=== PATIENT | female | born 1965 | race Caucasian/White ===

== ENCOUNTER 2023-08-13 09:26 | Outpatient (OUT) | payer MEDICARE, SELFPAY ==
--- NOTE | 2023-08-13 10:30 | MM_ITS ---
Patient Name: BRIE ELDRIDGE MR#: [id number] : 1965 Exam Date: 08/13/2023 Ordering Doctor: DR Jack Robles . RADIOLOGY REPORT PROCEDURE: MM SCREENING MAMMO BI COMPARISON: MG MAMM SCREEN VERONICA W CAD, 07/04/2021. MG MAMM SCREEN VERONICA W CAD, 12/22/2017. MG MAMM SCREEN VERONICA W CAD, 08/12/2022. INDICATIONS: Screening Calculator Name NCI Breast Cancer Risk Assessment Tool 5 Year Breast Cancer Risk 1.40% Lifetime Breast Cancer Risk 8.70% Personal Breast Cancer No Personal Ovarian Cancer No Treatments None Family Cancers None LOCATION: [facility] BREAST COMPOSITION: Scattered areas fibroglandular density. FINDINGS: DIAGNOSTIC CATEGORY 1--NEGATIVE. RIGHT BREAST: No significant suspicious finding. No significant change has occurred. LEFT BREAST: No significant suspicious finding. No significant change has occurred. RECOMMENDATIONS: ROUTINE MAMMOGRAM AND CLINICAL EVALUATION IN 12 MONTHS. PLEASE NOTE: A NORMAL MAMMOGRAM DOES NOT EXCLUDE THE POSSIBILITY OF BREAST CANCER. A CLINICALLY SUSPICIOUS PALPABLE LUMP SHOULD BE BIOPSIED. Dictated by: Alejandro Sanz M.D. on 08/13/2023 at 14:26 Approved by: Alejandro Sanz M.D. on 08/13/2023 at 14:28
== END 2023-08-13 09:27 | disposition home or self-care (01) ==
LOC: MAMMO 09:26
PROVIDERS: PCP Family Medicine; Visit Provider Family Medicine
DX: Z12.31 Encounter for screening mammogram for malignant neoplasm of breast (principal)
CPT/HCPCS: 77067

== ENCOUNTER 2023-10-11 11:38 | Outpatient (OUT) | payer MEDICARE, SELFPAY ==
--- NOTE | 2023-10-11 11:54 | XR_ITS ---
The [address] [address] Patient Name: BRIE ELDRIDGE MRN: [id number] date: 1965 Sex: F Assigned Patient Location: [facility] Current Patient Location: Accession/Order Number: [id number] Exam Date: 10/11/2023 12:15 Report Date: 10/12/2023 07:42 At the request of: NANCY PLATA Procedure: XR shoulder RT min 2V PROCEDURE: XR shoulder RT min 2V COMPARISON: None. HISTORY: pain in right shoulder M25.511 FINDINGS: BONES:No acute fracture or dislocation. Contour deformity of the distal clavicle likely representing resection with cranial displacement in relation to the acromion process. Contour deformity of the humeral head likely remote healed fracture. High riding humeral head suggests chronic rotator cuff tear SOFT TISSUES:Negative. No visible soft tissue swelling. EFFUSION:None visible. OTHER: Negative. XR/XR shoulder RT min 2V IMPRESSION: Posttraumatic changes Likely chronic rotator cuff injury Electronically authenticated by: RON ORTEGA Date: 10/12/2023 07:42
--- OUTSIDE RECORDS SUMMARY | 2023-10-11 11:57 | XMS_ITS | CCD ---
Author Name Unknown Address [address] [facility] [address] [place] [address] Organization [facility] Care Team Providers Care Bath Mix Operator Name Role Phone BONI ., DR CRUZ Primary Care Unavailable FANTA, DR DEZ Lujan Consulting Unavailable HIGHLANDER, NASIR Donis Attending Unavailable HIGHLANDER, NASIR Donis Admitting Unavailable HIGHLANDER, NASIR Donis Consulting Unavailable HOY ., DR CRUZ Consulting Unavailable HOY ., DR CRUZ Primary Care Unavailable HOY ., DR CRUZ Admitting Unavailable HOY ., DR CRUZ Attending Unavailable WEST, DR MINA De La [place]ega Consulting Unavailable HOY ., DR CRUZ Consulting Unavailable HOY ., DR CRUZ Primary Care Unavailable HOY ., DR CRUZ Admitting Unavailable HOY ., DR CRUZ Attending Unavailable HOY ., DR CRUZ Primary Care Unavailable HOY ., DR CRUZ Admitting Unavailable HOY ., DR CRUZ Attending Unavailable HOY ., DR CRUZ Consulting Unavailable WEST, DR MINA De La Vega Consulting Unavailable HOY ., DR CRUZ Primary Care Unavailable RICCO COLE Attending Unavailable KELSEY, RICCO Admitting Unavailable WEST, DR MINA De La [place]ega Consulting Unavailable RICCO COLE Consulting Unavailable Problems Active Problems Problem Classification Problem Date Documented Da te Episodic/Chronic Congestive heart failure; nonhypertensive (1 source) Unspecified diastolic (congestive) heart failure; Translations: [UNSPECIFIED DIASTOLIC HEART FAILURE] Onset: 12-23-2022 Chronic Deficiency and other anemia (1 source) Anemia, unspecified; Translations: [ANEMIA UNSPECIFIED] Onset: 12-23-2022 Episodic Diabetes mellitus without complication (1 source) Other abnormal glucose; Translations: [OTHER ABNORMAL GLUCOSE] Onset: 12-23-2022 Episodic Hypertension with complications and secondary hypertension (1 source) Hypertensive heart disease with heart failure; Translations: [HTN HEART DISEASE W/HEART FAIL] Onset: 12-23-2022 Chronic Nutritional deficiencies (1 source) Vitamin D deficiency, unspecified; Translations: [VITAMIN D DEFICIENCY UNSPECIFIED] Onset: 12-23-2022 Chronic Other connective tissue disease (4 sources) Olecranon bursitis, left elbow; Translations: [OLECRANON BURSITIS LEFT ELBOW] Onset: 12-17-2022 Episodic Unclassified (2 sources) CONTACT W/AND (SUSP) EXPOS COVID-19; Translations: [CONTACT W/AND (SUSP) EXPOS COVID-19] Onset: 08-21-2022 Unclassified (1 source) COUGH, UNSPECIFIED; Translations: [COUGH, UNSPECIFIED] Onset: 08-21-2022 Viral infection (1 source) COVID-19; Translations: [COVID-19] Onset: 08-21-2022 Past or Other Problems Problem Classification Problem Date Documented Da te Episodic/Chronic Fracture of lower limb (4 sources) Displaced fracture of first metatarsal bone, right foot, subsequent encounter for fracture with routine healing; Translations: [DSPL FX 1ST MT BN RT FT SUB FX RTN] Onset: 02-24-2022 Episodic Other screening for suspected conditions (not mental disorders or infectious disease) (4 sources) Encounter for screening mammogram for malignant neoplasm of breast; Translations: [ENC SCR MAMMO MALIG NEOPLASM BREAST] Onset: 08-12-2022 Episodic Other upper respiratory disease (1 source) Nasal congestion; Translations: [NASAL CONGESTION] Onset: 08-21-2022 Episodic Unclassified (1 source) CONTACT W/AND (SUSP) EXPOS COVID-19; Translations: [CONTACT W/AND (SUSP) EXPOS COVID-19] Onset: 08-18-2022 Results Test Name Value Interpretation Reference Range Facility BNPon 12-17-2022 Natriuretic peptide B (Bld) [Mass/Vol] 87.0 pg/mL Normal <=900.0 [facility] Comment on above: Performed By: #### T SH, BNP, T7, CRP, CMP #### [facility] [address] [place] [address] Dr. Nette Rios CBC AUTO DIFFon 12-17-2022 BASO # 0.1 103/ul Normal 0.0-0.1 [facility] Comment on above: Performed By: #### C BC #### [facility] [address] [place] [address] Dr. Nette Rios Basophils/100 WBC (Bld) 1.2 % Normal 0.2-2.0 [facility] Comment on above: Performed By: #### C BC #### [facility] [address] [place] [address] Dr. Nette Rios EO # 0.3 103/ul Normal 0.0-0.7 [facility] Comment on above: Performed By: #### C BC #### [facility] [address] [place] [address] Dr. Nette Rios Eosinophils/100 WBC (Bld) 5.8 % Normal 0.9-7.0 [facility] Comment on above: Performed By: #### C BC #### [facility] [address] [place] [address] Dr. Nette Rios Erythrocyte distribution width (RBC) [Ratio] 12.6 % Normal 11.0-15.0 [facility] Comment on above: Performed By: #### C BC #### [facility] [address] [place] [address] Dr. Nette Rios Hematocrit (Bld) [Volume fraction] 42.6 % Normal 36.0-48.0 [facility] Comment on above: Performed By: #### C BC #### [facility] [address] [place] [address] Dr. Nette Rios Hemoglobin (Bld) [Mass/Vol] 14.0 g/dL Normal 12.0-16.0 [facility] Comment on above: Performed By: #### C BC #### [facility] [address] [place] [address] Dr. Nette Rios IG # 0.01 10e3/ul Normal 0.00-0.03 [facility] Comment on above: Performed By: #### C BC #### [facility] [address] [place] [address] Dr. Nette Rios IG % 0.2 % Normal 0.0-0.5 [facility] Comment on above: Performed By: #### C BC #### [facility] [address] [place] [address] Dr. Nette Rios LYMPH # 2.7 103/ul Normal 1.2-3.8 [facility] Comment on above: Performed By: #### C BC #### [facility] [address] [place] [address] Dr. Nette Rios Lymphocytes/100 WBC (Bld) 48.0 % Normal 20.5-60.0 [facility] Comment on above: Performed By: #### C BC #### [facility] [address] [place] [address] Dr. Nette Rios MANUAL DIFF REQ NO Normal [facility] Comment on above: Performed By: #### C BC #### [facility] [address] [place] [address] Dr. Nette Rios MCH (RBC) [Entitic mass] 30.6 pg Normal 26.7-34.0 [facility] Comment on above: Performed By: #### C BC #### [facility] [address] [place] [address] Dr. Nette Rios MCHC (RBC) [Mass/Vol] 32.9 g/dL Normal 29.9-35.2 [facility] Comment on above: Performed By: #### C BC #### [facility] [address] [place] [address] Dr. Nette Rios MCV (RBC) [Entitic vol] 93.2 fL Normal 81.0-99.0 [facility] Comment on above: Performed By: #### C BC #### [facility] [address] [place] [address] Dr. Nette Rios MONO # 0.4 103/ul Normal 0.3-0.8 [facility] Comment on above: Performed By: #### C BC #### [facility] [address] [place] [address] Dr. Nette Rios Monocytes/100 WBC (Bld) 7.4 % Normal 1.7-12.0 [facility] Comment on above: Performed By: #### C BC #### [facility] [address] [place] [address] Dr. Nette Rios NEUT # 2.1 103/ul Normal 1.4-6.5 [facility] Comment on above: Performed By: #### C BC #### [facility] [address] [address] [address] Nette Rios Neutrophils/100 WBC (Bld) 37.4 % Critically low 43.0-75.0 [facility] Comment on above: Performed By: #### C BC #### [facility] [address] [address] [address] Nette Rios Platelet mean volume (Bld) [Entitic vol] 10.7 fL Normal 9.5-13.5 [facility] Comment on above: Performed By: #### C BC #### [facility] [address] [address] [address] Nette Rios PLT 279 103/ul Normal 150-450 [facility] Comment on above: Performed By: #### C BC #### [facility] [address] [address] [address] Nette Rios RBC 4.57 106/ul Normal 4.20-5.40 [facility] Comment on above: Performed By: #### C BC #### [facility] [address] [address] [address] Nette Rios WBC 5.7 103/ul Normal 4.0-11.0 [facility] Comment on above: Performed By: #### C BC #### [facility] [address] [address] [address] Nette Rios CRPon 12-17-2022 CRP [Mass/Vol] mg/L Normal <=1.0 [facility] Comment on above: Performed By: #### T SH, BNP, T7, CRP, CMP ####[facility] [address] [address]Dr. Nette Rios FREE THYROXINE INDEX T7on FTI 2.85 Normal 1.30-4.50 [facility] Comment on above: Performed By: #### T SH, BNP, T7, CRP, CMP ####[facility] [address] [address]Dr. Nette Rios T3U 31.0 % Normal 30.0-39.0 [facility] Comment on above: Performed By: #### T SH, BNP, T7, CRP, CMP ####[facility] [address] [address]DrNica Rios T4 [Mass/Vol] 9.20 ug/dL Normal 4.80-13.90 [facility] Comment on above: Performed By: #### T SH, BNP, T7, CRP, CMP ####[facility] [address] [address]DrNica Rios GLYCOHEMOGLOBIN A1Con 2022 ADA RECOMMENDATION SEE BELOW Normal [facility] Comment on above: Result Comment: ADA RECOMMENDED LIMIT 4.0 - 6.0 ADA THERAPEUTIC TARGET < 7.0 ACTION SUGGESTED > 7.0 Performed By: #### A 1C ####[facility] [address] [address]Dr. Nette Rios Glucose [Mass/Vol] 97 mg/dL Normal [facility] Comment on above: Performed By: #### A 1C ####[facility] [address] [address]DrNica Rios HbA1c (Bld) [Mass fraction] 5.0 % Normal 4.5-6.2 [facility] Comment on above: Performed By: #### A 1C ####[facility] [address] [address]Dr. Nette Rios IRONon 12-17-2022 Iron [Mass/Vol] 97.0 ug/dL Normal 50.0-170.0 [facility] Comment on above: Performed By: #### V ITAD, IRON #### [facility] [address] [address] [address] Nette Rios PROF 14(COMP METB)on 023 Albumin [Mass/Vol] 4.0 g/dL Normal 3.4-5.0 [facility] Comment on above: Performed By: #### T SH, BNP, T7, CRP, CMP ####[facility] [address] [address]Dr. Nette Rios Albumin/Globulin [Mass ratio] 1.1 {ratio} Normal [facility] Comment on above: Performed By: #### T SH, BNP, T7, CRP, CMP ####[facility] [address] [address]Dr. Nette Rios ALP [Catalytic activity/Vol] 74 U/L Normal 46-116 [facility] Comment on above: Performed By: #### T SH, BNP, T7, CRP, CMP ####[facility] [address] [address]Dr. Nette Rios ALT [Catalytic activity/Vol] 21 U/L Normal 14-59 [facility] Comment on above: Performed By: #### T SH, BNP, T7, CRP, CMP ####[facility] [address] [place], [place] [address]Dr. Nette Rios Anion gap [Moles/Vol] 9.9 mmol/L Normal [facility] Comment on above: Performed By: #### T SH, BNP, T7, CRP, CMP ####[facility] [address] [place], [place] [address]Dr. Nette Rios AST [Catalytic activity/Vol] 16 U/L Normal 15-37 [facility] Comment on above: Performed By: #### T SH, BNP, T7, CRP, CMP ####[facility] [address] [address]Dr. Nette Rios Bilirubin [Mass/Vol] 0.6 mg/dL Normal 0.2-1.0 [facility] Comment on above: Performed By: #### T SH, BNP, T7, CRP, CMP ####[facility] [address] [address]Dr. Mattiewallace Rios Calcium [Mass/Vol] 9.3 mg/dL Normal 8.5-10.1 [facility] Comment on above: Performed By: #### T SH, BNP, T7, CRP, CMP ####[facility] [address] [address]Dr. Nette Rios Chloride [Moles/Vol] 104 mmol/L Normal 98-107 [facility] Comment on above: Performed By: #### T SH, BNP, T7, CRP, CMP ####[facility] [address] [address]Dr. Nette Rios CO2 [Moles/Vol] 28.1 mmol/L Normal 21.0-32.0 [facility] Comment on above: Performed By: #### T SH, BNP, T7, CRP, CMP ####[facility] [address] [place], [place] [address]Dr. Nette Rios Creatinine [Mass/Vol] 0.69 mg/dL Normal 0.55-1.02 [facility] Comment on above: Performed By: #### T SH, BNP, T7, CRP, CMP ####[facility] [address] [place], [place] [address]Dr. Nette Rios EGFR-AF PUERTO RICAN >60 Normal >=60 [facility] Comment on above: Performed By: #### T SH, BNP, T7, CRP, CMP ####[facility] [address] [place], [place] [address]Dr. Nette Rios EGFR-NON AF PUERTO RICAN >60 Normal >=60 [facility] Comment on above: Performed By: #### T SH, BNP, T7, CRP, CMP ####[facility] [address] [place], [place] [address]Dr. Nette Rios Globulin (S) [Mass/Vol] 3.6 g/dL Normal [facility] Comment on above: Performed By: #### T SH, BNP, T7, CRP, CMP ####[facility] [address] [place], [place] [address]Dr. Nette Rios Glucose [Mass/Vol] 100 mg/dL Normal 74-106 [facility] Comment on above: Performed By: #### T SH, BNP, T7, CRP, CMP ####[facility] [address] [place], [place] [address]Dr. Nette Rios Potassium [Moles/Vol] 4.0 mmol/L Normal 3.5-5.1 [facility] Comment on above: Performed By: #### T SH, BNP, T7, CRP, CMP ####[facility] [address] [id number]. Nette Rios Protein [Mass/Vol] 7.6 g/dL Normal 6.4-8.2 [facility] Comment on above: Performed By: #### T SH, BNP, T7, CRP, CMP ####[facility] [address] [id number]. Nette Rios Sodium [Moles/Vol] 138 mmol/L Normal 136-145 [facility] Comment on above: Performed By: #### T SH, BNP, T7, CRP, CMP ####[facility] [address] [address]Dr. Nette Rios Urea nitrogen [Mass/Vol] 11.0 mg/dL Normal 7.0-18.0 [facility] Comment on above: Performed By: #### T SH, BNP, T7, CRP, CMP ####[facility] [address] [address]Dr. Nette Rios Urea nitrogen/Creatinine [Mass ratio] 15.9 mg/mg Normal [facility] Comment on above: Performed By: #### T SH, BNP, T7, CRP, CMP ####[facility] [address] [address]Dr. Nette Rios TSHon 12-17-2022 TSH 2.485 uIU/mL Normal 0.358-3.740 [facility] Comment on above: Performed By: #### T SH, BNP, T7, CRP, CMP ####[facility] [address] [id number]. Nette Rios VITAMIN D 25 OHon 12-17-2022 VIT D 25-OH 53.4 ng/mL Normal [facility] Comment on above: Performed By: #### V ITAD, IRON #### [facility] [address] [address] [address] Nette Rios VIT D RANGES SEE BELOW Normal [facility] Comment on above: Result Comment: <20 ng/mL Vit D deficient 20 - <30 ng/mL Vit D insufficient 30 - 100 ng/mL Vit D sufficient >100 ng/mL Potential Toxicity Performed By: #### V ITAD, IRON #### [facility] [address] [address] [address] Nette Rios Covid-19 PCR ([facility])on SARS-CoV-2 (COVID-19) RNA NERY+probe Ql (Unsp spec) Detected Critically abnormal NOT DETECTED [facility] Comment on above: Result Comment: This test is not yet approved or cleared by the [place] FDA. When there are no FDA-approved or cleared tests available, and other criteria are met, FDA can make tests available under an emergency access mechanism called an Emergency Use Authorization (EUA). The EUA for this test is supported by the [place] of Health and Human Service's (HHS's) declaration that circumstances exist to justify the emergency use of in vitro diagnostics for the detection and/or diagnosis of the virus that causes COVID-19. This EUA will remain in effect (meaning this test can be used) for the duration of the COVID-19 declaration justifying emergency of IVDs, unless it is terminated or revoked by FDA (after which the test may no longer be used). Performed By: #### C VDTBH #### [facility] [address] [place] [address] Dr. Nette Rios INFLUENZA A AND B AGon 08-[facility] SEE BELOW Normal [facility] Comment on above: Result Comment: Nega tive for Flu A protein angiten. Infection due to Flu A cannot be ruled out. Flu A angiten in the sample may be below the detection limit of the test. Performed By: #### I NFLUAB #### [facility] [address] [place] [address] Dr. Nette Rios INFLUBNEG SEE BELOW Normal [facility] Comment on above: Result Comment: Nega tive for Flu B protein antigen. Infection due to Flu B cannot be ruled out. Flu B antigen in the sample may be below the detection limit of the test. Performed By: #### I NFLUAB #### [facility] [address] [place] [address] Dr. Nette Rios INFLUENZA A AG Negative Normal NEGATIVE SEE COMMENT [facility] Comment on above: Performed By: #### I NFLUAB #### [facility] [address] [address] [address] Nette Rios INFLUENZA B AG Negative Normal NEGATIVE SEE COMMENT [facility] Comment on above: Performed By: #### I NFLUAB #### [facility] [address] [address] [address] Nette Rios MG MAMM SCREEN VERONICA W CADon 1 10-13-2021 MG MAMM SCREEN VERONICA W CAD Patient: BRIE ELDRIDGE Exam Date: 08/12/2022 : 1965 Gender:F Ordering : DR NANCY PLATA . Admission #: [id number] Family : Order #: [id number] CLICK HERE TO VIEW EXAM RADIOLOGY REPORT PROCEDURE: MAMMOGRAM BILATERAL SCREENING DIGITAL WITH COMPUTER AIDED DETECTION COMPARISON: MG MAMM SCREEN VERONICA W CAD, 07/04/2021. INDICATIONS: Screening mammography Calculator Name NCI Breast Cancer Risk Assessment Tool 5 Year Breast Cancer Risk 1.40% Lifetime Breast Cancer Risk 8.90% Personal Breast Cancer No Personal Ovarian Cancer No Treatments None Family Cancers None LOCATION: [facility] BREAST COMPOSITION: Scattered areas fibroglandular density. FINDINGS: DIAGNOSTIC CATEGORY 1--NEGATIVE. NO CHANGE FROM COMPARISON ASSESSMENT. Scattered benign-appearing calcifications are present. RIGHT BREAST: No significant suspicious finding. LEFT BREAST: No significant suspicious finding. RECOMMENDATIONS: ROUTINE MAMMOGRAM AND CLINICAL EVALUATION IN 12 MONTHS. PLEASE NOTE: A NORMAL MAMMOGRAM DOES NOT EXCLUDE THE POSSIBILITY OF BREAST CANCER. A CLINICALLY SUSPICIOUS PALPABLE LUMP SHOULD BE BIOPSIED. Dictated by: Mina Ortega MD on 08/13/2022 at 11:35 Approved by: Mina Ortega MD on 08/13/2022 at 11:36 Normal [facility] Encounters Encounter Date Encounter Type Care Provider Facility Start: 12-17-2022 End: 12-18-[address] NANCY PLATA . Facility:[facility] Start: 08-18-2022 End: 08-18-[address] NANCY PLATA . Facility:[facility] Start: 08-12-2022 End: 08-13-[address] NANCY PLATA . Facility:[facility] Start: 02-24-2022 End: 02-25-[address] NANCY PLATA . Facility:[facility] Start: 01-07-2022 End: 01-08-[address] NANCY PLATA . Facility: Payers Date Payer Category Payer Unknown [id number] 2.16.84 [id number] 1965 Unknown [id number] 2.16.84 [id number] 1965 Unknown [id number] 2.16.84 [id number] 1965 Unknown [id number] 2.16.84 [id number] 1965 Unknown [id number] 2.16.84 [id number] 1958 Medicare [id number] Clinical Note 12-17-2022 Note Date & Type Note Facility 12-17-2022 Note PROCEDURE: XR HIP RT 2 3V W PELVIS COMPARISON: None. HISTORY: Bursitis of olecranon of left elbow FINDINGS: BONES:Moderate degenerative changes of the spine. Mild bilateral hip osteoarthropathy. SOFT TISSUES: Well-circumscribed calcification lateral to the greater trochanter. No visible soft tissue swelling. EFFUSION:None visible. OTHER: Negative. IMPRESSION: No acute abnormality Electronically authenticated by: MINA ORTEGA Date: 2022-12-17 09:58 [facility] Clinical Note 02-24-2022 Note Date & Type Note Facility 02-24-2022 Note PROCEDURE: XR FOOT R T MIN 3 VIEWS COMPARISON: 01/07/2022 HISTORY: Pain in right foot FINDINGS: BONES:Stable angulation of a dorsal fixation plate across the first metatarsal-phalangeal joint. Widening/incomplete bony bridging along the plantar diffuse joint. No additional fracture or dislocation. Subchondral cystic change lateral cuneiform. Persistent flexion of the toes limits their evaluation. SOFT TISSUES:Negative. No visible soft tissue swelling. EFFUSION:None visible. OTHER: Negative. IMPRESSION: Stable exam Electronically authenticated by: MINA ORTEGA Date: 2022-02-24 16:38 [facility] Clinical Note 05-25-2022 Note Date & Type Note Facility 01-07-2022 Note PROCEDURE: XR FOOT R T MIN 3 VIEWS HISTORY: Pain in right foot COMPARISON: XR foot right 12/16/2021 FINDINGS: BONES:Mechanical fusion of the first tarsal-metatarsal joints with increasing sclerosis of the bone ends and intervening space. Osseous fusion of the first toe interphalangeal joint. Generalized osteopenia of the first toe and degenerative/posttraumatic changes. SOFT TISSUES:No visible soft tissue swelling. EFFUSION:None visible. OTHER: Negative. IMPRESSION: 1. First metatarsophalangeal joint fusion without evidence of hardware failure or change in alignment. Increasing ossification of intervening bone space consistent with ongoing bone healing/fusion. Electronically authenticated by: DEZ JEWELL Date: 2022-01-07 11:16 [facility] Summary Purpose Family History No Family History Records Found Advance Directives No Advanced Directives Records Found Additional Source Comments INFORMATION SOURCE (unrecogn ized section and content) DATE CREATED AUTHOR 12/24/2022 [facility] FOR RECORDS PERTAINING TO PATIENTS WHO ARE OR HAVE BEEN ENROLLED IN A CHEMICAL DEPENDENCY/SUBSTANCEABUSE PROGRAM, SOME INFORMATION MAY BE OMITTED. This clinical summary was aggregated from multiple sources. Caution should be exercised in using it in the provision of clinical care. This summary normalizes information from multiple sources, and as a consequence, information in this document may materially change the coding, format and clinical context of patient data. In addition, data may be omitted in some cases. CLINICAL DECISIONS SHOULD BE BASED ON THE PRIMARY CLINICAL RECORDS. [facility] [employer] [facility] provides no warranty or guarantee of the accuracy or completeness of information in this document.
== END 2023-10-11 11:39 | disposition home or self-care (01) ==
LOC: RAD 11:42
PROVIDERS: PCP Family Medicine; Visit Provider Family Medicine
DX: M25.511 Pain in right shoulder (principal)
CPT/HCPCS: 73030

== ENCOUNTER 2023-10-25 10:14 | Day surgery (SDC) | payer MEDICARE, SELFPAY ==
--- NOTE | 2023-10-25 10:18 | FL_ITS ---
[address] [address] Patient Name: BRIE ELDRIDGE MRN: [id number] date: 1965 Sex: F [place]igned Patient Location: [place] Current Patient Location: [place] Accession/Order Number: [id number] Exam Date: 10/25/2023 10:55 Report Date: 10/25/2023 12:12 At the request of: NANCY PLATA Procedure: FL shoulder inj RT EXAMINATION: FL shoulder inj RT, FL guided needle placement HISTORY: Right Shoulder Pain COMPARISON: No relevant comparison available. TECHNIQUE: An arthrogram was performed under fluoroscopic guidance using non-ionic contrast material in the usual sterile manner after obtaining informed consent. Standard level fluoroscopic mode of operation utilized. FINDINGS: JOINT: Right shoulder NEEDLE: 25 gauge, 5.5 spinal needle. MEDICATION: 2cc buffered 1% lidocaine for subcutaneous anesthesia 2cc Omnipaque-240 iodinated contrast to visualize the joint space 40 mg Depo-Medrol and one mL, 3 mL's of 0.5% bupivacaine, 3 cc of sterile saline injected into the joint space. TECHNIQUE: Anterior approach. A single stick was successful in gaining access to the joint space. COMPLICATIONS: None. BONES: Severe glenohumeral joint osteoarthritis with likely mnfp-fd-dyll articulation. Contour deformity of the distal clavicle likely representing prior resection. The clavicle is caudally displaced in relation to the acromion process. High riding humeral head suggests rotator cuff injury OTHER: Extensors of contrast into the subacromial subdeltoid bursa FL/FL shoulder inj RT IMPRESSION: Technically successful right shoulder arthrogram Severe glenohumeral osteoarthritis Rotator cuff tear/injury with high riding humeral head and opacification of the subacromial subdeltoid bursa Electronically authenticated by: RON ORTEGA Date: 10/25/2023 12:12
--- NOTE | 2023-10-25 10:18 | FL_ITS ---
[address] [address] Patient Name: BRIE ELDRIDGE MRN: [id number] date: 1965 Sex: F Assigned Patient Location: [place] Current Patient Location: [place] Accession/Order Number: [id number] Exam Date: 10/25/2023 10:55 Report Date: 10/25/2023 12:12 At the request of: NANCY PLATA Procedure: FL guided needle placement EXAMINATION: FL shoulder inj RT, FL guided needle placement HISTORY: Right Shoulder Pain COMPARISON: No relevant comparison available. TECHNIQUE: An arthrogram was performed under fluoroscopic guidance using non-ionic contrast material in the usual sterile manner after obtaining informed consent. Standard level fluoroscopic mode of operation utilized. FINDINGS: JOINT: Right shoulder NEEDLE: 25 gauge, 5.5 spinal needle. MEDICATION: 2cc buffered 1% lidocaine for subcutaneous anesthesia 2cc Omnipaque-240 iodinated contrast to visualize the joint space 40 mg Depo-Medrol and one mL, 3 mL's of 0.5% bupivacaine, 3 cc of sterile saline injected into the joint space. TECHNIQUE: Anterior approach. A single stick was successful in gaining access to the joint space. COMPLICATIONS: None. BONES: Severe glenohumeral joint osteoarthritis with likely ceih-ko-cpic articulation. Contour deformity of the distal clavicle likely representing prior resection. The clavicle is caudally displaced in relation to the acromion process. High riding humeral head suggests rotator cuff injury OTHER: Extensors of contrast into the subacromial subdeltoid bursa FL/FL guided needle placement IMPRESSION: Technically successful right shoulder arthrogram Severe glenohumeral osteoarthritis Rotator cuff tear/injury with high riding humeral head and opacification of the subacromial subdeltoid bursa Electronically authenticated by: RON ORTEGA Date: 10/25/2023 12:12
--- OUTSIDE RECORDS SUMMARY | 2023-10-25 10:18 | XMS_ITS | CCD ---
Author Name Unknown Address [address] [place] [address] Organization [facility] Care Team Providers Care Retail Area Manager Name Role Phone BONI ., DR CRUZ [...] B (Bld) [Mass/Vol] 87.0 pg/mL Normal <=900.0 [facility] Comment on above: Performed By: #### T SH, BNP, T7, CRP, CMP #### [facility] [address] [place] [address] Dr. Nette Rios CBC AUTO DIFFon 12-17-2022 BASO # 0.1 103/ul Normal 0.0-0.1 [facility] Comment on above: Performed By: #### C BC #### [facility] [address] [place] [address] Dr. Nette Rios Basophils/100 WBC (Bld) 1.2 % Normal 0.2-2.0 [facility] Comment on above: Performed By: #### C BC #### [facility] [address] [place] [address] Dr. Nette Rios EO # 0.3 103/ul Normal 0.0-0.7 [facility] Comment on above: Performed By: #### C BC #### [facility] [address] [place] [address] Dr. Nette Rios Eosinophils/100 WBC (Bld) 5.8 % Normal 0.9-7.0 [facility] Comment on above: Performed By: #### C BC #### [facility] [address] [place] [address] Dr. Nette Rios Erythrocyte distribution width (RBC) [Ratio] 12.6 % Normal 11.0-15.0 [facility] Comment on above: Performed By: #### C BC #### [facility] [address] [place] [address] Dr. Nette Rios Hematocrit (Bld) [Volume fraction] 42.6 % Normal 36.0-48.0 [facility] Comment on above: Performed By: #### C BC #### [facility] [address] [place] [address] Dr. Nette Rios Hemoglobin (Bld) [Mass/Vol] 14.0 g/dL Normal 12.0-16.0 [facility] Comment on above: Performed By: #### C BC #### [facility] [address] [place] [address] Dr. Nette Rios IG # 0.01 10e3/ul Normal 0.00-0.03 [facility] Comment on above: Performed By: #### C BC #### [facility] [address] [place] [address] Dr. Nette Rios IG % 0.2 % Normal 0.0-0.5 [facility] Comment on above: Performed By: #### C BC #### [facility] [address] [place] [address] Dr. Nette Rios LYMPH # 2.7 103/ul Normal 1.2-3.8 [facility] Comment on above: Performed By: #### C BC #### [facility] [address] [place] [address] Dr. Nette Rios Lymphocytes/100 WBC (Bld) 48.0 % Normal 20.5-60.0 [facility] Comment on above: Performed By: #### C BC #### [facility] [address] [place] [address] Dr. Nette Rios MANUAL DIFF REQ NO Normal [facility] Comment on above: Performed By: #### C BC #### [facility] [address] [place] [address] Dr. Nette Rios MCH (RBC) [Entitic mass] 30.6 pg Normal 26.7-34.0 [facility] Comment on above: Performed By: #### C BC #### [facility] [address] [place] [address] Dr. Nette Rios MCHC (RBC) [Mass/Vol] 32.9 g/dL Normal 29.9-35.2 [facility] Comment on above: Performed By: #### C BC #### [facility] [address] [place] [address] Dr. Nette Rios MCV (RBC) [Entitic vol] 93.2 fL Normal 81.0-99.0 [facility] Comment on above: Performed By: #### C BC #### [facility] [address] [place] [address] Dr. Nette Rios MONO # 0.4 103/ul Normal 0.3-0.8 [facility] Comment on above: Performed By: #### C BC #### [facility] [address] [place] [address] Dr. Nette Rios Monocytes/100 WBC (Bld) 7.4 % Normal 1.7-12.0 [facility] Comment on above: Performed By: #### C BC #### [facility] [address] [place] [address] Dr. Nette Rios NEUT # 2.1 103/ul Normal 1.4-6.5 [facility] Comment on above: Performed By: #### C BC #### [facility] [address] [address] [address] Nette Rios Neutrophils/100 WBC (Bld) 37.4 % Critically low 43.0-75.0 [facility] Comment on above: Performed By: #### C BC #### [facility] [address] [address] [address] Nette Rios Platelet mean volume (Bld) [Entitic vol] 10.7 fL Normal 9.5-13.5 [facility] Comment on above: Performed By: #### C BC #### [facility] [address] [address] [address] Nette Rios PLT 279 103/ul Normal 150-450 [facility] Comment on above: Performed By: #### C BC #### [facility] [address] [address] [address] Nette Rios RBC 4.57 106/ul Normal 4.20-5.40 [facility] Comment on above: Performed By: #### C BC #### [facility] [address] [address] [address] Nette Rios WBC 5.7 103/ul Normal 4.0-11.0 [facility] Comment on above: Performed By: #### C BC #### [facility] [address] [address] [address] Nette Rios CRPon 12-17-2022 CRP [Mass/Vol] mg/L Normal <=1.0 [facility] Comment on above: Performed By: #### T SH, BNP, T7, CRP, CMP ####[facility] [address] [address]Dr. Nette Rios FREE THYROXINE INDEX T7on FTI 2.85 Normal 1.30-4.50 [facility] Comment on above: Performed By: #### T SH, BNP, T7, CRP, CMP ####[facility] [address] [address]Dr. Nette Rios T3U 31.0 % Normal 30.0-39.0 [facility] Comment on above: Performed By: #### T SH, BNP, T7, CRP, CMP ####[facility] [address] [address]DrNica Rios T4 [Mass/Vol] 9.20 ug/dL Normal 4.80-13.90 [facility] Comment on above: Performed By: #### T SH, BNP, T7, CRP, CMP ####[facility] [address] [address]DrNica Rios GLYCOHEMOGLOBIN A1Con 2022 ADA RECOMMENDATION SEE BELOW Normal [facility] Comment on above: Result Comment: ADA RECOMMENDED LIMIT 4.0 - 6.0 ADA THERAPEUTIC TARGET < 7.0 ACTION SUGGESTED > 7.0 Performed By: #### A 1C ####[facility] [address] [address]Dr. Nette Rios Glucose [Mass/Vol] 97 mg/dL Normal [facility] Comment on above: Performed By: #### A 1C ####[facility] [address] [address]DrNica Rios HbA1c (Bld) [Mass fraction] 5.0 % Normal 4.5-6.2 [facility] Comment on above: Performed By: #### A 1C ####[facility] [address] [address]Dr. Nette Rios IRONon 12-17-2022 Iron [Mass/Vol] 97.0 ug/dL Normal 50.0-170.0 [facility] Comment on above: Performed By: #### V ITAD, IRON #### [facility] [address] [address] [address] Nette Rios PROF 14(COMP METB)on 023 Albumin [Mass/Vol] 4.0 g/dL Normal 3.4-5.0 [facility] Comment on above: Performed By: #### T SH, BNP, T7, CRP, CMP ####[facility] [address] [address]Dr. Nette Rios Albumin/Globulin [Mass ratio] 1.1 {ratio} Normal [facility] Comment on above: Performed By: #### T SH, BNP, T7, CRP, CMP ####[facility] [address] [address]Dr. Nette Rios ALP [Catalytic activity/Vol] 74 U/L Normal 46-116 [facility] Comment on above: Performed By: #### T SH, BNP, T7, CRP, CMP ####[facility] [address] [address]Dr. Nette Rios ALT [Catalytic activity/Vol] 21 U/L Normal 14-59 [facility] Comment on above: Performed By: #### T SH, BNP, T7, CRP, CMP ####[facility] [address] [place], [place] [address]Dr. Nette Rios Anion gap [Moles/Vol] 9.9 mmol/L Normal [facility] Comment on above: Performed By: #### T SH, BNP, T7, CRP, CMP ####[facility] [address] [place], [place] [address]Dr. Nette Rios AST [Catalytic activity/Vol] 16 U/L Normal 15-37 [facility] Comment on above: Performed By: #### T SH, BNP, T7, CRP, CMP ####[facility] [address] [address]Dr. Nette Rios Bilirubin [Mass/Vol] 0.6 mg/dL Normal 0.2-1.0 [facility] Comment on above: Performed By: #### T SH, BNP, T7, CRP, CMP ####[facility] [address] [address]Dr. Mattiewallace Rios Calcium [Mass/Vol] 9.3 mg/dL Normal 8.5-10.1 [facility] Comment on above: Performed By: #### T SH, BNP, T7, CRP, CMP ####[facility] [address] [address]Dr. Nette Rios Chloride [Moles/Vol] 104 mmol/L Normal 98-107 [facility] Comment on above: Performed By: #### T SH, BNP, T7, CRP, CMP ####[facility] [address] [address]Dr. Nette Rios CO2 [Moles/Vol] 28.1 mmol/L Normal 21.0-32.0 [facility] Comment on above: Performed By: #### T SH, BNP, T7, CRP, CMP ####[facility] [address] [place], [place] [address]Dr. Nette Rios Creatinine [Mass/Vol] 0.69 mg/dL Normal 0.55-1.02 [facility] Comment on above: Performed By: #### T SH, BNP, T7, CRP, CMP ####[facility] [address] [place], [place] [address]Dr. Nette Rios EGFR-AF PUERTO RICAN >60 Normal >=60 [facility] Comment on above: Performed By: #### T SH, BNP, T7, CRP, CMP ####[facility] [address] [place], [place] [address]Dr. Nette Rios EGFR-NON AF PUERTO RICAN >60 Normal >=60 [facility] Comment on above: Performed By: #### T SH, BNP, T7, CRP, CMP ####[facility] [address] [place], [place] [address]Dr. Nette Rios Globulin (S) [Mass/Vol] 3.6 g/dL Normal [facility] Comment on above: Performed By: #### T SH, BNP, T7, CRP, CMP ####[facility] [address] [place], [place] [address]Dr. Nette Rios Glucose [Mass/Vol] 100 mg/dL Normal 74-106 [facility] Comment on above: Performed By: #### T SH, BNP, T7, CRP, CMP ####[facility] [address] [place], [place] [address]Dr. Nette Rios Potassium [Moles/Vol] 4.0 mmol/L Normal 3.5-5.1 [facility] Comment on above: Performed By: #### T SH, BNP, T7, CRP, CMP ####[facility] [address] [id number]. Nette Rios Protein [Mass/Vol] 7.6 g/dL Normal 6.4-8.2 [facility] Comment on above: Performed By: #### T SH, BNP, T7, CRP, CMP ####[facility] [address] [id number]. Nette Rios Sodium [Moles/Vol] 138 mmol/L Normal 136-145 [facility] Comment on above: Performed By: #### T SH, BNP, T7, CRP, CMP ####[facility] [address] [address]Dr. Nette Rios Urea nitrogen [Mass/Vol] 11.0 mg/dL Normal 7.0-18.0 [facility] Comment on above: Performed By: #### T SH, BNP, T7, CRP, CMP ####[facility] [address] [address]Dr. Nette Rios Urea nitrogen/Creatinine [Mass ratio] 15.9 mg/mg Normal [facility] Comment on above: Performed By: #### T SH, BNP, T7, CRP, CMP ####[facility] [address] [address]Dr. Nette Rios TSHon 12-17-2022 TSH 2.485 uIU/mL Normal 0.358-3.740 [facility] Comment on above: Performed By: #### T SH, BNP, T7, CRP, CMP ####[facility] [address] [id number]. Nette Rios VITAMIN D 25 OHon 12-17-2022 VIT D 25-OH 53.4 ng/mL Normal [facility] Comment on above: Performed By: #### V ITAD, IRON #### [facility] [address] [address] [address] Nette Rios VIT D RANGES SEE BELOW Normal [facility] Comment on above: Result Comment: <20 ng/mL Vit D deficient 20 - <30 ng/mL Vit D insufficient 30 - 100 ng/mL Vit D sufficient >100 ng/mL Potential Toxicity Performed By: #### V ITAD, IRON #### [facility] [address] [address] [address] Nette Rios Covid-19 PCR ([facility])on SARS-CoV-2 (COVID-19) RNA NERY+probe Ql (Unsp spec) Detected Critically abnormal NOT DETECTED [facility] Comment on above: Result Comment: This test is not yet approved or cleared by the [place] FDA. When there are no FDA-approved or cleared tests available, and other criteria are met, FDA can make tests available under an emergency access mechanism called an Emergency Use Authorization (EUA). The EUA for this test is supported by the Manufacturing Team Member of Health and Human Service's (HHS's) declaration [...] used). Performed By: #### C VDTBH #### [facility] [address] [place] [address] Dr. Nette Rios INFLUENZA A AND B AGon 08-[address] [facility] SEE BELOW Normal [facility] Comment on above: Result Comment: Nega tive for Flu A protein angiten. Infection due to Flu A cannot be ruled out. Flu A angiten in the sample may be below the detection limit of the test. Performed By: #### I NFLUAB #### [facility] [address] [place] [address] Dr. Nette Rios INFLUBNEG SEE BELOW Normal [facility] Comment on above: Result Comment: Nega tive for Flu B protein antigen. Infection due to Flu B cannot be ruled out. Flu B antigen in the sample may be below the detection limit of the test. Performed By: #### I NFLUAB #### [facility] [address] [place] [address] Dr. Nette Rios INFLUENZA A AG Negative Normal NEGATIVE SEE COMMENT [facility] Comment on above: Performed By: #### I NFLUAB #### [facility] [address] [address] [address] Nette Rios INFLUENZA B AG Negative Normal NEGATIVE SEE COMMENT [facility] Comment on above: Performed By: #### I NFLUAB #### [facility] [address] [address] [address] Nette Rios MG MAMM SCREEN VERONICA W CADon 1 10-13-2021 MG MAMM SCREEN VERONICA W CAD Patient: BRIE ELDRIDGE Exam Date: 08/12/2022 : 1965 Gender:F Ordering : DR NANCY PLATA . Admission #: [id number] Family : Order #: [id number] CLICK HERE TO VIEW EXAM RADIOLOGY REPORT PROCEDURE: MAMMOGRAM BILATERAL SCREENING DIGITAL WITH COMPUTER AIDED DETECTION COMPARISON: MG MAMM SCREEN VERONICA W CAD, 07/04/2021. INDICATIONS: Screening mammography Calculator Name NCI Breast Cancer Risk Assessment Tool 5 Year Breast Cancer Risk 1.40% Lifetime Breast Cancer Risk 8.90% Personal Breast Cancer No Personal Ovarian Cancer No Treatments None Family Cancers None LOCATION: [facility] BREAST COMPOSITION: Scattered areas fibroglandular density. [...] Ortega MD on 08/13/2022 at 11:36 Normal [facility] Encounters Encounter Date Encounter Type Care Provider [...] Facility: Payers Date Payer Category Payer Unknown [id number] 2.16.84 [id number] 1965 Unknown [id number] 2.16.84 [id number] 1965 Unknown [id number] 2.16.84 [id number] 1965 Unknown [id number] 2.16.84 [id number] 1965 Unknown [id number] 2.16.84 [id number] 1958 Medicare [id number] Clinical Note 12-17-2022 Note Date & Type [...] by: MINA ORTEGA Date: 2022-12-17 09:58 [facility] Clinical Note 02-24-2022 Note Date & [...] by: MINA ORTEGA Date: 2022-02-24 16:38 [facility] Clinical Note 05-25-2022 Note Date & [...] authenticated by: DEZ JEWELL Date: 2022-01-07 11:16 [facility] Summary Purpose Family History No Family History Records Found Advance Directives No Advanced Directives Records Found Additional Source Comments INFORMATION SOURCE (unrecogn ized section and content) DATE CREATED AUTHOR 12/24/2022 [facility] FOR RECORDS PERTAINING TO PATIENTS WHO [...] BE BASED ON THE PRIMARY CLINICAL RECORDS. [facility]. provides no warranty or guarantee of the accuracy or completeness of information in this document.
[2023-10-25] MEDS: LIDOCAINE HCL 10 ML, SODIUM BICARBONATE 1 MEQ INJ (11:20)
[2023-10-25] MEDS: TRIAMCINOLONE ACETONIDE 40 MG/ML VIAL INJ (11:20)
[2023-10-25] MEDS: BUPIVACAINE HCL 0.5% PF 50 MG/10 ML VIAL 2 ML INJ (11:20)
--- NOTE | 2023-10-25 13:02 | SUR.PREOP ---
10/21/23 Pt mom Leticia instructed on date, time, prep, and procedure.
== END 2023-10-25 11:45 | disposition home or self-care (01) ==
LOC: FL 10:14
PROVIDERS: Radiology Diagnostic Radiology; PCP Family Medicine; Visit Provider Family Medicine
DX: M25.511 Pain in right shoulder (principal); M19.011 Primary osteoarthritis, right shoulder
CPT/HCPCS: 20610; 77002; Q9967

== ENCOUNTER 2023-12-23 08:24 | Outpatient (OUT) | payer MEDICARE, SELFPAY ==
--- OUTSIDE RECORDS SUMMARY | 2023-12-23 08:46 | XMS_ITS | CCD ---
Author Organization [facility] Care Team Providers Care Armored Service Technician Name Role Phone BONI ., DR CRUZ Primary Care Unavailable FANTA, DR DEZ Lujan Consulting Unavailable HIGHLANDERNASIR Attending Unavailable SOFYANDER, NASIR Donis Admitting Unavailable BRENDON, NASIR Donis Consulting Unavailable HOY ., DR [...] Primary Care Unavailable RICCO COLE Attending Unavailable RICCO COLE Admitting Unavailable WEST, DR MINA De La [...] B (Bld) [Mass/Vol] 87.0 pg/mL Normal <=900.0 [facility] Comment on above: Performed By: #### T SH, BNP, T7, CRP, CMP #### [facility] [address] [address] [address] Nette Rios CBC AUTO DIFFon 12-17-2022 BASO # 0.1 103/ul Normal 0.0-0.1 [facility] Comment on above: Performed By: #### C BC #### [facility] [address] [address] [address] Nette Rios Basophils/100 WBC (Bld) 1.2 % Normal 0.2-2.0 [facility] Comment on above: Performed By: #### C BC #### [facility] [address] [place] [address] Dr. Nette Rios EO # 0.3 103/ul Normal 0.0-0.7 [facility] Comment on above: Performed By: #### C BC #### [facility] [address] [place] [address] Dr. Nette Rios Eosinophils/100 WBC (Bld) 5.8 % Normal 0.9-7.0 [facility] Comment on above: Performed By: #### C BC #### [facility] [address] [place] [address] Dr. Nette Rios Erythrocyte distribution width (RBC) [Ratio] 12.6 % Normal 11.0-15.0 [facility] Comment on above: Performed By: #### C BC #### [facility] [address] [place] [address] Dr. Nette Rios Hematocrit (Bld) [Volume fraction] 42.6 % Normal 36.0-48.0 [facility] Comment on above: Performed By: #### C BC #### [facility] [address] [place] [address] Dr. Nette Rios Hemoglobin (Bld) [Mass/Vol] 14.0 g/dL Normal 12.0-16.0 [facility] Comment on above: Performed By: #### C BC #### [facility] [address] [place] [address] Dr. Nette Rios IG # 0.01 10e3/ul Normal 0.00-0.03 [facility] Comment on above: Performed By: #### C BC #### [facility] [address] [place] [address] Dr. Nette Rios IG % 0.2 % Normal 0.0-0.5 [facility] Comment on above: Performed By: #### C BC #### [facility] [address] [place] [address] Dr. Nette Rios LYMPH # 2.7 103/ul Normal 1.2-3.8 [facility] Comment on above: Performed By: #### C BC #### [facility] [address] [place] [address] Dr. Nette Rios Lymphocytes/100 WBC (Bld) 48.0 % Normal 20.5-60.0 [facility] Comment on above: Performed By: #### C BC #### [facility] [address] [place] [address] Dr. Nette Rios MANUAL DIFF REQ NO Normal [facility] Comment on above: Performed By: #### C BC #### [facility] [address] [place] [address] Dr. Nette Rios MCH (RBC) [Entitic mass] 30.6 pg Normal 26.7-34.0 [facility] Comment on above: Performed By: #### C BC #### [facility] [address] [place] [address] Dr. Nette Rios MCHC (RBC) [Mass/Vol] 32.9 g/dL Normal 29.9-35.2 [facility] Comment on above: Performed By: #### C BC #### [facility] [address] [place] [address] Dr. Nette Rios MCV (RBC) [Entitic vol] 93.2 fL Normal 81.0-99.0 [facility] Comment on above: Performed By: #### C BC #### [facility] [address] [place] [address] Dr. Nette Rios MONO # 0.4 103/ul Normal 0.3-0.8 [facility] Comment on above: Performed By: #### C BC #### [facility] [address] [place] [address] Dr. Nette Rios Monocytes/100 WBC (Bld) 7.4 % Normal 1.7-12.0 [facility] Comment on above: Performed By: #### C BC #### [facility] [address] [place] [address] Dr. Nette Rios NEUT # 2.1 103/ul Normal 1.4-6.5 [facility] Comment on above: Performed By: #### C BC #### [facility] [address] [address] [address] Nette Rios Neutrophils/100 WBC (Bld) 37.4 % Critically low 43.0-75.0 [facility] Comment on above: Performed By: #### C BC #### [facility] [address] [address] [address] Nette Rios Platelet mean volume (Bld) [Entitic vol] 10.7 fL Normal 9.5-13.5 [facility] Comment on above: Performed By: #### C BC #### [facility] [address] [address] [address] Nette Rios PLT 279 103/ul Normal 150-450 [facility] Comment on above: Performed By: #### C BC #### [facility] [address] [address] [address] Nette Rios RBC 4.57 106/ul Normal 4.20-5.40 [facility] Comment on above: Performed By: #### C BC #### [facility] [address] [address] [address] Nette Rios WBC 5.7 103/ul Normal 4.0-11.0 [facility] Comment on above: Performed By: #### C BC #### [facility] [address] [address] [address] Nette Rios CRPon 12-17-2022 CRP [Mass/Vol] mg/L Normal <=1.0 [facility] Comment on above: Performed By: #### T SH, BNP, T7, CRP, CMP ####[facility] [address] [id number][address] Nette Rios FREE THYROXINE INDEX T7on FTI 2.85 Normal 1.30-4.50 [facility] Comment on above: Performed By: #### T SH, BNP, T7, CRP, CMP ####[facility] [address] [id number]. Nette Rios T3U 31.0 % Normal 30.0-39.0 [facility] Comment on above: Performed By: #### T SH, BNP, T7, CRP, CMP ####[facility] [address] [id number] Rios T4 [Mass/Vol] 9.20 ug/dL Normal 4.80-13.90 [facility] Comment on above: Performed By: #### T SH, BNP, T7, CRP, CMP ####[facility] [address] [address]DrNica Rios GLYCOHEMOGLOBIN A1Con 2022 ADA RECOMMENDATION SEE BELOW Normal [facility] Comment on above: Result Comment: ADA RECOMMENDED LIMIT 4.0 - 6.0 ADA THERAPEUTIC TARGET < 7.0 ACTION SUGGESTED > 7.0 Performed By: #### A 1C ####[facility] [address] [address]Dr. Nette Rios Glucose [Mass/Vol] 97 mg/dL Normal [facility] Comment on above: Performed By: #### A 1C ####[facility] [address] [place], [place] [address]DrNica Rios HbA1c (Bld) [Mass fraction] 5.0 % Normal 4.5-6.2 [facility] Comment on above: Performed By: #### A 1C ####[facility] [address] [address]DrNica Rios IRONon 12-17-2022 Iron [Mass/Vol] 97.0 ug/dL Normal 50.0-170.0 [facility] Comment on above: Performed By: #### V ITAD, IRON #### [facility] [address] [place], [place] [address] Dr. Nette Rios PROF 14(COMP METB)on 023 Albumin [Mass/Vol] 4.0 g/dL Normal 3.4-5.0 [facility] Comment on above: Performed By: #### T SH, BNP, T7, CRP, CMP ####[facility] [address] [address]DrNica Rios Albumin/Globulin [Mass ratio] 1.1 {ratio} Normal [facility] Comment on above: Performed By: #### T SH, BNP, T7, CRP, CMP ####[facility] [address] [address]Dr. Nette Rios ALP [Catalytic activity/Vol] 74 U/L Normal 46-116 [facility] Comment on above: Performed By: #### T SH, BNP, T7, CRP, CMP ####[facility] [address] [place], [place] [address]Dr. Nette Rios ALT [Catalytic activity/Vol] 21 U/L Normal 14-59 [facility] Comment on above: Performed By: #### T SH, BNP, T7, CRP, CMP ####[facility] [address] [place], [place] [address]Dr. Nette Rios Anion gap [Moles/Vol] 9.9 mmol/L Normal [facility] Comment on above: Performed By: #### T SH, BNP, T7, CRP, CMP ####[facility] [address] [place], [place] [address]Dr. Nette Rios AST [Catalytic activity/Vol] 16 U/L Normal 15-37 [facility] Comment on above: Performed By: #### T SH, BNP, T7, CRP, CMP ####[facility] [address] [place], [place] [address]Dr. Nette Rios Bilirubin [Mass/Vol] 0.6 mg/dL Normal 0.2-1.0 [facility] Comment on above: Performed By: #### T SH, BNP, T7, CRP, CMP ####[facility] [address] [place], [place] [address]Dr. Nette Rios Calcium [Mass/Vol] 9.3 mg/dL Normal 8.5-10.1 [facility] Comment on above: Performed By: #### T SH, BNP, T7, CRP, CMP ####[facility] [address] [address]Dr. Nette Rios Chloride [Moles/Vol] 104 mmol/L Normal 98-107 [facility] Comment on above: Performed By: #### T SH, BNP, T7, CRP, CMP ####[facility] [address] [address]Dr. Nette Rios CO2 [Moles/Vol] 28.1 mmol/L Normal 21.0-32.0 [facility] Comment on above: Performed By: #### T SH, BNP, T7, CRP, CMP ####[facility] [address] [address]Dr. Nette Rios Creatinine [Mass/Vol] 0.69 mg/dL Normal 0.55-1.02 [facility] Comment on above: Performed By: #### T SH, BNP, T7, CRP, CMP ####[facility] [address] [place], [place] [address]Dr. Nette Gabriel EGFR-AF FAROESE >60 Normal >=60 [facility] Comment on above: Performed By: #### T SH, BNP, T7, CRP, CMP ####[facility] [address] [place], [place] [address]Dr. Nette Rios EGFR-NON AF FAROESE >60 Normal >=60 [facility] Comment on above: Performed By: #### T SH, BNP, T7, CRP, CMP ####[facility] [address] [place], [place] [address]Dr. Nette Gabriel Globulin (S) [Mass/Vol] 3.6 g/dL Normal [facility] Comment on above: Performed By: #### T SH, BNP, T7, CRP, CMP ####[facility] [address] [address]Dr. Nette Rios Glucose [Mass/Vol] 100 mg/dL Normal 74-106 [facility] Comment on above: Performed By: #### T SH, BNP, T7, CRP, CMP ####[facility] [address] [place], [place] [address]Dr. Mattiewallace Rios Potassium [Moles/Vol] 4.0 mmol/L Normal 3.5-5.1 [facility] Comment on above: Performed By: #### T SH, BNP, T7, CRP, CMP ####[facility] [address] [place], [place] [address]Dr. Nette Rios Protein [Mass/Vol] 7.6 g/dL Normal 6.4-8.2 [facility] Comment on above: Performed By: #### T SH, BNP, T7, CRP, CMP ####[facility] [address] [address]Dr. Nette Rios Sodium [Moles/Vol] 138 mmol/L Normal 136-145 [facility] Comment on above: Performed By: #### T SH, BNP, T7, CRP, CMP ####[facility] [address] [address]Dr. Nette Rios Urea nitrogen [Mass/Vol] 11.0 mg/dL Normal 7.0-18.0 [facility] Comment on above: Performed By: #### T SH, BNP, T7, CRP, CMP ####[facility] [address] [address]Dr. Nette Rios Urea nitrogen/Creatinine [Mass ratio] 15.9 mg/mg Normal [facility] Comment on above: Performed By: #### T SH, BNP, T7, CRP, CMP ####[facility] [address] [address]Dr. Nette Rios TSHon 12-17-2022 TSH 2.485 uIU/mL Normal 0.358-3.740 [facility] Comment on above: Performed By: #### T SH, BNP, T7, CRP, CMP ####[facility] [address] [address]Dr. Nette Riso VITAMIN D 25 OHon 12-17-2022 VIT D 25-OH 53.4 ng/mL Normal [facility] Comment on above: Performed By: #### V ITAD, IRON #### [facility] [address] [address] [address] Nette Rios VIT D RANGES SEE BELOW Normal [facility] Comment on above: Result Comment: <20 ng/mL Vit D deficient 20 - <30 ng/mL Vit D insufficient 30 - 100 ng/mL Vit D sufficient >100 ng/mL Potential Toxicity Performed By: #### V ITAD, IRON #### [facility] [address] [address] [address] Nette Rios Covid-19 PCR (CVDTB)on SARS-CoV-2 (COVID-19) RNA NERY+probe Ql (Unsp spec) Detected Critically abnormal NOT DETECTED [facility] Comment on above: Result Comment: This test is not yet approved or cleared by the [place] FDA. When there are no FDA-approved or cleared tests available, and other criteria are met, FDA can make tests available under an emergency access mechanism called an Emergency Use Authorization (EUA). The EUA for this test is supported by the [place] of Health and Human Service's (HHS's) declaration [...] used). Performed By: #### C VDTBH #### [facility] [address] [place] [address] Dr. Nette Rios INFLUENZA A AND B AGon 08-18 INFLUANEGH SEE BELOW Normal [facility] Comment on above: Result Comment: Nega tive for Flu A protein angiten. Infection due to Flu A cannot be ruled out. Flu A angiten in the sample may be below the detection limit of the test. Performed By: #### I NFLUAB #### [facility] [address] [address] [address] Nette Rios INFLUBNEGH SEE BELOW Normal [facility] Comment on above: Result Comment: Nega tive for Flu B protein antigen. Infection due to Flu B cannot be ruled out. Flu B antigen in the sample may be below the detection limit of the test. Performed By: #### I NFLUAB #### [facility] [address] [place] [address] Dr. Nette Rios INFLUENZA A AG Negative Normal NEGATIVE SEE COMMENT [facility] Comment on above: Performed By: #### I NFLUAB #### [facility] [address] [place], [place] [address] Dr. Nette Rios INFLUENZA B AG Negative Normal NEGATIVE SEE COMMENT [facility] Comment on above: Performed By: #### I NFLUAB #### [facility] [address] [place], [place] [address] Dr. Nette Rios MG MAMM SCREEN VERONICA W CADon 1 10-13-2021 MG MAMM SCREEN VERONICA W CAD Patient: BRIE ELDRIDGE Exam Date: 08/12/2022 : 1965 Gender:F Ordering : DR NANCY PLATA . Admission #: [id number] Family : Order #: [id number] CLICK HERE TO VIEW EXAM RADIOLOGY REPORT PROCEDURE: MAMMOGRAM BILATERAL SCREENING DIGITAL WITH COMPUTER AIDED DETECTION COMPARISON: MG MAMM SCREEN VERONICA W CAD, 07/04/2021. INDICATIONS: Screening mammography Calculator Name NCI Breast Cancer Risk Assessment Tool 5 Year Breast Cancer Risk 1.40% Lifetime Breast Cancer Risk 8.90% Personal Breast Cancer No Personal Ovarian Cancer No Treatments None Family Cancers None LOCATION: [facility] BREAST COMPOSITION: Scattered areas fibroglandular density. [...] Ortega MD on 08/13/2022 at 11:36 Normal [facility] Encounters Encounter Date Encounter Type Care Provider Facility Start: 12-17-2022 End: 12-18-[address] NANCY PLATA . Facility:[facility] Start: 08-18-2022 End: 08-18-[address] NANCY PLATA . Facility:[facility] Start: 08-12-2022 End: 08-13-[address] NANCY PLATA . Facility:[facility] Start: 02-24-2022 End: 02-25-[address] NANCY PLATA . Facility:[facility] Start: 01-07-2022 End: 05-26-[address] NANCY PLATA . Facility: Payers Date Payer Category Payer Unknown [id number] [id number] [id number] 1965 Unknown [id number] 2.16.84 [id number] 1965 Unknown [id number] 2.16.84 [id number] 1965 Unknown [id number] 2.16.84 [id number] 1965 Unknown [id number] 2.16.84 [id number] 1958 Medicare [id number] Clinical Note 12-17-2022 Note Date & Type [...] by: MINA ORTEGA Date: 2022-12-17 09:58 [facility] Clinical Note 02-24-2022 Note Date & [...] by: MINA ORTEGA Date: 2022-02-24 16:38 [facility] Clinical Note 01-07-2022 Note Date & Type Note Facility 01-07-2022 [...] authenticated by: DEZ JEWELL Date: 2022-01-07 11:16 [facility] Summary Purpose Family History No Family History Records Found Advance Directives No Advanced Directives Records Found Additional Source Comments INFORMATION SOURCE (unrecogn ized section and content) DATE CREATED AUTHOR 12/24/2022 [facility] FOR RECORDS PERTAINING TO PATIENTS WHO [...] BE BASED ON THE PRIMARY CLINICAL RECORDS. [employer] provides no warranty or guarantee of the accuracy or completeness of information in this document.
[2023-12-23 08:51] LABS: Basophils Absolute Auto 0.1 10^3/uL (0.0-0.1); Basophils Percent Auto 0.9 % (0.2-2.0); Eosinophils Absolute Auto 0.1 10^3/uL (0.0-0.7); Eosinophils Percent Auto 2.3 % (0.9-7.0); Hematocrit 42.4 % (36.0-48.0); Hemoglobin 13.7 g/dL (12.0-16.0); Immature Granulocytes Abs Auto 0.01 10^3/uL (0.00-0.03); Immature Granulocytes Pct Auto 0.2 % (0.0-0.5); Lymphocytes Absolute Auto 2.8 10^3/uL (1.2-3.8); Lymphocytes Percent Auto 49.6 % (20.5-60.0); Mean Corpuscular HGB Conc 32.3 g/dL (29.9-35.2); Mean Corpuscular Volume 95.9 fL (81.0-99.0); Mean Platelet Volume 11.1 fL (9.5-13.5); Monocytes Absolute Auto 0.4 10^3/uL (0.3-0.8); Monocytes Percent Auto 7.3 % (1.7-12.0); Neutrophils Absolute Auto 2.2 10^3/uL (1.4-6.5); Neutrophils Percent Auto 39.7 % (43.0-75.0); Platelet Count 218 10^3/uL (150-450); Red Blood Count 4.42 10^6/uL (4.20-5.40); Red Cell Distribution Width 12.8 % (11.0-15.0); White Blood Count 5.6 10^3/uL (4.0-11.0)
[2023-12-23 10:42] LABS: Estimated Average Glucose 97 mg/dL
[2023-12-23 10:58] LABS: Alanine Aminotransferase 22 U/L (14-59); Albumin Globulin Ratio 1.1; Albumin Level 3.8 g/dL (3.4-5.0); Alkaline Phosphatase 61 U/L (46-116); Anion Gap 13.1; Aspartate Amino Transferase 21 U/L (15-37); BUN Creatinine Ratio 23.6; Bilirubin Total 0.6 mg/dL (0.2-1.0); Calcium 9.5 mg/dL (8.5-10.1); Carbon Dioxide 25.9 mmol/L (21.0-32.0); Chloride 103 mmol/L (98-107); Chol HDL Ratio 3.3; Cholesterol 257 mg/dL (<=200); Estimated GFR (African America >60 (>=60); Estimated GFR (Non-African Ame >60 (>=60); Free T3 2.67 pg/mL (2.18-3.98); Globulin 3.4 g/dL; Glucose 96 mg/dL (74-106); HDL Cholesterol 78 mg/dL (40-60); Sodium 138 mmol/L (136-145); Thyroid Stimulating Hormone 2.259 uIU/mL (0.358-3.740); Total Protein 7.2 g/dL (6.4-8.2); Triglycerides 67 mg/dL (<=150); VLDL CHOLESTEROL 13.4 mg/dL
[2023-12-24 11:11] LABS: Insulin 4.2 uIU/mL (2.6-24.9)
== END 2023-12-23 08:25 | disposition home or self-care (01) ==
LOC: LAB 08:26
PROVIDERS: PCP Family Medicine; Visit Provider Family Medicine
DX: K64.9 Unspecified hemorrhoids (principal); S06.9X9A Unspecified intracranial injury with loss of consciousness of unspecified duration, initial encounter; E78.5 Hyperlipidemia, unspecified; R73.09 Other abnormal glucose; Z12.12 Encounter for screening for malignant neoplasm of rectum; D64.9 Anemia, unspecified; E55.9 Vitamin D deficiency, unspecified
CPT/HCPCS: 36415; 80053; 80061; 82306; 83036; 83525; 83540; 84436; 84443; 84481; 85025

== ENCOUNTER 2023-12-24 11:26 | Outpatient (REF) | payer MEDICARE, SELFPAY ==
[2023-12-24 12:46] LABS: Occult Blood Negative
== END 2023-12-24 11:27 | disposition home or self-care (01) ==
LOC: LAB 11:26
PROVIDERS: PCP Family Medicine; Visit Provider Family Medicine
DX: K64.9 Unspecified hemorrhoids (principal); S06.9X9A Unspecified intracranial injury with loss of consciousness of unspecified duration, initial encounter; E78.5 Hyperlipidemia, unspecified; R73.09 Other abnormal glucose; Z12.12 Encounter for screening for malignant neoplasm of rectum; D64.9 Anemia, unspecified; E55.9 Vitamin D deficiency, unspecified
CPT/HCPCS: G0328

== ENCOUNTER 2024-03-25 07:37 | Outpatient (OUT) | payer MEDICARE, SELFPAY ==
--- OUTSIDE RECORDS SUMMARY | 2024-03-25 07:41 | XMS_ITS | CCD ---
Author Organization [facility] Care Team Providers Care Plastic Surgery Nurse Name Role Phone BONI Yousif, DR CRUZ Primary Care Unavailable FANTA, DR DEZ Lujan Consulting Unavailable HIGHLANDERNASIR Attending Unavailable BRENDON, NASIR Donis Admitting Unavailable BRENDON, NASIR Donis Consulting Unavailable HOY ., DR CRUZ Consulting Unavailable HOY ., DR CRUZ Primary Care Unavailable HOY ., DR CRUZ Admitting Unavailable HOY ., DR CRUZ Attending Unavailable WEST, DR RON De La Vega Consulting Unavailable HOY ., DR RCUZ Consulting Unavailable HOY ., DR CRUZ Primary Care Unavailable HOY ., DR CRUZ Admitting Unavailable HOY ., DR CRUZ Attending Unavailable HOY ., DR CRUZ Primary Care Unavailable HOY ., DR CRUZ Admitting Unavailable HOY ., DR CRUZ Attending Unavailable HOY ., DR CRUZ Consulting Unavailable WEST, DR RON De La Vega Consulting Unavailable HOY ., DR CRUZ Primary Care Unavailable RICCO COLE Attending Unavailable RICCO COLE Admitting Unavailable JORDAN, DR RON De La Vega Consulting Unavailable RICCO COLE [...] B (Bld) [Mass/Vol] 87.0 pg/mL Normal <=900.0 [facility] Comment on above: Performed By: #### T SH, BNP, T7, CRP, CMP #### [facility] [address] [address] [address] Nette Rios CBC AUTO DIFFon 12-17-2022 BASO # 0.1 103/ul Normal 0.0-0.1 [facility] Comment on above: Performed By: #### C BC #### [facility] [address] [address] [address] Nette Rios Basophils/100 WBC (Bld) 1.2 % Normal 0.2-2.0 [facility] Comment on above: Performed By: #### C BC #### [facility] [address] [place] [address] Dr. Nette Rios EO # 0.3 103/ul Normal 0.0-0.7 [facility] Comment on above: Performed By: #### C BC #### [facility] [address] [place] [address] Dr. Nette Rios Eosinophils/100 WBC (Bld) 5.8 % Normal 0.9-7.0 [facility] Comment on above: Performed By: #### C BC #### [facility] [address] [place] [address] Dr. Nette Rios Erythrocyte distribution width (RBC) [Ratio] 12.6 % Normal 11.0-15.0 [facility] Comment on above: Performed By: #### C BC #### [facility] [address] [place] [address] Dr. Nette Rios Hematocrit (Bld) [Volume fraction] 42.6 % Normal 36.0-48.0 [facility] Comment on above: Performed By: #### C BC #### [facility] [address] [place] [address] Dr. Nette Rios Hemoglobin (Bld) [Mass/Vol] 14.0 g/dL Normal 12.0-16.0 [facility] Comment on above: Performed By: #### C BC #### [facility] [address] [place] [address] Dr. Nette Rios IG # 0.01 10e3/ul Normal 0.00-0.03 [facility] Comment on above: Performed By: #### C BC #### [facility] [address] [place] [address] Dr. Nette Rios IG % 0.2 % Normal 0.0-0.5 [facility] Comment on above: Performed By: #### C BC #### [facility] [address] [place] [address] Dr. Nette Rios LYMPH # 2.7 103/ul Normal 1.2-3.8 [facility] Comment on above: Performed By: #### C BC #### [facility] [address] [place] [address] Dr. Nette Rios Lymphocytes/100 WBC (Bld) 48.0 % Normal 20.5-60.0 [facility] Comment on above: Performed By: #### C BC #### [facility] [address] [place] [address] Dr. Nette Rios MANUAL DIFF REQ NO Normal [facility] Comment on above: Performed By: #### C BC #### [facility] [address] [place] [address] Dr. Nette Rios MCH (RBC) [Entitic mass] 30.6 pg Normal 26.7-34.0 [facility] Comment on above: Performed By: #### C BC #### [facility] [address] [place] [address] Dr. Nette Rios MCHC (RBC) [Mass/Vol] 32.9 g/dL Normal 29.9-35.2 [facility] Comment on above: Performed By: #### C BC #### [facility] [address] [place] [address] Dr. Nette Rios MCV (RBC) [Entitic vol] 93.2 fL Normal 81.0-99.0 [facility] Comment on above: Performed By: #### C BC #### [facility] [address] [place] [address] Dr. Nette Rios MONO # 0.4 103/ul Normal 0.3-0.8 [facility] Comment on above: Performed By: #### C BC #### [facility] [address] [place] [address] Dr. Nette Rios Monocytes/100 WBC (Bld) 7.4 % Normal 1.7-12.0 [facility] Comment on above: Performed By: #### C BC #### [facility] [address] [place] [address] Dr. Nette Rios NEUT # 2.1 103/ul Normal 1.4-6.5 [facility] Comment on above: Performed By: #### C BC #### [facility] [address] [address] [address] Nette Rios Neutrophils/100 WBC (Bld) 37.4 % Critically low 43.0-75.0 [facility] Comment on above: Performed By: #### C BC #### [facility] [address] [address] [address] Nette Rios Platelet mean volume (Bld) [Entitic vol] 10.7 fL Normal 9.5-13.5 [facility] Comment on above: Performed By: #### C BC #### [facility] [address] [address] [address] Nette Rios PLT 279 103/ul Normal 150-450 [facility] Comment on above: Performed By: #### C BC #### [facility] [address] [address] [address] Nette Rios RBC 4.57 106/ul Normal 4.20-5.40 [facility] Comment on above: Performed By: #### C BC #### [facility] [address] [address] [address] Nette Rios WBC 5.7 103/ul Normal 4.0-11.0 [facility] Comment on above: Performed By: #### C BC #### [facility] [address] [place] [address] Dr. Nette Rios CRPon 12-17-2022 CRP [Mass/Vol] mg/L Normal <=1.[address] [facility] Comment on above: Performed By: #### T SH, BNP, T7, CRP, CMP ####[facility] [address] [address]Dr. Nette Rios FREE THYROXINE INDEX T7on FTI 2.85 Normal 1.30-4.50 [facility] Comment on above: Performed By: #### T SH, BNP, T7, CRP, CMP ####[facility] [address] [address] Nette Rios T3U 31.0 % Normal 30.0-39.0 [facility] Comment on above: Performed By: #### T SH, BNP, T7, CRP, CMP ####[facility] [address] [address]DrNica Rios T4 [Mass/Vol] 9.20 ug/dL Normal 4.80-13.90 [facility] Comment on above: Performed By: #### T SH, BNP, T7, CRP, CMP ####[facility] [address] [address]DrNica Rios GLYCOHEMOGLOBIN A1Con 2022 ADA RECOMMENDATION SEE BELOW Normal [facility] Comment on above: Result Comment: ADA RECOMMENDED LIMIT 4.0 - 6.0 ADA THERAPEUTIC TARGET < 7.0 ACTION SUGGESTED > 7.0 Performed By: #### A 1C ####[facility] [address] [address]Dr. Nette Rios Glucose [Mass/Vol] 97 mg/dL Normal [facility] Comment on above: Performed By: #### A 1C ####[facility] [address] [place], [place] [address]DrNica Rios HbA1c (Bld) [Mass fraction] 5.0 % Normal 4.5-6.2 [facility] Comment on above: Performed By: #### A 1C ####[facility] [address] [address]Dr. Nette Rios IRONon 12-17-2022 Iron [Mass/Vol] 97.0 ug/dL Normal 50.0-170.[address] [facility] Comment on above: Performed By: #### V ITAD, IRON #### [facility] [address] [address] [address] Nette Rios PROF 14(COMP METB)on 023 Albumin [Mass/Vol] 4.0 g/dL Normal 3.4-5.0 [facility] Comment on above: Performed By: #### T SH, BNP, T7, CRP, CMP ####[facility] [address] [address]DrNica Rios Albumin/Globulin [Mass ratio] 1.1 {ratio} Normal [facility] Comment on above: Performed By: #### T SH, BNP, T7, CRP, CMP ####[facility] [address] [address]Dr. Nette Rios ALP [Catalytic activity/Vol] 74 U/L Normal 46-116 [facility] Comment on above: Performed By: #### T SH, BNP, T7, CRP, CMP ####[facility] [address] [address]Dr. Nette Rios ALT [Catalytic activity/Vol] 21 U/L Normal 14-59 [facility] Comment on above: Performed By: #### T SH, BNP, T7, CRP, CMP ####[facility] [address] [place], [place] [address]Dr. Nette Rios Anion gap [Moles/Vol] 9.9 mmol/L Normal [facility] Comment on above: Performed By: #### T SH, BNP, T7, CRP, CMP ####[facility] [address] [place], [place] [address]Dr. Nette Rios AST [Catalytic activity/Vol] 16 U/L Normal 15-37 [facility] Comment on above: Performed By: #### T SH, BNP, T7, CRP, CMP ####[facility] [address] [address]Dr. Nette Rios Bilirubin [Mass/Vol] 0.6 mg/dL Normal 0.2-1.0 [facility] Comment on above: Performed By: #### T SH, BNP, T7, CRP, CMP ####[facility] [address] [place], [place] [address]Dr. Nette Rios Calcium [Mass/Vol] 9.3 mg/dL Normal 8.5-10.1 [facility] Comment on above: Performed By: #### T SH, BNP, T7, CRP, CMP ####[facility] [address] [address]Dr. Nette Rios Chloride [Moles/Vol] 104 mmol/L Normal 98-107 [facility] Comment on above: Performed By: #### T SH, BNP, T7, CRP, CMP ####[facility] [address] [address]Dr. Nette Rios CO2 [Moles/Vol] 28.1 mmol/L Normal 21.0-32.0 [facility] Comment on above: Performed By: #### T SH, BNP, T7, CRP, CMP ####[facility] [address] [address]Dr. Nette Rios Creatinine [Mass/Vol] 0.69 mg/dL Normal 0.55-1.02 [facility] Comment on above: Performed By: #### T SH, BNP, T7, CRP, CMP ####[facility] [address] [address]Dr. Nette Rios EGFR-AF TAJIK >60 Normal >=60 [facility] Comment on above: Performed By: #### T SH, BNP, T7, CRP, CMP ####[facility] [address] [place], [place] [address]Dr. Nette Rios EGFR-NON AF TAJIK >60 Normal >=60 [facility] Comment on above: Performed By: #### T SH, BNP, T7, CRP, CMP ####[facility] [address] [place], [place] [address]Dr. Nette Rios Globulin (S) [Mass/Vol] 3.6 g/dL Normal [facility] Comment on above: Performed By: #### T SH, BNP, T7, CRP, CMP ####[facility] [address] [address]Dr. Nette Rios Glucose [Mass/Vol] 100 mg/dL Normal 74-106 [facility] Comment on above: Performed By: #### T SH, BNP, T7, CRP, CMP ####[facility] [address] [place], [place] [address]Dr. Nette Rios Potassium [Moles/Vol] 4.0 mmol/L Normal 3.5-5.1 [facility] Comment on above: Performed By: #### T SH, BNP, T7, CRP, CMP ####[facility] [address] [place], [place] [address]Dr. Nette Rios Protein [Mass/Vol] 7.6 g/dL Normal 6.4-8.2 [facility] Comment on above: Performed By: #### T SH, BNP, T7, CRP, CMP ####[facility] [address] [address] Nette Rios Sodium [Moles/Vol] 138 mmol/L Normal 136-145 [facility] Comment on above: Performed By: #### T SH, BNP, T7, CRP, CMP ####[facility] [address] [address]Dr. Nette Rios Urea nitrogen [Mass/Vol] 11.0 mg/dL Normal 7.0-18.0 [facility] Comment on above: Performed By: #### T SH, BNP, T7, CRP, CMP ####[facility] [address] [address]Dr. Nette Rios Urea nitrogen/Creatinine [Mass ratio] 15.9 mg/mg Normal [facility] Comment on above: Performed By: #### T SH, BNP, T7, CRP, CMP ####[facility] [address] [address]Dr. Nette Rios TSHon 12-17-2022 TSH 2.485 uIU/mL Normal 0.358-3.740 [facility] Comment on above: Performed By: #### T SH, BNP, T7, CRP, CMP ####[facility] [address] [address] Nette Rios VITAMIN D 25 OHon 12-17-2022 VIT D 25-OH 53.4 ng/mL Normal [facility] Comment on above: Performed By: #### V ITJEROD IRON #### [facility] [address] [place], [place] [address] Dr. Nette Rios VIT D RANGES SEE BELOW Normal [facility] Comment on above: Result Comment: <20 ng/mL Vit D deficient 20 - <30 ng/mL Vit D insufficient 30 - 100 ng/mL Vit D sufficient >100 ng/mL Potential Toxicity Performed By: #### V ITAD, IRON #### [facility] [address] [place] [address] Dr. Nette Rios Cov[facility]-19 [facility]on SARS-CoV-2 (COVID-19) RNA NERY+probe Ql (Unsp spec) Detected Critically abnormal NOT DETECTED [facility] Comment on above: Result Comment: This test is not yet approved or cleared by the [place] FDA. When there are no FDA-approved or cleared tests available, and other criteria are met, FDA can make tests available under an emergency access mechanism called an Emergency Use Authorization (EUA). The EUA for this test is supported by the [place] of Health and Human Service's (HHS's) declaration [...] used). Performed By: #### C VDTBH #### [facility] [address] [place] [address] Dr. Nette Rios INFLUENZA A AND B AGon 08-[facility] SEE BELOW Normal [facility] Comment on above: Result Comment: Nega tive for Flu A protein angiten. Infection due to Flu A cannot be ruled out. Flu A angiten in the sample may be below the detection limit of the test. Performed By: #### I NFLUAB #### [facility] [address] [place] [address] Dr. Nette Rios INFLUBNEGH SEE BELOW Normal [facility] Comment on above: Result Comment: Nega tive for Flu B protein antigen. Infection due to Flu B cannot be ruled out. Flu B antigen in the sample may be below the detection limit of the test. Performed By: #### I NFLUAB #### [facility] [address] [place] [address] Dr. Nette Rios INFLUENZA A AG Negative Normal NEGATIVE SEE COMMENT [facility] Comment on above: Performed By: #### I NFLUAB #### [facility] [address] [place], [place] [address] Dr. Nette Rios INFLUENZA B AG Negative Normal NEGATIVE SEE COMMENT [facility] Comment on above: Performed By: #### I NFLUAB #### [facility] [address] [place], [place] [address] Dr. Nette Rios MG MAMM SCREEN VERONICA W CADon 1 10-13-2021 MG MAMM SCREEN VERONICA W CAD Patient: BRIE ELDRIDGE Exam Date: 08/12/2022 : 1965 Gender:F Ordering : DR NANCY PLATA . Admission #: [id number] Family : Order #: [id number] CLICK HERE TO VIEW EXAM RADIOLOGY REPORT PROCEDURE: MAMMOGRAM BILATERAL SCREENING DIGITAL WITH COMPUTER AIDED DETECTION COMPARISON: MG MAMM SCREEN VERONICA W CAD, 07/04/2021. INDICATIONS: Screening mammography Calculator Name NCI Breast Cancer Risk Assessment Tool 5 Year Breast Cancer Risk 1.40% Lifetime Breast Cancer Risk 8.90% Personal Breast Cancer No Personal Ovarian Cancer No Treatments None Family Cancers None LOCATION: [facility] BREAST COMPOSITION: Scattered areas fibroglandular density. [...] PALPABLE LUMP SHOULD BE BIOPSIED. Dictated by: Ron Ortega MD on 08/13/2022 at 11:35 Approved by: Ron Ortega MD on 08/13/2022 at 11:36 Normal [facility] Encounters Encounter Date Encounter Type Care [...] Facility: Payers Date Payer Category Payer Unknown [id number] 2.16.84 [id number] 1965 Unknown [id number] 2.16.84 [id number] 1965 Unknown [id number] 2.16.84 [id number] 1965 Unknown [id number] 2.16.84 [id number] 1965 Unknown [id number] 2.16.84 [id number] 1958 Medicare [id number] Clinical Note 12-17-2022 Note Date & Type [...] IMPRESSION: No acute abnormality Electronically authenticated by: RON ORTEGA Date: 2022-12-17 09:58 [facility] Clinical Note 02-24-2022 Note Date & Type [...] Negative. IMPRESSION: Stable exam Electronically authenticated by: RON ORTEGA Date: 2022-02-24 16:38 [facility] Clinical Note 01-07-2022 Note Date & [...] by: DEZ JEWELL Date: 2022-01-07 11:16 [facility] Summary Purpose Family History No Family History Records Found Advance Directives No Advanced Directives Records Found Additional Source Comments INFORMATION SOURCE (unrecogn ized section and content) DATE CREATED AUTHOR 12/24/2022 [facility] FOR RECORDS PERTAINING TO PATIENTS WHO ARE [...] BE BASED ON THE PRIMARY CLINICAL RECORDS. [employer] [facility]. provides no warranty or guarantee of the accuracy or completeness of information in this document.
[2024-03-25 09:21] LABS: Alanine Aminotransferase 24 U/L (14-59); Albumin Globulin Ratio 1.5; Albumin Level 4.1 g/dL (3.4-5.0); Alkaline Phosphatase 60 U/L (46-116); Aspartate Amino Transferase 17 U/L (15-37); Bilirubin Direct 0.1 mg/dL (0.0-0.2); Bilirubin Total 0.7 mg/dL (0.2-1.0); Chol HDL Ratio 3.1; Cholesterol 247 mg/dL (<=200); Globulin 2.8 g/dL; HDL Cholesterol 79 mg/dL (40-60); Total Protein 6.9 g/dL (6.4-8.2); Triglycerides 95 mg/dL (<=150)
== END 2024-03-25 07:38 | disposition home or self-care (01) ==
LOC: LAB 07:39
PROVIDERS: PCP Family Medicine; Visit Provider Family Medicine
DX: E78.5 Hyperlipidemia, unspecified (principal)
CPT/HCPCS: 36415; 80061; 80076

== ENCOUNTER 2024-03-29 09:56 | Outpatient (OUT) | payer MEDICARE, SELFPAY ==
--- NOTE | 2024-03-29 10:06 | US_ITS ---
The [address] [address] Patient Name: BRIE ELDRIDGE MRN: [id number] date: 1965 Sex: F Assigned Patient Location: US Current Patient Location: US Accession/Order Number: [id number] Exam Date: 03/29/2024 10:07 Report Date: 03/30/2024 13:55 At the request of: NANCY PLATA Procedure: US extremity nonvascular RT EXAM: US extremity nonvascular RT HISTORY: Arm Mass R22.31 COMPARISON: None. TECHNIQUE: Grayscale and color Doppler imaging was used to evaluate the right upper arm. FINDINGS: There is a 2.6 x 2.5 x 1.2 cm echogenic mass at the area of interest. This most likely represents a probable lipoma. No fluid collections demonstrated. 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 No significant vascularity. Electronically authenticated by: Neetu ALMEIDA Date: 03/30/2024 13:55
--- OUTSIDE RECORDS SUMMARY | 2024-03-29 10:15 | XMS_ITS | CCD ---
Author Organization [facility] Care Team Providers Care Faculty I On Call Medical Assistant Name Role Phone BONI Yousif, DR CRUZ [...] B (Bld) [Mass/Vol] 87.0 pg/mL Normal <=900.0 [facility] Comment on above: Performed By: #### T SH, BNP, T7, CRP, CMP #### [facility] [address] [address] [address] Nette Rios CBC AUTO DIFFon 12-17-2022 BASO # 0.1 103/ul Normal 0.0-0.1 [facility] Comment on above: Performed By: #### C BC #### [facility] [address] [address] [address] Nette Rios Basophils/100 WBC (Bld) 1.2 % Normal 0.2-2.0 [facility] Comment on above: Performed By: #### C BC #### [facility] [address] [place] [address] Dr. Nette Rios EO # 0.3 103/ul Normal 0.0-0.7 [facility] Comment on above: Performed By: #### C BC #### [facility] [address] [place] [address] Dr. Nette Rios Eosinophils/100 WBC (Bld) 5.8 % Normal 0.9-7.0 [facility] Comment on above: Performed By: #### C BC #### [facility] [address] [place] [address] Dr. Nette Rios Erythrocyte distribution width (RBC) [Ratio] 12.6 % Normal 11.0-15.0 [facility] Comment on above: Performed By: #### C BC #### [facility] [address] [place] [address] Dr. Nette Rios Hematocrit (Bld) [Volume fraction] 42.6 % Normal 36.0-48.0 [facility] Comment on above: Performed By: #### C BC #### [facility] [address] [place] [address] Dr. Nette Rios Hemoglobin (Bld) [Mass/Vol] 14.0 g/dL Normal 12.0-16.0 [facility] Comment on above: Performed By: #### C BC #### [facility] [address] [place] [address] Dr. Nette Rios IG # 0.01 10e3/ul Normal 0.00-0.03 [facility] Comment on above: Performed By: #### C BC #### [facility] [address] [place] [address] Dr. Nette Rios IG % 0.2 % Normal 0.0-0.5 [facility] Comment on above: Performed By: #### C BC #### [facility] [address] [place] [address] Dr. Nette Rios LYMPH # 2.7 103/ul Normal 1.2-3.8 [facility] Comment on above: Performed By: #### C BC #### [facility] [address] [place] [address] Dr. Nette Rios Lymphocytes/100 WBC (Bld) 48.0 % Normal 20.5-60.0 [facility] Comment on above: Performed By: #### C BC #### [facility] [address] [place] [address] Dr. Nette Rios MANUAL DIFF REQ NO Normal [facility] Comment on above: Performed By: #### C BC #### [facility] [address] [place] [address] Dr. Nette Rios MCH (RBC) [Entitic mass] 30.6 pg Normal 26.7-34.0 [facility] Comment on above: Performed By: #### C BC #### [facility] [address] [place] [address] Dr. Nette Rios MCHC (RBC) [Mass/Vol] 32.9 g/dL Normal 29.9-35.2 [facility] Comment on above: Performed By: #### C BC #### [facility] [address] [place] [address] Dr. Nette Rios MCV (RBC) [Entitic vol] 93.2 fL Normal 81.0-99.0 [facility] Comment on above: Performed By: #### C BC #### [facility] [address] [place] [address] Dr. Nette Rios MONO # 0.4 103/ul Normal 0.3-0.8 [facility] Comment on above: Performed By: #### C BC #### [facility] [address] [place] [address] Dr. Nette Rios Monocytes/100 WBC (Bld) 7.4 % Normal 1.7-12.0 [facility] Comment on above: Performed By: #### C BC #### [facility] [address] [place] [address] Dr. Nette Rios NEUT # 2.1 103/ul Normal 1.4-6.5 [facility] Comment on above: Performed By: #### C BC #### [facility] [address] [address] [address] Nette Rios Neutrophils/100 WBC (Bld) 37.4 % Critically low 43.0-75.0 [facility] Comment on above: Performed By: #### C BC #### [facility] [address] [address] [address] Nette Rios Platelet mean volume (Bld) [Entitic vol] 10.7 fL Normal 9.5-13.5 [facility] Comment on above: Performed By: #### C BC #### [facility] [address] [address] [address] Nette Rios PLT 279 103/ul Normal 150-450 [facility] Comment on above: Performed By: #### C BC #### [facility] [address] [address] [address] Nette Rios RBC 4.57 106/ul Normal 4.20-5.40 [facility] Comment on above: Performed By: #### C BC #### [facility] [address] [address] [address] Nette Rios WBC 5.7 103/ul Normal 4.0-11.0 [facility] Comment on above: Performed By: #### C BC #### [facility] [address] [place] [address] Dr. Nette Rios CRPon 12-17-2022 CRP [Mass/Vol] mg/L Normal <=1.0 [facility] Comment on above: Performed By: #### T SH, BNP, T7, CRP, CMP ####[facility] [address] [address]Dr. Nette Rios FREE THYROXINE INDEX T7on FTI 2.85 Normal 1.30-4.50 [facility] Comment on above: Performed By: #### T SH, BNP, T7, CRP, CMP ####[facility] [address] [id number]. Nette Rios T3U 31.0 % Normal 30.0-39.0 [facility] Comment on above: Performed By: #### T SH, BNP, T7, CRP, CMP ####[facility] [address] [address]DrNica Rios T4 [Mass/Vol] 9.20 ug/dL Normal 4.80-13.90 [facility] Comment on above: Performed By: #### T SH, BNP, T7, CRP, CMP ####[facility] [address] [address]DrNica Rios GLYCOHEMOGLOBIN A1Con 2022 ADA RECOMMENDATION SEE BELOW Normal [facility] Comment on above: Result Comment: ADA RECOMMENDED LIMIT 4.0 - 6.0 ADA THERAPEUTIC TARGET < 7.0 ACTION SUGGESTED > 7.0 Performed By: #### A 1C ####[facility] [address] [address]Dr. Nette Rios Glucose [Mass/Vol] 97 mg/dL Normal [facility] Comment on above: Performed By: #### A 1C ####[facility] [address] [place], [place] [address]DrNica Rios HbA1c (Bld) [Mass fraction] 5.0 % Normal 4.5-6.2 [facility] Comment on above: Performed By: #### A 1C ####[facility] [address] [address]Dr. Nette Rios IRONon 12-17-2022 Iron [Mass/Vol] 97.0 ug/dL Normal 50.0-170.0 [facility] Comment on above: Performed By: #### V ITAD, IRON #### [facility] [address] [address] [address] Nette Rios PROF 14(COMP METB)on 023 Albumin [Mass/Vol] 4.0 g/dL Normal 3.4-5.0 [facility] Comment on above: Performed By: #### T SH, BNP, T7, CRP, CMP ####[facility] [address] [address]DrNica Rios Albumin/Globulin [Mass ratio] 1.1 {ratio} Normal [facility] Comment on above: Performed By: #### T SH, BNP, T7, CRP, CMP ####[facility] [address] [address]Dr. Nette Rios ALP [Catalytic activity/Vol] 74 U/L Normal 46-116 [facility] Comment on above: Performed By: #### T SH, BNP, T7, CRP, CMP ####[facility] [address] [address]Dr. Nette Rios ALT [Catalytic activity/Vol] 21 U/L Normal 14-59 [facility] Comment on above: Performed By: #### T SH, BNP, T7, CRP, CMP ####[facility] [address] [place], [place] [address]Dr. Nette Rios Anion gap [Moles/Vol] 9.9 mmol/L Normal [facility] Comment on above: Performed By: #### T SH, BNP, T7, CRP, CMP ####[facility] [address] [place], [place] [address]Dr. Nette Rios AST [Catalytic activity/Vol] 16 U/L Normal 15-37 [facility] Comment on above: Performed By: #### T SH, BNP, T7, CRP, CMP ####[facility] [address] [address]Dr. Nette Rios Bilirubin [Mass/Vol] 0.6 mg/dL Normal 0.2-1.0 [facility] Comment on above: Performed By: #### T SH, BNP, T7, CRP, CMP ####[facility] [address] [place], [place] [address]Dr. Nette Rios Calcium [Mass/Vol] 9.3 mg/dL Normal 8.5-10.1 [facility] Comment on above: Performed By: #### T SH, BNP, T7, CRP, CMP ####[facility] [address] [address]Dr. Nette Rios Chloride [Moles/Vol] 104 mmol/L Normal 98-107 [facility] Comment on above: Performed By: #### T SH, BNP, T7, CRP, CMP ####[facility] [address] [address]Dr. Nette Rios CO2 [Moles/Vol] 28.1 mmol/L Normal 21.0-32.0 [facility] Comment on above: Performed By: #### T SH, BNP, T7, CRP, CMP ####[facility] [address] [address]Dr. Nette Rios Creatinine [Mass/Vol] 0.69 mg/dL Normal 0.55-1.02 [facility] Comment on above: Performed By: #### T SH, BNP, T7, CRP, CMP ####[facility] [address] [address]Dr. Nette Rios EGFR-AF CENTRAL AFRICAN >60 Normal >=60 [facility] Comment on above: Performed By: #### T SH, BNP, T7, CRP, CMP ####[facility] [address] [place], [place] [address]Dr. Nette Rios EGFR-NON AF CENTRAL AFRICAN >60 Normal >=60 [facility] Comment on above: Performed By: #### T SH, BNP, T7, CRP, CMP ####[facility] [address] [place], [place] [address]Dr. Nette Rios Globulin (S) [Mass/Vol] 3.6 g/dL Normal [facility] Comment on above: Performed By: #### T SH, BNP, T7, CRP, CMP ####[facility] [address] [address]Dr. Nette Rios Glucose [Mass/Vol] 100 mg/dL Normal 74-106 [facility] Comment on above: Performed By: #### T SH, BNP, T7, CRP, CMP ####[facility] [address] [place], [place] [address]Dr. Nette Rios Potassium [Moles/Vol] 4.0 mmol/L Normal 3.5-5.1 [facility] Comment on above: Performed By: #### T SH, BNP, T7, CRP, CMP ####[facility] [address] [place], [place] [address]Dr. Nette Rios Protein [Mass/Vol] 7.6 g/dL Normal 6.4-8.2 [facility] Comment on above: Performed By: #### T SH, BNP, T7, CRP, CMP ####[facility] [address] [id number] Nette Rios Sodium [Moles/Vol] 138 mmol/L Normal 136-145 [facility] Comment on above: Performed By: #### T SH, BNP, T7, CRP, CMP ####[facility] [address] [address]Dr. Nette Rios Urea nitrogen [Mass/Vol] 11.0 mg/dL Normal 7.0-18.0 [facility] Comment on above: Performed By: #### T SH, BNP, T7, CRP, CMP ####[facility] [address] [address]Dr. Nette Rios Urea nitrogen/Creatinine [Mass ratio] 15.9 mg/mg Normal [facility] Comment on above: Performed By: #### T SH, BNP, T7, CRP, CMP ####[facility] [address] [address]Dr. Nette Rios TSHon 12-17-2022 TSH 2.485 uIU/mL Normal 0.358-3.740 [facility] Comment on above: Performed By: #### T SH, BNP, T7, CRP, CMP ####[facility] [address] [id number]. Nette Rios VITAMIN D 25 OHon 12-17-2022 VIT D 25-OH 53.4 ng/mL Normal [facility] Comment on above: Performed By: #### V ITJEROD IRON #### [facility] [address] [place], [place] [address] Dr. Nette Rios VIT D RANGES SEE BELOW Normal [facility] Comment on above: Result Comment: <20 ng/mL Vit D deficient 20 - <30 ng/mL Vit D insufficient 30 - 100 ng/mL Vit D sufficient >100 ng/mL Potential Toxicity Performed By: #### V ITAD, IRON #### [facility] [address] [place] [address] Dr. Nette Rios [facility]on SARS-CoV-2 (COVID-19) RNA NERY+probe Ql (Unsp spec) Detected Critically abnormal NOT DETECTED [facility] Comment on above: Result Comment: This test is not yet approved or cleared by the [place] FDA. When there are no FDA-approved or cleared tests available, and other criteria are met, FDA can make tests available under an emergency access mechanism called an Emergency Use Authorization (EUA). The EUA for this test is supported by the [place] of Health and Human Service's (HHS's) declaration [...] used). Performed By: #### C VDTBH #### [facility] [address] [place] [address] Dr. Nette Rios INFLUENZA A AND B AGon 08-[address] [facility] SEE BELOW Normal [facility] Comment on above: Result Comment: Nega tive for Flu A protein angiten. Infection due to Flu A cannot be ruled out. Flu A angiten in the sample may be below the detection limit of the test. Performed By: #### I NFLUAB #### [facility] [address] [place] [address] Dr. Nette Rios INFLUBNEGH SEE BELOW Normal [facility] Comment on above: Result Comment: Nega tive for Flu B protein antigen. Infection due to Flu B cannot be ruled out. Flu B antigen in the sample may be below the detection limit of the test. Performed By: #### I NFLUAB #### [facility] [address] [place] [address] Dr. Nette Rios INFLUENZA A AG Negative Normal NEGATIVE SEE COMMENT [facility] Comment on above: Performed By: #### I NFLUAB #### [facility] [address] [place], [place] [address] Dr. Nette Rios INFLUENZA B AG Negative Normal NEGATIVE SEE COMMENT [facility] Comment on above: Performed By: #### I NFLUAB #### [facility] [address] [place], [place] [address] Dr. Nette Rios MG MAMM SCREEN EVRONICA W CADon 1 10-13-2021 MG MAMM SCREEN VERONICA W CAD Patient: BRIE ELDRIDGE Exam Date: 08/12/2022 : 1965 Gender:F Ordering : DR NANCY PLATA . Admission #: [id number] Family : Order #: [id number] CLICK HERE TO VIEW EXAM RADIOLOGY REPORT PROCEDURE: MAMMOGRAM BILATERAL SCREENING DIGITAL WITH COMPUTER AIDED DETECTION COMPARISON: MG MAMM SCREEN VERONICA W CAD, 07/04/2021. INDICATIONS: Screening mammography Calculator Name NCI Breast Cancer Risk Assessment Tool 5 Year Breast Cancer Risk 1.40% Lifetime Breast Cancer Risk 8.90% Personal Breast Cancer No Personal Ovarian Cancer No Treatments None Family Cancers None LOCATION: [facility] BREAST COMPOSITION: Scattered areas fibroglandular [...] MD on 08/13/2022 at 11:36 Normal [facility] Encounters Encounter Date Encounter Type [...] Facility: Payers Date Payer Category Payer Unknown [id number] 2.16.84 [id number] 1965 Unknown [id number] 2.16.84 [id number] 1965 Unknown [id number] 2.16.84 [id number] 1965 Unknown [id number] 2.16.84 [id number] 1965 Unknown [id number] 2.16.84 [id number] 1958 Medicare [id number] Clinical Note 12-17-2022 Note Date & Type [...] authenticated by: RON ORTEGA Date: 2022-12-17 09:58 [facility] Clinical Note 02-24-2022 Note Date & [...] Negative. IMPRESSION: Stable exam Electronically authenticated by: ORN ORTEGA Date: 2022-02-24 16:38 [facility] Clinical Note 01-07-2022 Note Date [...] by: DEZ JEWELL Date: 2022-01-07 11:16 [facility] Summary Purpose Family History No Family History Records Found Advance Directives No Advanced Directives Records Found Additional Source Comments INFORMATION SOURCE (unrecogn ized section and content) DATE CREATED AUTHOR 12/24/2022 [facility] FOR RECORDS PERTAINING TO PATIENTS WHO [...] BE BASED ON THE PRIMARY CLINICAL RECORDS. [facility]. provides no warranty or guarantee of the accuracy or completeness of information in this document.
== END 2024-03-29 09:57 | disposition home or self-care (01) ==
LOC: US 09:57
PROVIDERS: PCP Family Medicine; Visit Provider Family Medicine
DX: R22.31 Localized swelling, mass and lump, right upper limb (principal)
CPT/HCPCS: 76882

== ENCOUNTER 2024-04-20 12:24 | Day surgery (SDC) | payer MEDICARE, SELFPAY ==
--- NOTE | 2024-04-20 | FL_ITS ---
The [address] [address] Patient Name: BRIE ELDRIDGE MRN: [id number] date: 1965 Sex: F Assigned Patient Location: [place] Current Patient Location: Accession/Order Number: [id number] Exam Date: 04/20/2024 12:35 Report Date: 04/20/2024 16:54 At the request of: NANCY PLATA Procedure: FL guided needle placement EXAMINATION: FL shoulder inj RT, FL guided needle placement HISTORY: right shoulder pain FLUORO DOSE: (Cannot calculate) mGy Reference air kerma (Ka,r) COMPARISON: No relevant comparison available. TECHNIQUE: An arthrogram was performed under fluoroscopic guidance using non-ionic contrast material in the usual sterile manner after obtaining informed consent. Standard level fluoroscopic mode of operation utilized. FINDINGS: JOINT: Right shoulder NEEDLE: 25 gauge, 3.5 spinal needle. MEDICATION: 2 mL buffered 1% lidocaine for subcutaneous anesthesia. 2 mL Omnipaque-240 iodinated contrast to visualize the joint space. 40 mg Kenalog, 2 mL 0.5% bupivacaine, and 3 mL Omnipaque 240 injected into the joint space. TECHNIQUE: Anterior approach with prior localization of the femoral artery. A single stick was successful in gaining access to the joint space. CLINICAL: Improvement of joint pain post injection. COMPLICATIONS: None. OTHER: Negative. FL/FL guided needle placement IMPRESSION: 1. Successful right shoulder therapeutic injection. Electronically authenticated by: DEZ JEWELL Date: 04/20/2024 16:54
--- NOTE | 2024-04-20 | FL_ITS ---
The [address] [address] Patient Name: BRIE ELDIRDGE MRN: [id number] date: 1965 Sex: F Assigned Patient Location: [place] Current Patient Location: Accession/Order Number: [id number] Exam Date: 04/20/2024 12:35 Report Date: 04/20/2024 16:54 At the request of: NANCY PLATA Procedure: FL shoulder inj RT EXAMINATION: FL shoulder inj RT, FL guided needle placement HISTORY: right shoulder pain FLUORO DOSE: (Cannot calculate) mGy Reference air kerma (Ka,r) COMPARISON: No relevant comparison available. TECHNIQUE: An arthrogram was performed under fluoroscopic guidance using non-ionic contrast material in the usual sterile manner after obtaining informed consent. Standard level fluoroscopic mode of operation utilized. FINDINGS: JOINT: Right shoulder NEEDLE: 25 gauge, 3.5 spinal needle. MEDICATION: 2 mL buffered 1% lidocaine for subcutaneous anesthesia. 2 mL Omnipaque-240 iodinated contrast to visualize the joint space. 40 mg Kenalog, 2 mL 0.5% bupivacaine, and 3 mL Omnipaque 240 injected into the joint space. TECHNIQUE: Anterior approach with prior localization of the femoral artery. A single stick was successful in gaining access to the joint space. CLINICAL: Improvement of joint pain post injection. COMPLICATIONS: None. OTHER: Negative. FL/FL shoulder inj RT IMPRESSION: 1. Successful right shoulder therapeutic injection. Electronically authenticated by: DEZ JEWELL Date: 04/20/2024 16:54
[2024-04-20] MEDS: BUPIVACAINE HCL 0.5% PF 50 MG/10 ML VIAL 2 ML INJ (13:15)
[2024-04-20] MEDS: LIDOCAINE HCL 10 ML, SODIUM BICARBONATE 1 MEQ INJ (13:15)
[2024-04-20] MEDS: TRIAMCINOLONE ACETONIDE 40 MG/ML VIAL INJ (13:15)
--- NOTE | 2024-04-20 14:36 | SUR.PREOP ---
04/18/24 Instructed pt mom on procedure, date, time, and prep.
--- NOTE | 2024-04-20 14:56 | SUR.PREOP ---
Mom stayed with patient during entire time in department.
== END 2024-04-20 13:45 | disposition home or self-care (01) ==
LOC: FL 12:24
PROVIDERS: Radiology Diagnostic Radiology; PCP Family Medicine; Visit Provider Family Medicine
DX: M25.511 Pain in right shoulder (principal)
CPT/HCPCS: 20610; 77002; J0665; J3301; Q9966

== ENCOUNTER 2024-06-23 10:25 | Outpatient (RCR) | payer MEDICARE, SELFPAY | END 2024-07-08 14:23 | disposition home or self-care (01) | LOC: PT 10:25 | PROVIDERS: PCP Family Medicine; Visit Provider Family Medicine | DX: M25.50 Pain in unspecified joint (principal) | CPT/HCPCS: 97110; 97112; 97140; 97162; 97530 ==

== ENCOUNTER 2024-10-17 10:57 | Outpatient (OUT) | payer MEDICARE, SELFPAY ==
--- NOTE | 2024-10-17 11:00 | MM_ITS ---
Patient Name: BRIE ELDRIDGE MR#: [id number] : 1965 Exam Date: 10/17/2024 Ordering Doctor: DR Jack Robles . RADIOLOGY REPORT PROCEDURE: MM SCREENING MAMMO BI COMPARISON: MM SCREENING MAMMO BI, 08/13/2023. MG MAMM SCREEN VERONICA W CAD, 08/12/2022. MG MAMM SCREEN VERONICA W CAD, 07/04/2021. MG MAMM SCREEN VERONICA W CAD, 12/14/2012. INDICATIONS: Screening Calculator Name NCI Breast Cancer Risk Assessment Tool 5 Year Breast Cancer Risk 1.50% Lifetime Breast Cancer Risk 8.50% Personal Breast Cancer No Personal Ovarian Cancer No Treatments None Family Cancers None LOCATION: [facility] BREAST COMPOSITION: There are scattered areas of fibroglandular density. FINDINGS: DIAGNOSTIC CATEGORY 1--NEGATIVE. No evidence of the architectural distortion, worrisome masses or suspicious microcalcifications. RECOMMENDATIONS: ROUTINE MAMMOGRAM AND CLINICAL EVALUATION IN 12 MONTHS. PLEASE NOTE: A NORMAL MAMMOGRAM DOES NOT EXCLUDE THE POSSIBILITY OF BREAST CANCER. A CLINICALLY SUSPICIOUS PALPABLE LUMP SHOULD BE BIOPSIED. Dictated by: Ifeanyi Varner DO on 10/17/2024 at 12:18 Approved by: Ifeanyi Varner DO on 10/17/2024 at 12:20
--- OUTSIDE RECORDS SUMMARY | 2024-10-17 11:08 | XMS_ITS | CCD ---
Author Organization [facility] [place] [facility] Care Team Providers Care Weight Guesser Name Role Phone BONI Yousif, DR CRUZ Primary Care Unavailable FANTA, DR DEZ Lujan Consulting Unavailable NASIR OLIVAS Attending Unavailable NASIR OLIVAS Admitting Unavailable NASIR OLIVAS Consulting Unavailable BONI ., DR CRUZ Consulting Unavailable HOY ., DR RCUZ Primary Care Unavailable HOY ., DR CRUZ [...] DR RON De La Vega Consulting Unavailable BONI ., DR CRUZ Primary Care Unavailable RICCO COLE Attending Unavailable RICCO COLE Admitting Unavailable JORDAN, DR RON De La [place]ega Consulting Unavailable RICCO COLE Consulting Unavailable Miko PICKERING Attending Unavailable Nancy Plata Referring Unavailable Nancy Plata Primary Care Physician Allergies Allergy Classification Reported Allergen(s) Allergy Type Date of Onset Reaction(s) Facility (1 source) No Known Medication Allergies; Translations: [No Known Medication Allergies] Propensity to adverse reactions (disorder) [facility] Repository Medications Current Medications Medication Drug Class(es) Dates Sig (Normalized) Sig (Original) Multi Vitamins oral tablet (1 source) Start: 04-03-2024 take 1 tablet by mouth once daily Multi Vitamins oral tablet 1 tab(s), Oral, Daily, Refill(s) 0 Start Date: 04/03/24 Status: Ordered simvastatin 20 mg oral tablet (1 source) HMG-CoA Reductase Inhibitor Start: 04-03-2024 take 1 tablet by mouth once daily in the evening simvastatin 20 mg Tab 20 mg = 1 tab(s), Oral, qPM, Refills(s) 0 Start Date: 04/03/24 Status: Ordered Problems Active Problems Problem Classification Problem Date Documented Da te Episodic/Chronic Congestive heart failure; nonhypertensive (1 source) Unspecified diastolic (congestive) heart failure; Translations: [UNSPECIFIED DIASTOLIC HEART FAILURE] Onset: 12-23-2022 Chronic Deficiency and other anemia (1 source) Anemia, unspecified; Translations: [ANEMIA UNSPECIFIED] Onset: 12-23-2022 Episodic Diabetes mellitus without complication (1 source) Other abnormal glucose; Translations: [OTHER ABNORMAL GLUCOSE] Onset: 12-23-2022 Episodic Disorders of lipid metabolism (1 source) Hyperlipidemia 04-03-2024 Chronic Hemorrhoids (1 source) Hemorrhoids 04-03-2024 Episodic Hypertension with complications and secondary hypertension (1 source) Hypertensive heart disease with heart failure; Translations: [HTN HEART DISEASE W/HEART FAIL] Onset: 12-23-2022 Chronic Intracranial injury (1 source) Traumatic brain injury 04-03-2024 Episodic Nutritional deficiencies (1 source) Vitamin D deficiency, unspecified; Translations: [VITAMIN D DEFICIENCY UNSPECIFIED] Onset: 12-23-2022 Chronic Other acquired deformities (1 source) Scoliosis deformity of spine 04-03-2024 Chronic Other and unspecified benign neoplasm (1 source) Lipoma of skin and subcutaneous tissue of limb; Translations: [Benign lipomatous neoplasm of skin and subcutaneous tissue of right arm] Onset: 05-02-2024 Episodic Other and unspecified benign neoplasm (1 source) Benign lipomatous neoplasm of skin and/or subcutaneous tissue of right upper limb 05-02-2024 Episodic Other connective tissue disease (4 sources) Olecranon bursitis, left elbow; Translations: [OLECRANON BURSITIS LEFT ELBOW] Onset: 12-17-2022 Episodic Other ear and sense organ disorders (1 source) Hearing loss 04-03-2024 Chronic Other non-traumatic joint disorders (1 source) Pain of right shoulder joint; Translations: [Pain in right shoulder] Onset: 05-02-2024 Episodic Other non-traumatic joint disorders (1 source) Arthralgia of the pelvic region and thigh 04-03-2024 Episodic Unclassified (2 sources) CONTACT W/AND (SUSP) EXPOS COVID-; Translations: [CONTACT W/AND (SUSP) EXPOS COVID-19] Onset: 08-21-2022 Unclassified (1 source) COUGH, UNSPECIFIED; Translations: [COUGH, UNSPECIFIED] Onset: 08-21-2022 Unclassified (1 source) Pain of right shoulder region 05-02-2024 Viral infection (1 source) COVID-19; Translations: [COVID-19] [...] Test Name Value Interpretation Reference Range Facility Ambulatory Visit Summaryon 0 05-02-2024 Ambulatory Visit Summary Ambulatory Visit Summary BRIE ELDRIDGE :1965 Visit Date:05/02/2024 Ambulatory Visit Instructions Your Care Team Attending Physician - Miko PICKERING MD Primary Care Physician - Nancy Plata MD Referring Physician - Nancy Plata MD This Is Your Medications List Contact prescribing physician if questions or concerns multivitamin (Multi Vitamins oral tablet) simvastatin (simvastatin 20 mg Tab) Procedures Performed Amputation great toe, Arthroplasty of right knee. Discharge Vitals Heart Rate (Peripheral) 72 Respiratory Rate 16 Blood Pressure 116/72 Medications What How Much When Instructions Unchanged multivitamin (Multi Vitamins oral tablet) 1 Tablets By Mouth Every day Contact prescribing physician if questions or concerns Unchanged simvastatin (simvastatin 20 mg Tab) 1 Tablets By Mouth Once a day (in the evening) Contact prescribing physician if questions or concerns Allergies No Known Allergies No Known Medication Allergies Problems Ongoing - Any problem that you are currently receiving treatment for. Arthralgia of the pelvic region and thigh Hearing loss Hemorrhoids Hyperlipidemia Scoliosis deformity of spine Traumatic brain injury Patient Survey You may receive a survey via text or e-mail asking about your office visit. Please share your experience with us by completing your survey. We appreciate your feedback and thank you for choosing us for your care. Normal [facility] BNPon 12-17-2022 Natriuretic peptide B (Bld) [Mass/Vol] 87.0 pg/mL Normal <=900.0 [facility] Comment on above: Performed By: #### T SH, BNP, T7, CRP, CMP #### [facility] [address] [place] [address] Dr. Nette Rios CBC AUTO DIFFon 12-17-2022 BASO # 0.1 103/ul Normal 0.0-0.1 [facility] Comment on above: Performed By: #### C BC #### [facility] [address] [place] [address] Dr. Nette Rios Basophils/100 WBC (Bld) 1.2 % Normal 0.2-2.0 [facility] Comment on above: Performed By: #### C BC #### [facility] [address] [place] [address] Dr. Nette Rios EO # 0.3 103/ul Normal 0.0-0.7 [facility] Comment on above: Performed By: #### C BC #### [facility] [address] [place] [address] Dr. Nette Rios Eosinophils/100 WBC (Bld) 5.8 % Normal 0.9-7.0 [facility] Comment on above: Performed By: #### C BC #### [facility] [address] [place] [address] Dr. Nette Rios Erythrocyte distribution width (RBC) [Ratio] 12.6 % Normal 11.0-15.0 [facility] Comment on above: Performed By: #### C BC #### [facility] [address] [place] [address] Dr. Nette Rios Hematocrit (Bld) [Volume fraction] 42.6 % Normal 36.0-48.0 [facility] Comment on above: Performed By: #### C BC #### [facility] [address] [place] [address] Dr. Nette Rios Hemoglobin (Bld) [Mass/Vol] 14.0 g/dL Normal 12.0-16.0 [facility] Comment on above: Performed By: #### C BC #### [facility] [address] [place] [address] Dr. Nette Rios IG # 0.01 10e3/ul Normal 0.00-0.03 [facility] Comment on above: Performed By: #### C BC #### [facility] [address] [place] [address] Dr. Nette Rios IG % 0.2 % Normal 0.0-0.5 [facility] Comment on above: Performed By: #### C BC #### [facility] [address] [place] [address] Dr. Nette Rios LYMPH # 2.7 103/ul Normal 1.2-3.8 [facility] Comment on above: Performed By: #### C BC #### [facility] [address] [place] [address] Dr. Nette Rios Lymphocytes/100 WBC (Bld) 48.0 % Normal 20.5-60.0 [facility] Comment on above: Performed By: #### C BC #### [facility] [address] [place] [address] Dr. Nette Rios MANUAL DIFF REQ NO Normal [facility] Comment on above: Performed By: #### C BC #### [facility] [address] [place] [address] Dr. Nette Rios MCH (RBC) [Entitic mass] 30.6 pg Normal 26.7-34.0 [facility] Comment on above: Performed By: #### C BC #### [facility] [address] [place] [address] Dr. Nette Rios MCHC (RBC) [Mass/Vol] 32.9 g/dL Normal 29.9-35.2 [facility] Comment on above: Performed By: #### C BC #### [facility] [address] [address] [address] Nette Rios MCV (RBC) [Entitic vol] 93.2 fL Normal 81.0-99.0 [facility] Comment on above: Performed By: #### C BC #### [facility] [address] [address] [address] Nette Rios MONO # 0.4 103/ul Normal 0.3-0.8 [facility] Comment on above: Performed By: #### C BC #### [facility] [address] [place] [address] Dr. Nette Rios Monocytes/100 WBC (Bld) 7.4 % Normal 1.7-12.0 [facility] Comment on above: Performed By: #### C BC #### [facility] [address] [place] [address] Dr. Nette Rios NEUT # 2.1 103/ul Normal 1.4-6.5 [facility] Comment on above: Performed By: #### C BC #### [facility] [address] [place] [address] Dr. Nette Rios Neutrophils/100 WBC (Bld) 37.4 % Critically low 43.0-75.0 [facility] Comment on above: Performed By: #### C BC #### [facility] [address] [place] [address] Dr. Nette Rios Platelet mean volume (Bld) [Entitic vol] 10.7 fL Normal 9.5-13.5 [facility] Comment on above: Performed By: #### C BC #### [facility] [address] [place] [address] Dr. Nette Rios PLT 279 103/ul Normal 150-450 [facility] Comment on above: Performed By: #### C BC #### [facility] [address] [place] [address] Dr. Nette Rios RBC 4.57 106/ul Normal 4.20-5.40 [facility] Comment on above: Performed By: #### C BC #### [facility] [address] [address] [address] Nette Rios WBC 5.7 103/ul Normal 4.0-11.0 [facility] Comment on above: Performed By: #### C BC #### [facility] [address] [address] [address] Nette Rios CRPon 12-17-2022 CRP [Mass/Vol] mg/L Normal <=1.0 [facility] Comment on above: Performed By: #### T SH, BNP, T7, CRP, CMP ####[facility] [address] [address]Dr. Nette Rios FREE THYROXINE INDEX T7on FTI 2.85 Normal 1.30-4.50 [facility] Comment on above: Performed By: #### T SH, BNP, T7, CRP, CMP ####[facility] [address] [address]Dr. Nette iRos T3U 31.0 % Normal 30.0-39.0 [facility] Comment on above: Performed By: #### T SH, BNP, T7, CRP, CMP ####[facility] [address] [address]DrNica Rios T4 [Mass/Vol] 9.20 ug/dL Normal 4.80-13.90 [facility] Comment on above: Performed By: #### T SH, BNP, T7, CRP, CMP ####[facility] [address] [address]Dr. Nette Rios GLYCOHEMOGLOBIN A1Con 2022 ADA RECOMMENDATION SEE BELOW Normal [facility] Comment on above: Result Comment: ADA RECOMMENDED LIMIT 4.0 - 6.0 ADA THERAPEUTIC TARGET < 7.0 ACTION SUGGESTED > 7.0 Performed By: #### A 1C ####[facility] [address] [address]Dr. Nette Rios Glucose [Mass/Vol] 97 mg/dL Normal [facility] Comment on above: Performed By: #### A 1C ####[facility] [address] [address]Dr. Nette Rios HbA1c (Bld) [Mass fraction] 5.0 % Normal 4.5-6.2 [facility] Comment on above: Performed By: #### A 1C ####[facility] [address] [address]Dr. Nette Rios IRONon 12-17-2022 Iron [Mass/Vol] 97.0 ug/dL Normal 50.0-170.[address] [facility] Comment on above: Performed By: #### V ITAD, IRON #### [facility] [address] [address] [address] Nette Rios PROF 14(COMP METB)on 023 Albumin [Mass/Vol] 4.0 g/dL Normal 3.4-5.0 [facility] Comment on above: Performed By: #### T SH, BNP, T7, CRP, CMP ####[facility] [address] [address]Dr. Nette Rios Albumin/Globulin [Mass ratio] 1.1 {ratio} Normal [facility] Comment on above: Performed By: #### T SH, BNP, T7, CRP, CMP ####[facility] [address] [place], [place] [address]Dr. Nette Rios ALP [Catalytic activity/Vol] 74 U/L Normal 46-116 [facility] Comment on above: Performed By: #### T SH, BNP, T7, CRP, CMP ####[facility] [address] [address]Dr. Nette Rios ALT [Catalytic activity/Vol] 21 U/L Normal 14-59 [facility] Comment on above: Performed By: #### T SH, BNP, T7, CRP, CMP ####[facility] [address] [address]Dr. Nette Rios Anion gap [Moles/Vol] 9.9 mmol/L Normal [facility] Comment on above: Performed By: #### T SH, BNP, T7, CRP, CMP ####[facility] [address] [place], [place] [address]Dr. Nette Rios AST [Catalytic activity/Vol] 16 U/L Normal 15-37 [facility] Comment on above: Performed By: #### T SH, BNP, T7, CRP, CMP ####[facility] [address] [address]Dr. Nette Rios Bilirubin [Mass/Vol] 0.6 mg/dL Normal 0.2-1.0 [facility] Comment on above: Performed By: #### T SH, BNP, T7, CRP, CMP ####[facility] [address] [place], [place] [address]Dr. Nette Rios Calcium [Mass/Vol] 9.3 mg/dL Normal 8.5-10.1 [facility] Comment on above: Performed By: #### T SH, BNP, T7, CRP, CMP ####[facility] [address] [place], [place] [address]Dr. Nette Rios Chloride [Moles/Vol] 104 mmol/L Normal 98-107 [facility] Comment on above: Performed By: #### T SH, BNP, T7, CRP, CMP ####[facility] [address] [place], [place] [address]Dr. Nette Rios CO2 [Moles/Vol] 28.1 mmol/L Normal 21.0-32.0 [facility] Comment on above: Performed By: #### T SH, BNP, T7, CRP, CMP ####[facility] [address] [place], [place] [address]Dr. Nette Rios Creatinine [Mass/Vol] 0.69 mg/dL Normal 0.55-1.02 [facility] Comment on above: Performed By: #### T SH, BNP, T7, CRP, CMP ####[facility] [address] [place], [place] [address]Dr. Nette Rios EGFR-AF JAMAICAN >60 Normal >=60 [facility] Comment on above: Performed By: #### T SH, BNP, T7, CRP, CMP ####[facility] [address] [place], [place] [address]Dr. Nette Rios EGFR-NON AF JAMAICAN >60 Normal >=60 [facility] Comment on above: Performed By: #### T SH, BNP, T7, CRP, CMP ####[facility] [address] [address]Dr. Nette Rios Globulin (S) [Mass/Vol] 3.6 g/dL Normal [facility] Comment on above: Performed By: #### T SH, BNP, T7, CRP, CMP ####[facility] [address] [place], [place] [address]Dr. Mattielan Rios Glucose [Mass/Vol] 100 mg/dL Normal 74-106 [facility] Comment on above: Performed By: #### T SH, BNP, T7, CRP, CMP ####[facility] [address] [place], [place] [address]Dr. Nette Rios Potassium [Moles/Vol] 4.0 mmol/L Normal 3.5-5.1 [facility] Comment on above: Performed By: #### T SH, BNP, T7, CRP, CMP ####[facility] [address] [place], [place] [address]Dr. Mattielan Rios Protein [Mass/Vol] 7.6 g/dL Normal 6.4-8.2 [facility] Comment on above: Performed By: #### T SH, BNP, T7, CRP, CMP ####[facility] [address] [place], [place] [address]Dr. Mattielan Rios Sodium [Moles/Vol] 138 mmol/L Normal 136-145 [facility] Comment on above: Performed By: #### T SH, BNP, T7, CRP, CMP ####[facility] [address] [place], [place] [address]Dr. Mattielan Rios Urea nitrogen [Mass/Vol] 11.0 mg/dL Normal 7.0-18.0 [facility] Comment on above: Performed By: #### T SH, BNP, T7, CRP, CMP ####[facility] [address] [place], [place] [address]Dr. Nette Rios Urea nitrogen/Creatinine [Mass ratio] 15.9 mg/mg Normal [facility] Comment on above: Performed By: #### T SH, BNP, T7, CRP, CMP ####[facility] [address] [place], [place] [address]FcNica Rios TSHon 12-17-2022 TSH 2.485 uIU/mL Normal 0.358-3.740 [facility] Comment on above: Performed By: #### T SH, BNP, T7, CRP, CMP ####[facility] [address] [place], [place] [address]ClNica Rios VITAMIN D 25 OHon 12-17-2022 VIT D 25-OH 53.4 ng/mL Normal [facility] Comment on above: Performed By: #### V ZAIRA, IRON #### [facility] [address] [address] [address] Nette Rios VIT D RANGES SEE BELOW Normal [facility] Comment on above: Result Comment: <20 ng/mL Vit D deficient 20 - <30 ng/mL Vit D insufficient 30 - 100 ng/mL Vit D sufficient >100 ng/mL Potential Toxicity Performed By: #### V ITAD, IRON #### [facility] [address] [address] [address] Nette Rios [facility]on SARS-CoV-2 (COVID-19) RNA NERY+probe Ql (Unsp spec) Detected Critically abnormal NOT DETECTED [facility] Comment on above: Result Comment: This test is not yet approved or cleared by the [place] FDA. When there are no FDA-approved or cleared tests available, and other criteria are met, FDA can make tests available under an emergency access mechanism called an Emergency Use Authorization (EUA). The EUA for this test is supported by the [place] of Health and Human Service's (HHS's) declaration [...] used). Performed By: #### C VDTBH #### [facility] [address] [place] [address] Dr. Nette Rios INFLUENZA A AND B AGon 08-18 [facility] SEE BELOW Normal [facility] Comment on above: Result Comment: Nega tive for Flu A protein angiten. Infection due to Flu A cannot be ruled out. Flu A angiten in the sample may be below the detection limit of the test. Performed By: #### I NFLUAB #### [facility] [address] [place] [address] Dr. Nette Rios INFLUBNEG SEE BELOW Normal [facility] Comment on above: Result Comment: Nega tive for Flu B protein antigen. Infection due to Flu B cannot be ruled out. Flu B antigen in the sample may be below the detection limit of the test. Performed By: #### I NFLUAB #### [facility] [address] [place] [address] Dr. Nette Rios INFLUENZA A AG Negative Normal NEGATIVE SEE COMMENT [facility] Comment on above: Performed By: #### I NFLUAB #### [facility] [address] [place] [address] Dr. Nette Rios INFLUENZA B AG Negative Normal NEGATIVE SEE COMMENT [facility] Comment on above: Performed By: #### I NFLUAB #### [facility] [address] [place] [address] Dr. Nette Rios MG MAMM SCREEN VERONICA W CADon 1 10-13-2021 MG MAMM SCREEN VERONICA W CAD Patient: BRIE ELDRIDGE Exam Date: 08/12/2022 : 1965 Gender:F Ordering : DR NANCY PLATA . Admission #: [id number] Family : Order #: [id number] CLICK HERE TO VIEW EXAM RADIOLOGY REPORT PROCEDURE: MAMMOGRAM BILATERAL SCREENING DIGITAL WITH COMPUTER AIDED DETECTION COMPARISON: MG MAMM SCREEN VERONICA W CAD, 07/04/2021. INDICATIONS: Screening mammography Calculator Name NCI Breast Cancer Risk Assessment Tool 5 Year Breast Cancer Risk 1.40% Lifetime Breast Cancer Risk 8.90% Personal Breast Cancer No Personal Ovarian Cancer No Treatments None Family Cancers None LOCATION: [facility] BREAST COMPOSITION: Scattered areas fibroglandular density. [...] Ortega MD on 08/13/2022 at 11:36 Normal [facility] Vital Signs Date Time Vital Sign Value Performing Clinician Namitai phil 05-02-2024 13:32-0400 Blood Pressure Location Miko PICKERING [facility] 05-02-2024 13:32-0400 Diastolic blood pressure 72 mm[Hg] Miko PICKERING [facility] 05-02-2024 13:32-0400 Heart rate 72 /min Miko SHEPARDL [facility] 05-02-2024 13:32-0400 Respiratory rate 16 /min Miko SHEPARDL [facility] 05-02-2024 13:32-0400 Systolic blood pressure 116 mm[Hg] Miko SHEPARDL [facility] Encounters Encounter Date Encounter Type Care Provider Facility Start: 05-02-2024 End: 05-02-2024 ambulatory Miko PICKERING Facility:[facility] Start: 05-02-2024 End: 05-02-2024 Patient encounter procedure Miko PICKERING [facility] Start: 03-31-2024 ambulatory Miko PICKERING Facility:[facility] Start: 12-17-2022 End: 12-18-[address] NANCY PLATA . Facility: Start: 08-18-2022 End: 08-18-[address] NANCY PLATA . Facility: Start: 08-12-2022 End: 08-13-[address] NANCY PLATA . Facility:[facility] Start: 02-24-2022 End: 02-25-[address] NANCY PLATA . Facility:[facility] Start: 01-07-2022 End: 01-08-[address] NANCY PLATA . Facility: Procedures Date Procedure Procedure Detail Performing Clinician Amputation of hallux Miko LADAN Repair of joint of right knee Miko LADAN Immunizations Immunization Date Immunization Notes Care Provider Fa [facility] 07-03-2023 influenza virus vaccine, unspecified formulation Miko SHEPARDSelam [facility] Payers Date Payer Category Payer Medicare [id number] 1965 Unknown [id number] 2.16.84 [id number] 1965 Unknown [id number] 2.16.84 [id number] 1965 Unknown [id number] 2.16.84 [id number] 1965 Unknown [id number] 2.16.84 [id number] 1965 Unknown [id number] 2.16.84 [id number] 1965 Unknown [id number] 2.16.8 [id number] 1958 Medicare [id number] Social History Date Type Detail Facility Start: 05-02-2024 Tobacco smoking status Never s moked tobacco (finding) [facility] Tobacco smoking status Never [facility] Sex Assigned At Female [facility] Functional Status Date Assessment Result Facility 05-02-2024 Functional Status N/A [facility] Clinical Note 05-02-2024 Note Date & Type Note Facility 05-02-2024 Note General Surgery Offi ce/Clinic Note Chief Complaint consultation for right upper arm mass HPI Staff 59 year old female presents on consultation from Dr. Plata for lipoma. Reports noting mass to right posterior arm several weeks ago. Reports pain with activity. US completed 03/29 with probable lipoma. History of Present Illness 59 yo female with h/o traumatic brain injury, hearing loss, hyperlipidemia, scoliosis, referred for painful lipoma right posterior arm; patient had seen Dr Plata for right shoulder pain, according to patient's mother (patient nonverbal) felt small lump posterior right upper arm, US consistent with lipoma; patient had shoulder joint injection recently with resolution of pain; lump is smaller, not painful. Review of Systems PHQ Score Initial Depression Screen Score: 0 SCORE ROS - Provider Constitutional: no fever, no sweats, no weight loss. Eyes: no glasses, no blurred vision, no visual loss. ENMT: no dentures, no hoarseness, no swallowing difficulties, no hearing loss, no ear infection(s), no nose bleeds. Cardiovascular: normal blood pressure, no chest pain, regular heartbeat, no heart murmur. Respiratory: no shortness of breath, no cough, no asthma, no wheezing. Gastrointestinal: no nausea, no vomiting, no diarrhea, no constipation, no blood in stool, no change in bowel habits, no abdominal pain, no hepatitis. Genitourinary: no kidney stones, no urine infection, no dysuria. Musculoskeletal: no pain, no weakness. Skin: no changing moles, no rash, yes skin lumps. Neurologic: no seizures, no epilepsy, no headache. Psychiatric: no emotional or psychiatric problem. Heme/Lymph: no bleeding problems, no anemia, no blood clots, no transfusions. Allergy/Immunologic: no swollen lymph nodes/glands, no IV drug abuse. Other: Additional ROS info: Except as noted in the above Review of Systems and in the History of Present Illness, all other systems have been reviewed and are negative or noncontributory. Physical Exam Vitals & Measurements HR: 72(Peripheral) RR: 16 BP: 116/72 Skin: no rashes, no lesions, no ulcers, small superficial lipoma posterior right upper arm, nontender, no skin changes. . Tests: x-rays reviewed, review of old records completed , Assessment/Plan 1. Right shoulder pain (M25.511: Pain in right shoulder) resolved with shoulder injection 2. Benign lipomatous neoplasm of skin and subcutaneous tissue of right arm (D17.21: Benign lipomatous neoplasm of skin and subcutaneous tissue of right arm) small, asymptomatic; can observe for now, call with problems/questions. Follow-up No qualifying data available Problem List/Past Medical History Ongoing Arthralgia of the pelvic region and thigh Hearing loss Hemorrhoids Hyperlipidemia Lipoma of arm Right shoulder pain Scoliosis deformity of spine Traumatic brain injury Historical No qualifying data Procedure/Surgical History Amputation great toe, Arthroplasty of right knee. Medications Multi Vitamins oral tablet, 1 tab(s), Oral, Daily simvastatin 20 mg Tab, 20 mg= 1 tab(s), Oral, qPM Allergies No Known Allergies No Known Medication Allergies Social History Alcohol - Denies Alcohol Use, 05/02/2024 Substance Abuse - Denies Substance Abuse, 05/02/2024 Tobacco Never (less than 100 in lifetime) Tobacco Use:. Never Smokeless Tobacco Use:., 05/02/2024 Family History Heart disease: Mother and Father. Hypertension: Mother. Immunizations Vaccine Date Status influenza virus vaccine, inactivated 07/03/2023 Recorded [facility] Comment on above: Result Comment: Elec tronically Signed By: LADAN YOO, Miko Payan\Date and Time Signed: 05/02/24 16:21 EDT Clinical Note 12-17-2022 Note Date & Type [...] authenticated by: RON ORTEGA Date: 2022-12-17 09:58 [facility] Clinical Note 02-24-2022 Note Date & Type [...] authenticated by: RON ORTEGA Date: 2022-02-24 16:38 [facility] Clinical Note 01-07-2022 Note Date & Type [...] authenticated by: DEZ JEWELL Date: 2022-01-07 11:16 [facility] Evaluation + Plan note Note Date & Type Note Facility Evaluation + Plan note No data available for this section [facility] Hospital Discharge instructions Note Date & Type Note Facility Hospital Discharge instructions No data available for this section [facility] Progress note Note Date & Type Note Facility Progress note No data available for this section [facility] Summary Purpose Family History No Family History Records FoundNo Family History Records Found No data available for this section Advance Directives No Advanced Directives Records FoundNo Advanced Directives Records Found Additional Source Comments INFORMATION SOURCE (unrecogn ized section and content) DATE CREATED AUTHOR 12/24/2022 [facility] DATE CREATED AUTHOR AUTHOR'S ORGANIZ ATION 05/03/[address] [facility] Patient Care team informatio n (unrecognized section and content) Personnel Name: Nancy Plata MD Address: Address: [address] [place] [address] FOR RECORDS PERTAINING TO PATIENTS WHO ARE [...] BE BASED ON THE PRIMARY CLINICAL RECORDS. [facility] [employer] [facility]. provides no warranty or guarantee of the accuracy or completeness of information in this document.
== END 2024-10-17 10:58 | disposition home or self-care (01) ==
LOC: MAMMO 10:57
PROVIDERS: PCP Family Medicine; Visit Provider Family Medicine
DX: Z12.31 Encounter for screening mammogram for malignant neoplasm of breast (principal)
CPT/HCPCS: 77067

== ENCOUNTER 2025-05-04 08:43 | Outpatient (OUT) | payer MEDICARE, SELFPAY ==
--- OUTSIDE RECORDS SUMMARY | 2025-05-03 13:53 | XMS_ITS | CCD ---
Author Organization [facility] Care Team Providers Care Environmental Web Crawler Name Role Phone BONI Yousif, DR CRUZ Primary Care Unavailable FANTA, DR DEZ Lujan Consulting Unavailable NASIR OLIVAS Attending Unavailable NASIR OLIVAS Admitting Unavailable NASIR OLIVAS Consulting Unavailable MATHEWY ., DR CRUZ Consulting Unavailable HOY ., [...] Referring Unavailable Nancy Plata Primary Care Physician [phone] Allergies Allergy Classification Reported Allergen(s) Allergy Type Date of Onset Reaction(s) Facility (1 source) No Known Medication Allergies; Translations: [No Known Medication Allergies] Propensity to adverse reactions (disorder) [facility] Repository Medications Current Medications Medication Drug [...] Results Test Name Value Interpretation Reference Range [facility] 04-05-2025 CNCO Letter Text Normal [facility] Ambulatory Visit Summaryon 0 05-02-2024 Ambulatory Visit Summary Ambulatory Visit Summary BRIE ELDRIDGE :1965 Visit Date:05/02/2024 Ambulatory Visit Instructions Your Care Team Attending Physician - LADAN YOO, Miko Lujan Primary Care Physician - Nancy Plata MD [...] for choosing us for your care. Normal [facility] BNPon 12-17-2022 Natriuretic peptide B (Bld) [Mass/Vol] 87.0 pg/mL Normal <=900.0 [facility] Comment on above: Performed By: #### T SH, BNP, T7, CRP, CMP #### [facility] [address] [place] [address] Dr. Nette Rios CBC AUTO DIFFon 12-17-2022 BASO # 0.1 103/ul Normal 0.0-0.1 [facility] Comment on above: Performed By: #### C BC #### [facility] [address] [place] [address] Dr. Nette Rios Basophils/100 WBC (Bld) 1.2 % Normal 0.2-2.0 [facility] Comment on above: Performed By: #### C BC #### [facility] [address] [place] [address] Dr. Nette Rios EO # 0.3 103/ul Normal 0.0-0.7 [facility] Comment on above: Performed By: #### C BC #### [facility] [address] [place] [address] Dr. Nette Rios Eosinophils/100 WBC (Bld) 5.8 % Normal 0.9-7.0 [facility] Comment on above: Performed By: #### C BC #### [facility] [address] [place] [address] Dr. Nette Rios Erythrocyte distribution width (RBC) [Ratio] 12.6 % Normal 11.0-15.0 [facility] Comment on above: Performed By: #### C BC #### [facility] [address] [place] [address] Dr. Nette Rios Hematocrit (Bld) [Volume fraction] 42.6 % Normal 36.0-48.0 [facility] Comment on above: Performed By: #### C BC #### [facility] [address] [place] [address] Dr. Nette Rios Hemoglobin (Bld) [Mass/Vol] 14.0 g/dL Normal 12.0-16.0 [facility] Comment on above: Performed By: #### C BC #### [facility] [address] [place] [address] Dr. Nette Rios IG # 0.01 10e3/ul Normal 0.00-0.03 [facility] Comment on above: Performed By: #### C BC #### [facility] [address] [place] [address] Dr. Nette Rios IG % 0.2 % Normal 0.0-0.5 [facility] Comment on above: Performed By: #### C BC #### [facility] [address] [place] [address] Dr. Nette Rios LYMPH # 2.7 103/ul Normal 1.2-3.8 [facility] Comment on above: Performed By: #### C BC #### [facility] [address] [place] [address] Dr. Nette Rios Lymphocytes/100 WBC (Bld) 48.0 % Normal 20.5-60.0 [facility] Comment on above: Performed By: #### C BC #### [facility] [address] [place] [address] Dr. Nette Rios MANUAL DIFF REQ NO Normal [facility] Comment on above: Performed By: #### C BC #### [facility] [address] [place] [address] Dr. Nette Rios MCH (RBC) [Entitic mass] 30.6 pg Normal 26.7-34.0 [facility] Comment on above: Performed By: #### C BC #### [facility] [address] [place] [address] Dr. Nette Rios MCHC (RBC) [Mass/Vol] 32.9 g/dL Normal 29.9-35.2 [facility] Comment on above: Performed By: #### C BC #### [facility] [address] [place] [address] Dr. Nette Rios MCV (RBC) [Entitic vol] 93.2 fL Normal 81.0-99.0 [facility] Comment on above: Performed By: #### C BC #### [facility] [address] [place] [address] Dr. Nette Rios MONO # 0.4 103/ul Normal 0.3-0.8 [facility] Comment on above: Performed By: #### C BC #### [facility] [address] [place] [address] Dr. Nette Rios Monocytes/100 WBC (Bld) 7.4 % Normal 1.7-12.0 [facility] Comment on above: Performed By: #### C BC #### [facility] [address] [place] [address] Dr. Nette Rios NEUT # 2.1 103/ul Normal 1.4-6.5 [facility] Comment on above: Performed By: #### C BC #### [facility] [address] [place] [address] Dr. Nette Rios Neutrophils/100 WBC (Bld) 37.4 % Critically low 43.0-75.0 [facility] Comment on above: Performed By: #### C BC #### [facility] [address] [place] [address] Dr. Nette Rios Platelet mean volume (Bld) [Entitic vol] 10.7 fL Normal 9.5-13.5 [facility] Comment on above: Performed By: #### C BC #### [facility] [address] [place] [address] Dr. Nette Rios PLT 279 103/ul Normal 150-450 [facility] Comment on above: Performed By: #### C BC #### [facility] [address] [place] [address] Dr. Nette Rios RBC 4.57 106/ul Normal 4.20-5.40 [facility] Comment on above: Performed By: #### C BC #### [facility] [address] [address] [address] Nette Rios WBC 5.7 103/ul Normal 4.0-11.0 [facility] Comment on above: Performed By: #### C BC #### [facility] [address] [address] [address] Nette Rios CRPon 12-17-2022 CRP [Mass/Vol] mg/L Normal <=1.0 [facility] Comment on above: Performed By: #### T SH, BNP, T7, CRP, CMP ####[facility] [address] [place] [address]Dr. Nette Rios FREE THYROXINE INDEX T7on FTI 2.85 Normal 1.30-4.50 [facility] Comment on above: Performed By: #### T SH, BNP, T7, CRP, CMP ####[facility] [address] [place] [address]Dr. Nette Rios T3U 31.0 % Normal 30.0-39.0 [facility] Comment on above: Performed By: #### T SH, BNP, T7, CRP, CMP ####[facility] [address] [address]DrNica Rios T4 [Mass/Vol] 9.20 ug/dL Normal 4.80-13.90 [facility] Comment on above: Performed By: #### T SH, BNP, T7, CRP, CMP ####[facility] [address] [address]Dr. Nette Rios GLYCOHEMOGLOBIN A1Con 2022 ADA RECOMMENDATION SEE BELOW Normal [facility] Comment on above: Result Comment: ADA RECOMMENDED LIMIT 4.0 - 6.0 ADA THERAPEUTIC TARGET < 7.0 ACTION SUGGESTED > 7.0 Performed By: #### A 1C ####[facility] [address] [place] [address]Dr. Nette Rios Glucose [Mass/Vol] 97 mg/dL Normal [facility] Comment on above: Performed By: #### A 1C ####[facility] [address] [address]Dr. Nette Rios HbA1c (Bld) [Mass fraction] 5.0 % Normal 4.5-6.2 [facility] Comment on above: Performed By: #### A 1C ####[facility] [address] [place] [address]Dr. Nette Rios IRONon 12-17-2022 Iron [Mass/Vol] 97.0 ug/dL Normal 50.0-170.0 [facility] Comment on above: Performed By: #### V ITAD, IRON #### [facility] [address] [address] [address] Nette Rios PROF 14(COMP METB)on 023 Albumin [Mass/Vol] 4.0 g/dL Normal 3.4-5.0 [facility] Comment on above: Performed By: #### T SH, BNP, T7, CRP, CMP ####[facility] [address] [place] [address]Dr. Nette Rios Albumin/Globulin [Mass ratio] 1.1 {ratio} Normal [facility] Comment on above: Performed By: #### T SH, BNP, T7, CRP, CMP ####[facility] [address] [place] [address]Dr. Nette Rios ALP [Catalytic activity/Vol] 74 U/L Normal 46-116 [facility] Comment on above: Performed By: #### T SH, BNP, T7, CRP, CMP ####[facility] [address] [address]Dr. Nette Rios ALT [Catalytic activity/Vol] 21 U/L Normal 14-59 [facility] Comment on above: Performed By: #### T SH, BNP, T7, CRP, CMP ####[facility] [address] [address]Dr. Nette Rios Anion gap [Moles/Vol] 9.9 mmol/L Normal [facility] Comment on above: Performed By: #### T SH, BNP, T7, CRP, CMP ####[facility] [address] [place] [address]Dr. Nette Rios AST [Catalytic activity/Vol] 16 U/L Normal 15-37 [facility] Comment on above: Performed By: #### T SH, BNP, T7, CRP, CMP ####[facility] [address] [place] [address]Dr. Nette Rios Bilirubin [Mass/Vol] 0.6 mg/dL Normal 0.2-1.0 [facility] Comment on above: Performed By: #### T SH, BNP, T7, CRP, CMP ####[facility] [address] [place] [address]Dr. Nette Rios Calcium [Mass/Vol] 9.3 mg/dL Normal 8.5-10.1 [facility] Comment on above: Performed By: #### T SH, BNP, T7, CRP, CMP ####[facility] [address] [place] [address]Dr. Nette Rios Chloride [Moles/Vol] 104 mmol/L Normal 98-107 [facility] Comment on above: Performed By: #### T SH, BNP, T7, CRP, CMP ####[facility] [address] [place], [place] [address]Dr. Nette Rios CO2 [Moles/Vol] 28.1 mmol/L Normal 21.0-32.0 [facility] Comment on above: Performed By: #### T SH, BNP, T7, CRP, CMP ####[facility] [address] [place], [place] [address]Dr. Nette Rios Creatinine [Mass/Vol] 0.69 mg/dL Normal 0.55-1.02 [facility] Comment on above: Performed By: #### T SH, BNP, T7, CRP, CMP ####[facility] [address] [place], [place] [address]Dr. Nette Rios EGFR-AF UKRAINIAN >60 Normal >=60 [facility] Comment on above: Performed By: #### T SH, BNP, T7, CRP, CMP ####[facility] [address] [place], [place] [address]Dr. Nette Rios EGFR-NON AF UKRAINIAN >60 Normal >=60 [facility] Comment on above: Performed By: #### T SH, BNP, T7, CRP, CMP ####[facility] [address] [place] [address]Dr. Nette Rios Globulin (S) [Mass/Vol] 3.6 g/dL Normal [facility] Comment on above: Performed By: #### T SH, BNP, T7, CRP, CMP ####[facility] [address] [address]Dr. Nette Rios Glucose [Mass/Vol] 100 mg/dL Normal 74-106 [facility] Comment on above: Performed By: #### T SH, BNP, T7, CRP, CMP ####[facility] [address] [address]Dr. Nette Rios Potassium [Moles/Vol] 4.0 mmol/L Normal 3.5-5.1 [facility] Comment on above: Performed By: #### T SH, BNP, T7, CRP, CMP ####[facility] [address] [place] [address]Dr. Nette Rios Protein [Mass/Vol] 7.6 g/dL Normal 6.4-8.2 [facility] Comment on above: Performed By: #### T SH, BNP, T7, CRP, CMP ####[facility] [address] [address]Dr. Nette Rios Sodium [Moles/Vol] 138 mmol/L Normal 136-145 [facility] Comment on above: Performed By: #### T SH, BNP, T7, CRP, CMP ####[facility] [address] [place] [address]Dr. Nette Rios Urea nitrogen [Mass/Vol] 11.0 mg/dL Normal 7.0-18.0 [facility] Comment on above: Performed By: #### T SH, BNP, T7, CRP, CMP ####[facility] [address] [place] [address]Dr. Nette Rios Urea nitrogen/Creatinine [Mass ratio] 15.9 mg/mg Normal [facility] Comment on above: Performed By: #### T SH, BNP, T7, CRP, CMP ####[facility] [address] [place], [place] [address]RlNica Rios TSHon 12-17-2022 TSH 2.485 uIU/mL Normal 0.358-3.740 [facility] Comment on above: Performed By: #### T SH, BNP, T7, CRP, CMP ####[facility] [address] [place], [place] [address]Dk. Nette Rios VITAMIN D 25 OHon 12-17-2022 VIT D 25-OH 53.4 ng/mL Normal [facility] Comment on above: Performed By: #### V ZAIRA, IRON #### [facility] [address] [place], [place] [address] Dr. Nette Rios VIT D RANGES SEE BELOW Normal [facility] Comment on above: Result Comment: <20 ng/mL Vit D deficient 20 - <30 ng/mL Vit D insufficient 30 - 100 ng/mL Vit D sufficient >100 ng/mL Potential Toxicity Performed By: #### V ITAD, IRON #### [facility] [address] [address] [address] Nette Rios [facility]on SARS-CoV-2 (COVID-19) RNA NERY+probe Ql (Unsp spec) Detected Critically abnormal NOT DETECTED [facility] Comment on above: Result Comment: This test is not yet approved or cleared by the [place] FDA. When there are no FDA-approved or cleared tests available, and other criteria are met, FDA can make tests available under an emergency access mechanism called an Emergency Use Authorization (EUA). The EUA for this test is supported by the [place] of Health and Human Service's (HHS's) declaration [...] Performed By: #### C VDTBH #### [facility] [address] [place] [address] Dr. Nette Rios INFLUENZA A AND B AGon 08-18 [facility] SEE BELOW Normal [facility] Comment on above: Result Comment: Nega tive for Flu A protein angiten. Infection due to Flu A cannot be ruled out. Flu A angiten in the sample may be below the detection limit of the test. Performed By: #### I NFLUAB #### [facility] [address] [place] [address] Dr. Nette Rios [facility] SEE BELOW Normal [facility] Comment on above: Result Comment: Nega tive for Flu B protein antigen. Infection due to Flu B cannot be ruled out. Flu B antigen in the sample may be below the detection limit of the test. Performed By: #### I NFLUAB #### [facility] [address] [place] [address] Dr. Nette Rios INFLUENZA A AG Negative Normal NEGATIVE SEE COMMENT [facility] Comment on above: Performed By: #### I NFLUAB #### [facility] [address] [place] [address] Dr. Nette Rios INFLUENZA B AG Negative Normal NEGATIVE SEE COMMENT [facility] Comment on above: Performed By: #### I NFLUAB #### [facility] [address] [place] [address] Dr. Nette Rios MG MAMM SCREEN VERONICA W CADon 1 10-13-2021 MG MAMM SCREEN VERONICA W CAD Patient: BRIE ELDRIDGE Exam Date: 08/12/2022 : 1965 Gender:F Ordering : DR NANCY PLATA . Admission #: [id number] Family : Order #: [id number] CLICK HERE TO VIEW EXAM RADIOLOGY REPORT PROCEDURE: MAMMOGRAM BILATERAL SCREENING DIGITAL WITH COMPUTER AIDED DETECTION COMPARISON: MG MAMM SCREEN VERONICA W CAD, 07/04/2021. INDICATIONS: Screening mammography Calculator Name NCI Breast Cancer Risk Assessment Tool 5 Year Breast Cancer Risk 1.40% Lifetime Breast Cancer Risk 8.90% Personal Breast Cancer No Personal Ovarian Cancer No Treatments None Family Cancers None LOCATION: [facility] BREAST COMPOSITION: Scattered areas fibroglandular [...] Ortega MD on 08/13/2022 at 11:36 Normal [facility] Vital Signs Date Time Vital Sign Value Performing Clinician Faci phil 05-02-2024 13:32-0400 Blood Pressure Location Miko PICKERING [facility] 05-02-2024 13:32-0400 Diastolic blood pressure 72 mm[Hg] Miko PICKERING [facility] 05-02-2024 13:32-0400 Heart rate 72 /min Miko PICKERING [facility] 05-02-2024 13:32-0400 Respiratory rate 16 /min Miko PICKERING [facility] 05-02-2024 13:32-0400 Systolic blood pressure 116 mm[Hg] Miko PICKERING [facility] Encounters Encounter Date Encounter Type Care Provider Facility Start: 05-02-2024 End: 05-02-2024 ambulatory Miko PICKERING Facility:[facility] Start: 05-02-2024 End: 05-02-2024 Patient encounter procedure Miko PICKERING [facility] Start: 03-31-2024 ambulatory Miko PICKERING [facility] Start: 12-17-2022 End: 12-18-[address] NANCY PLATA . Facility: Start: 08-18-2022 End: 08-18-[address] NANCY PLATA . Facility:[facility] Start: 08-12-2022 End: 08-13-[address] NANCY PLATA . Facility:[facility] Start: 02-24-2022 End: 02-25-[address] NANCY PLATA . Facility: Start: 01-07-2022 End: 01-08-[address] NANCY PLATA . Facility: Procedures Date Procedure Procedure Detail Performing Clinician Amputation of hallux Miko PICKERING Repair of joint of right knee Miko SHEPARDSelam Immunizations Immunization Date Immunization Notes Care Provider Fa cili 07-03-2023 influenza virus vaccine, unspecified formulation Miko PICKERING [facility] Payers Date Payer Category Payer Medicare [id number] 1965 Unknown [id number] 2.16.84 [id number] 1965 Unknown [id number] 2.16.84 [id number] 1965 Unknown [id number] 2.16.84 [id number] 1965 Unknown [id number] 2.16.84 [id number] 1965 Unknown [id number] 2.16.84 [id number] 1965 Unknown [id number] 2.16.8 [id number] 1958 Medicare [id number] Social History Date Type Detail Facility Start: 05-02-2024 Tobacco smoking status Never s moked tobacco (finding) [facility] Tobacco smoking status Never [facility] Sex Assigned At Female [facility] Functional Status Date Assessment Result Facility 05-02-2024 [facility] N[facility] 05-02-2024 Note Date & Type [...] Status influenza virus vaccine, inactivated 07/03/2023 Recorded [facility] Comment on above: Result Comment: Elec tronically Signed By: LADAN YOO, Miko Olvera.leslie\Date and Time Signed: 05/02/24 16:21 EDT Clinical [...] authenticated by: RON ORTEGA Date: 2022-12-17 09:58 [facility] Clinical Note 02-24-2022 Note Date & [...] by: RON ORTEGA Date: 2022-02-24 16:38 [facility] Clinical Note 01-07-2022 Note Date & [...] by: DEZ JEWELL Date: 2022-01-07 11:16 [facility] Evaluation + Plan note Note Date & Type Note Facility Evaluation + Plan note No data available for this section [facility] Discharge instructions Note Date & Type Note Facility Hospital Discharge instructions No data available for this section [facility] Progress note Note Date & Type Note Facility Progress note No data available for this section [facility] Summary Purpose Family History No Family History Records FoundNo Family History Records Found No data available for this section No Family History Records Found Advance Directives No Advanced Directives Records FoundNo Advanced Directives Records FoundNo Advanced Directives Records Found Additional Source Comments INFORMATION SOURCE (unrecogn ized section and content) DATE CREATED AUTHOR 12/24/2022 [facility] DATE CREATED AUTHOR AUTHOR'S ORGANIZ ATION 05/03/2024 [facility] DATE CREATED AUTHOR AUTHOR'S ORGANIZ ATION 04/07/2025 [facility] Patient Care team informatio n (unrecognized section and content) Personnel Name: Nancy Plata MD Address: Address: [address] [place] [address] FOR RECORDS PERTAINING TO PATIENTS WHO ARE [...] BE BASED ON THE PRIMARY CLINICAL RECORDS. [facility] [employer] provides no warranty or guarantee of the accuracy or completeness of information in this document.
--- OUTSIDE RECORDS SUMMARY | 2025-05-04 08:46 | XMS_ITS | Clinical Summary ---
Author Organization [facility] Address [address] [place] [address] Care Team Providers Care Janitor And Cleaner Name Role Phone Marshall Bledsoe (Historical) Primary Care Provide r Allergies No known active allergies Medications CALTRATE 600 1,500 MG TAB 0 09/16/2005 Active MULTIVITAMIN TAB Take one(1) tablet daily. 0 09/16/2005 Active Social History Tobacco Use Types Packs/Day Years Used Date Smoking Tobacco: Never Alcohol Use Standard Drinks/Week Comments No 0 (1 standard drink = 0.6 oz pur e alcohol) Comments No Sex and Gender Information Value Date Recorded Sex Assigned at Not on file Legal Sex Female 7:34 AM EST Gender Identity Not on file Sexual Orientation Not on file Last Filed Vital Signs Vital Sign Reading Time Taken Comments Blood Pressure 134/80 09/17/2005 10:00 AM EST Pulse 67 09/17/2005 10:00 AM EST Temperature - - Respiratory Rate - - Oxygen Saturation 97% 09/17/2005 10:00 AM EST Inhaled Oxygen Concentration - - Weight 74.8 kg (165 lb) 09/17/2005 10:00 AM EST Height 170.2 cm (5' 7 ) 09/17/2005 10:00 AM EST Body Mass Index 25.84 09/17/2005 10:00 AM EST Plan of Treatment Health Maintenance Due Date Last Done Comments Anxiety Screening 01/25/1984 Depression Screening 01/25/1984 HIV Screening 01/25/1984 Hepatitis C Screening 01/25/1984 DTaP,Tdap,Td Vaccine (1 - Tdap) 1985 Cervical Cancer Screening [address] Colonography 2011 Cologuard (FIT-DNA) 2011 Colonoscopy 2011 Colorectal Cancer Screening 2011 Diabetes Screening 2011 Fecal Occult Blood 2011 Lipid Screening 2011 Sigmoidoscopy 2011 Pneumococcal Vaccine: 50+ (1 of 1 - PCV) 01/25/2016 Shingrix Vaccine (1 of 2) 01/25/2016 Influenza Vaccine (#1) 2025 Insurance MEDICARE Member Subscriber Plan / Payer (Ef fective 2001-Present) Name:Adri Eldridge Member ID:[id number] Relation to Subscriber:Self Name:Adri Eldridge Subscriber ID:[id number] Payer ID:Not on file Group ID:Not on file Type:Medicare Address: [address] [employer] Care Teams Janitor And Cleaner Relationship Specialty Start Date End Date Marshall Bledsoe (Historical) [address] [place] [phone] PCP - General 09/07/05
--- OUTSIDE RECORDS SUMMARY | 2025-05-04 08:47 | XMS_ITS | CCD ---
Author Organization [facility] Care Team Providers Care Pharmaceutical Botanist Name Role Phone BONI Yousif, DR CRUZ [...] Medication Allergies] Propensity to adverse reactions (disorder) [facility] Repository Medications Current Medications Medication Drug Class(es) [...] Results Test Name Value Interpretation Reference Range [facility] 04-05-2025 [facility] Letter Text Normal [facility] Ambulatory Visit Summaryon 0 05-02-2024 Ambulatory [...] for choosing us for your care. Normal [facility] BNPon 12-17-2022 Natriuretic peptide B (Bld) [Mass/Vol] 87.0 pg/mL Normal <=900.0 [facility] Comment on above: Performed By: #### T SH, BNP, T7, CRP, CMP #### [facility] [address] [place] [address] Dr. Nette Rios CBC AUTO DIFFon 12-17-2022 BASO # 0.1 103/ul Normal 0.0-0.1 [facility] Comment on above: Performed By: #### C BC #### [facility] [address] [place] [address] Dr. Nette Rios Basophils/100 WBC (Bld) 1.2 % Normal 0.2-2.0 [facility] Comment on above: Performed By: #### C BC #### [facility] [address] [place] [address] Dr. Nette Rios EO # 0.3 103/ul Normal 0.0-0.7 [facility] Comment on above: Performed By: #### C BC #### [facility] [address] [place] [address] Dr. Nette Rios Eosinophils/100 WBC (Bld) 5.8 % Normal 0.9-7.0 [facility] Comment on above: Performed By: #### C BC #### [facility] [address] [place] [address] Dr. Nette Rios Erythrocyte distribution width (RBC) [Ratio] 12.6 % Normal 11.0-15.0 [facility] Comment on above: Performed By: #### C BC #### [facility] [address] [place] [address] Dr. Nette Rios Hematocrit (Bld) [Volume fraction] 42.6 % Normal 36.0-48.0 [facility] Comment on above: Performed By: #### C BC #### [facility] [address] [place] [address] Dr. Nette Rios Hemoglobin (Bld) [Mass/Vol] 14.0 g/dL Normal 12.0-16.0 [facility] Comment on above: Performed By: #### C BC #### [facility] [address] [place] [address] Dr. Nette Rios IG # 0.01 10e3/ul Normal 0.00-0.03 [facility] Comment on above: Performed By: #### C BC #### [facility] [address] [place] [address] Dr. Nette Rios IG % 0.2 % Normal 0.0-0.5 [facility] Comment on above: Performed By: #### C BC #### [facility] [address] [place] [address] Dr. Nette Rios LYMPH # 2.7 103/ul Normal 1.2-3.8 [facility] Comment on above: Performed By: #### C BC #### [facility] [address] [place] [address] Dr. Nette Rios Lymphocytes/100 WBC (Bld) 48.0 % Normal 20.5-60.0 [facility] Comment on above: Performed By: #### C BC #### [facility] [address] [place] [address] Dr. Nette Rios MANUAL DIFF REQ NO Normal [facility] Comment on above: Performed By: #### C BC #### [facility] [address] [place] [address] Dr. Nette Rios MCH (RBC) [Entitic mass] 30.6 pg Normal 26.7-34.0 [facility] Comment on above: Performed By: #### C BC #### [facility] [address] [place] [address] Dr. Nette Rios MCHC (RBC) [Mass/Vol] 32.9 g/dL Normal 29.9-35.2 [facility] Comment on above: Performed By: #### C BC #### [facility] [address] [place] [address] Dr. Nette Rios MCV (RBC) [Entitic vol] 93.2 fL Normal 81.0-99.0 [facility] Comment on above: Performed By: #### C BC #### [facility] [address] [place] [address] Dr. Nette Rios MONO # 0.4 103/ul Normal 0.3-0.8 [facility] Comment on above: Performed By: #### C BC #### [facility] [address] [place] [address] Dr. Nette Rios Monocytes/100 WBC (Bld) 7.4 % Normal 1.7-12.0 [facility] Comment on above: Performed By: #### C BC #### [facility] [address] [place] [address] Dr. Nette Rios NEUT # 2.1 103/ul Normal 1.4-6.5 [facility] Comment on above: Performed By: #### C BC #### [facility] [address] [place] [address] Dr. Nette Rios Neutrophils/100 WBC (Bld) 37.4 % Critically low 43.0-75.0 [facility] Comment on above: Performed By: #### C BC #### [facility] [address] [place] [address] Dr. Nette Rios Platelet mean volume (Bld) [Entitic vol] 10.7 fL Normal 9.5-13.5 [facility] Comment on above: Performed By: #### C BC #### [facility] [address] [place] [address] Dr. Nette Rios PLT 279 103/ul Normal 150-450 [facility] Comment on above: Performed By: #### C BC #### [facility] [address] [place] [address] Dr. Nette Rios RBC 4.57 106/ul Normal 4.20-5.40 [facility] Comment on above: Performed By: #### C BC #### [facility] [address] [place] [address] [address] Nette Rios WBC 5.7 103/ul Normal 4.0-11.0 [facility] Comment on above: Performed By: #### C BC #### [facility] [address] [address] [address] Nette Rios CRPon 12-17-2022 CRP [Mass/Vol] mg/L Normal <=1.0 [facility] Comment on above: Performed By: #### T SH, BNP, T7, CRP, CMP ####[facility] [address] [place] [address]Dr. Nette Rios FREE THYROXINE INDEX T7on FTI 2.85 Normal 1.30-4.50 [facility] Comment on above: Performed By: #### T SH, BNP, T7, CRP, CMP ####[facility] [address] [place] [address]Dr. Nette Rios T3U 31.0 % Normal 30.0-39.0 [facility] Comment on above: Performed By: #### T SH, BNP, T7, CRP, CMP ####[facility] [address] [place] [address]DrNica Rios T4 [Mass/Vol] 9.20 ug/dL Normal 4.80-13.[address] [facility] Comment on above: Performed By: #### T SH, BNP, T7, CRP, CMP ####[facility] [address] [place] [address]Dr. Nette Rios GLYCOHEMOGLOBIN A1Con 2022 ADA RECOMMENDATION SEE BELOW Normal [facility] Comment on above: Result Comment: ADA RECOMMENDED LIMIT 4.0 - 6.0 ADA THERAPEUTIC TARGET < 7.0 ACTION SUGGESTED > 7.0 Performed By: #### A 1C ####[facility] [address] [place] [address]Dr. Nette Rios Glucose [Mass/Vol] 97 mg/dL Normal [facility] Comment on above: Performed By: #### A 1C ####[facility] [address] [place] [address]Dr. Nette Rios HbA1c (Bld) [Mass fraction] 5.0 % Normal 4.5-6.2 [facility] Comment on above: Performed By: #### A 1C ####[facility] [address] [place] [address]Dr. Nette Rios IRONon 12-17-2022 Iron [Mass/Vol] 97.0 ug/dL Normal 50.0-170.0 [facility] Comment on above: Performed By: #### V ITAD, IRON #### [facility] [address] [place] [address] [address] Nette Rios PROF 14(COMP METB)on 023 Albumin [Mass/Vol] 4.0 g/dL Normal 3.4-5.0 [facility] Comment on above: Performed By: #### T SH, BNP, T7, CRP, CMP ####[facility] [address] [place] [address]Dr. Nette Rios Albumin/Globulin [Mass ratio] 1.1 {ratio} Normal [facility] Comment on above: Performed By: #### T SH, BNP, T7, CRP, CMP ####[facility] [address] [place] [address]Dr. Nette Rios ALP [Catalytic activity/Vol] 74 U/L Normal 46-116 [facility] Comment on above: Performed By: #### T SH, BNP, T7, CRP, CMP ####[facility] [address] [place] [address]Dr. Nette Rios ALT [Catalytic activity/Vol] 21 U/L Normal 14-59 [facility] Comment on above: Performed By: #### T SH, BNP, T7, CRP, CMP ####[facility] [address] [place] [address]Dr. Nette Rios Anion gap [Moles/Vol] 9.9 mmol/L Normal [facility] Comment on above: Performed By: #### T SH, BNP, T7, CRP, CMP ####[facility] [address] [place] [address]Dr. Nette Rios AST [Catalytic activity/Vol] 16 U/L Normal 15-37 [facility] Comment on above: Performed By: #### T SH, BNP, T7, CRP, CMP ####[facility] [address] [place] [address]Dr. Nette Rios Bilirubin [Mass/Vol] 0.6 mg/dL Normal 0.2-1.0 [facility] Comment on above: Performed By: #### T SH, BNP, T7, CRP, CMP ####[facility] [address] [place] [address]Dr. Nette Rios Calcium [Mass/Vol] 9.3 mg/dL Normal 8.5-10.1 [facility] Comment on above: Performed By: #### T SH, BNP, T7, CRP, CMP ####[facility] [address] [place] [address]Dr. Nette Rios Chloride [Moles/Vol] 104 mmol/L Normal 98-107 [facility] Comment on above: Performed By: #### T SH, BNP, T7, CRP, CMP ####[facility] [address] [place], [place] [address]Dr. Nette Rios CO2 [Moles/Vol] 28.1 mmol/L Normal 21.0-32.0 [facility] Comment on above: Performed By: #### T SH, BNP, T7, CRP, CMP ####[facility] [address] [place], [place] [address]Dr. Nette Rios Creatinine [Mass/Vol] 0.69 mg/dL Normal 0.55-1.02 [facility] Comment on above: Performed By: #### T SH, BNP, T7, CRP, CMP ####[facility] [address] [place], [place] [address]Dr. Nette Rios EGFR-AF FRENCH >60 Normal >=60 [facility] Comment on above: Performed By: #### T SH, BNP, T7, CRP, CMP ####[facility] [address] [place], [place] [address]Dr. Nette Rios EGFR-NON AF FRENCH >60 Normal >=60 [facility] Comment on above: Performed By: #### T SH, BNP, T7, CRP, CMP ####[facility] [address] [place] [address]Dr. Nette Rios Globulin (S) [Mass/Vol] 3.6 g/dL Normal [facility] Comment on above: Performed By: #### T SH, BNP, T7, CRP, CMP ####[facility] [address] [place] [address]Dr. Nette Rios Glucose [Mass/Vol] 100 mg/dL Normal 74-106 [facility] Comment on above: Performed By: #### T SH, BNP, T7, CRP, CMP ####[facility] [address] [place] [address]Dr. Nette Rios Potassium [Moles/Vol] 4.0 mmol/L Normal 3.5-5.1 [facility] Comment on above: Performed By: #### T SH, BNP, T7, CRP, CMP ####[facility] [address] [place] [address]Dr. Nette Rios Protein [Mass/Vol] 7.6 g/dL Normal 6.4-8.2 [facility] Comment on above: Performed By: #### T SH, BNP, T7, CRP, CMP ####[facility] [address] [place] [address]Dr. Nette Rios Sodium [Moles/Vol] 138 mmol/L Normal 136-145 [facility] Comment on above: Performed By: #### T SH, BNP, T7, CRP, CMP ####[facility] [address] [place] [address]Dr. Nette Rios Urea nitrogen [Mass/Vol] 11.0 mg/dL Normal 7.0-18.0 [facility] Comment on above: Performed By: #### T SH, BNP, T7, CRP, CMP ####[facility] [address] [place] [address]Dr. Nette Rios Urea nitrogen/Creatinine [Mass ratio] 15.9 mg/mg Normal [facility] Comment on above: Performed By: #### T SH, BNP, T7, CRP, CMP ####[facility] [address] [place], [place] [address]KeNica Rios TSHon 12-17-2022 TSH 2.485 uIU/mL Normal 0.358-3.740 [facility] Comment on above: Performed By: #### T SH, BNP, T7, CRP, CMP ####[facility] [address] [place], [place] [address]Nx. Nette Rios VITAMIN D 25 OHon 12-17-2022 VIT D 25-OH 53.4 ng/mL Normal [facility] Comment on above: Performed By: #### V ZAIRA, IRON #### [facility] [address] [place], [place] [address] Dr. Nette Rios VIT D RANGES SEE BELOW Normal [facility] Comment on above: Result Comment: <20 ng/mL Vit D deficient 20 - <30 ng/mL Vit D insufficient 30 - 100 ng/mL Vit D sufficient >100 ng/mL Potential Toxicity Performed By: #### V ITAD, IRON #### [facility] [address] [address] [address] Nette Rios Cov[facility]on SARS-CoV-2 (COVID-19) RNA NERY+probe Ql (Unsp spec) Detected Critically abnormal NOT DETECTED [facility] Comment on above: Result Comment: This test is not yet approved or cleared by the [place] FDA. When there are no FDA-approved or cleared tests available, and other criteria are met, FDA can make tests available under an emergency access mechanism called an Emergency Use Authorization (EUA). The EUA for this test is supported by the [place] of Health and Human Service's (HHS's) declaration [...] used). Performed By: #### C VDTBH #### [facility] [address] [place] [address] Dr. Nette Rios INFLUENZA A AND B AGon 08-18 [facility] SEE BELOW Normal [facility] Comment on above: Result Comment: Nega tive for Flu A protein angiten. Infection due to Flu A cannot be ruled out. Flu A angiten in the sample may be below the detection limit of the test. Performed By: #### I NFLUAB #### [facility] [address] [place] [address] Dr. Nette Rios [facility] SEE BELOW Normal [facility] Comment on above: Result Comment: Nega tive for Flu B protein antigen. Infection due to Flu B cannot be ruled out. Flu B antigen in the sample may be below the detection limit of the test. Performed By: #### I NFLUAB #### [facility] [address] [place] [address] Dr. Nette Rios INFLUENZA A AG Negative Normal NEGATIVE SEE COMMENT [facility] Comment on above: Performed By: #### I NFLUAB #### [facility] [address] [place] [address] Dr. Nette Rios INFLUENZA B AG Negative Normal NEGATIVE SEE COMMENT [facility] Comment on above: Performed By: #### I NFLUAB #### [facility] [address] [place] [address] Dr. Nette Rios MG MAMM SCREEN VERONICA W CADon 1 10-13-2021 MG MAMM SCREEN VERONICA W CAD Patient: BRIE ELDRIDGE Exam Date: 08/12/2022 : 1965 Gender:F Ordering : DR NANCY PLATA . Admission #: [id number] Family : Order #: [id number] CLICK HERE TO VIEW EXAM RADIOLOGY REPORT PROCEDURE: MAMMOGRAM BILATERAL SCREENING DIGITAL WITH COMPUTER AIDED DETECTION COMPARISON: MG MAMM SCREEN VERONICA W CAD, 07/04/2021. INDICATIONS: Screening mammography Calculator Name NCI Breast Cancer Risk Assessment Tool 5 Year Breast Cancer Risk 1.40% Lifetime Breast Cancer Risk 8.90% Personal Breast Cancer No Personal Ovarian Cancer No Treatments None Family Cancers None LOCATION: [facility] BREAST COMPOSITION: Scattered areas fibroglandular density. FINDINGS: [...] Ortega MD on 08/13/2022 at 11:36 Normal [facility] Vital Signs Date Time Vital Sign Value Performing Clinician Faci phil 05-02-2024 13:32-0400 Blood Pressure Location Miko PICKERING [facility] 05-02-2024 13:32-0400 Diastolic blood pressure 72 mm[Hg] Miko PICKERING [facility] 05-02-2024 13:32-0400 Heart rate 72 /min Miko PICKERING [facility] 05-02-2024 13:32-0400 Respiratory rate 16 /min Miko PICKERING [facility] 05-02-2024 13:32-0400 Systolic blood pressure 116 mm[Hg] Miko PICKERING [facility] Encounters Encounter Date Encounter Type Care Provider Facility Start: 05-02-2024 End: 05-02-2024 ambulatory Miko PICKERING Facility:[facility] Start: 05-02-2024 End: 05-02-2024 Patient encounter procedure Miko PICKERING [facility] Start: 03-31-2024 ambulatory Miko PICKERING Facility:[facility] Start: 12-17-2022 End: 12-18-[address] NANCY [...] influenza virus vaccine, unspecified formulation Miko PICKERING [facility] Payers Date Payer Category Payer Medicare [id number] 1965 Unknown [id number] 2.16.84 [id number] 1965 Unknown [id number] 2.16.84 [id number] 1965 Unknown [id number] 2.16.84 [id number] 1965 Unknown [id number] 2.16.84 [id number] 1965 Unknown [id number] 2.16.84 [id number] 1965 Unknown [id number] [id number] 1958 Medicare [id number] Social History Date Type Detail Facility Start: 05-02-2024 Tobacco smoking status Never s moked tobacco (finding) [facility] Tobacco smoking status Never [facility] Sex Assigned At Female [facility] Functional Status Date Assessment Result Facility 05-02-2024 Functional Status N/A [facility] Clinical Note 05-02-2024 Note Date & [...] Status influenza virus vaccine, inactivated 07/03/2023 Recorded [facility] Comment on above: Result Comment: Elec tronically [...] by: RON ORTEGA Date: 2022-12-17 09:58 [facility] Clinical Note 02-24-2022 Note Date & Type [...] by: RON ORTEGA Date: 2022-02-24 16:38 [facility] Clinical Note 01-07-2022 Note Date & Type [...] by: DEZ JEWELL Date: 2022-01-07 11:16 [facility] Evaluation + Plan note Note Date & Type Note Facility Evaluation + Plan note No data available for this section [facility] Hospital Discharge instructions Note Date & Type Note Facility Hospital Discharge instructions No data available for this section [facility] Progress note Note Date & Type Note Facility Progress note No data available for this section [facility] Summary Purpose Family History No Family History Records FoundNo Family History Records Found No data available for this section No Family History Records Found Advance Directives No Advanced Directives Records FoundNo Advanced Directives Records FoundNo Advanced Directives Records Found Additional Source Comments INFORMATION SOURCE (unrecogn ized section and content) DATE CREATED AUTHOR 12/24/2022 [facility] DATE CREATED AUTHOR AUTHOR'S ORGANIZ ATION 05/03/2024 [facility] DATE CREATED AUTHOR AUTHOR'S ORGANIZ ATION 04/07/2025 [facility] Patient Care team informatio n (unrecognized section and content) Personnel Name: Nancy Plata MD Address: Address: [address] [place] [address] FOR RECORDS PERTAINING TO PATIENTS WHO ARE [...] BE BASED ON THE PRIMARY CLINICAL RECORDS. [facility] [employer] provides no warranty or guarantee of the accuracy or completeness of information in this document.
[2025-05-04 09:09] LABS: Hematocrit 40.6 % (36.0-48.0); Hemoglobin 13.7 g/dL (12.0-16.0); Immature Granulocytes Abs Auto 0.01 10^3/uL (0.00-0.03); Immature Granulocytes Pct Auto 0.2 % (0.0-0.5); Lymphocytes Absolute Auto 3.2 10^3/uL (1.2-3.8); Mean Corpuscular HGB Conc 33.7 g/dL (29.9-35.2); Mean Corpuscular Hemoglobin 31.6 pg (26.7-34.0); Mean Corpuscular Volume 93.8 fL (81.0-99.0); Platelet Count 273 10^3/uL (150-450); Red Blood Count 4.33 10^6/uL (4.20-5.40); White Blood Count 5.8 10^3/uL (4.0-11.0)
[2025-05-04 09:41] LABS: Alanine Aminotransferase 19 U/L (14-59); Albumin Globulin Ratio 1.2; Albumin Level 4.0 g/dL (3.4-5.0); Alkaline Phosphatase 68 U/L (46-116); Anion Gap 13.2; Aspartate Amino Transferase 18 U/L (15-37); Blood Urea Nitrogen 8.0 mg/dL (7.0-18.0); Calcium 9.1 mg/dL (8.5-10.1); Carbon Dioxide 28.8 mmol/L (21.0-32.0); Chloride 103 mmol/L (98-107); Cholesterol 173 mg/dL (<=200); Estimated GFR (African America >60 (>=60 mL/min/1.73m^2); Estimated GFR (Non-African Ame >60 (>=60 mL/min/1.73m^2); Free T3 2.48 pg/mL (2.18-3.98); Globulin 3.3 g/dL; Glucose 87 mg/dL (74-106); HDL Cholesterol 73 mg/dL (40-60); Potassium 4.0 mmol/L (3.5-5.1); Sodium 141 mmol/L (136-145); Thyroid Stimulating Hormone 2.633 uIU/mL (0.358-3.740); Total Protein 7.3 g/dL (6.4-8.2); Triglycerides 72 mg/dL (<=150); VLDL CHOLESTEROL 14.4 mg/dL
[2025-05-04 09:58] LABS: Iron 94.0 ug/dL (50.0-170.0)
== END 2025-05-04 08:44 | disposition home or self-care (01) ==
LOC: LAB 08:43
PROVIDERS: PCP Family Medicine; Visit Provider Family Medicine
DX: Z00.00 Encounter for general adult medical examination without abnormal findings (principal); E78.5 Hyperlipidemia, unspecified; R73.09 Other abnormal glucose; Z12.12 Encounter for screening for malignant neoplasm of rectum; D64.9 Anemia, unspecified; E03.9 Hypothyroidism, unspecified; I10 Essential (primary) hypertension; R53.83 Other fatigue
CPT/HCPCS: 36415; 80053; 80061; 83036; 83540; 84436; 84443; 84481; 85025

== ENCOUNTER 2025-05-06 12:51 | Outpatient (OUT) | payer MEDICARE, SELFPAY ==
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
--- OUTSIDE RECORDS SUMMARY | 2025-05-06 12:55 | XMS_ITS | Clinical Summary ---
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
--- OUTSIDE RECORDS SUMMARY | 2025-05-06 12:56 | XMS_ITS | CCD ---
Author Organization [facility] Care Team Providers Care Taper/Finisher Name Role Phone BONI Yousif, DR CRUZ [...] Medication Allergies] Propensity to adverse reactions (disorder) [facility] Repository Medications Current Medications Medication Drug [...] Results Test Name Value Interpretation Reference Range [facility] 04-05-2025 [facility] Letter Text Normal [facility] Ambulatory Visit Summaryon 0 05-02-2024 Ambulatory Visit [...] for choosing us for your care. Normal [facility] BNPon 12-17-2022 Natriuretic peptide B (Bld) [Mass/Vol] 87.0 pg/mL Normal <=900.0 [facility] Comment on above: Performed By: #### T SH, BNP, T7, CRP, CMP #### [facility] [address] [place] [address] Dr. Nette Rios CBC AUTO DIFFon 12-17-2022 BASO # 0.1 103/ul Normal 0.0-0.1 [facility] Comment on above: Performed By: #### C BC #### [facility] [address] [place] [address] Dr. Nette Rios Basophils/100 WBC (Bld) 1.2 % Normal 0.2-2.0 [facility] Comment on above: Performed By: #### C BC #### [facility] [address] [place] [address] Dr. Nette Rios EO # 0.3 103/ul Normal 0.0-0.7 [facility] Comment on above: Performed By: #### C BC #### [facility] [address] [place] [address] Dr. Nette Rios Eosinophils/100 WBC (Bld) 5.8 % Normal 0.9-7.0 [facility] Comment on above: Performed By: #### C BC #### [facility] [address] [place] [address] Dr. Nette Rios Erythrocyte distribution width (RBC) [Ratio] 12.6 % Normal 11.0-15.0 [facility] Comment on above: Performed By: #### C BC #### [facility] [address] [place] [address] Dr. Nette Rios Hematocrit (Bld) [Volume fraction] 42.6 % Normal 36.0-48.0 [facility] Comment on above: Performed By: #### C BC #### [facility] [address] [place] [address] Dr. Nette Rios Hemoglobin (Bld) [Mass/Vol] 14.0 g/dL Normal 12.0-16.0 [facility] Comment on above: Performed By: #### C BC #### [facility] [address] [place] [address] Dr. Nette Rios IG # 0.01 10e3/ul Normal 0.00-0.03 [facility] Comment on above: Performed By: #### C BC #### [facility] [address] [place] [address] Dr. Nette Rios IG % 0.2 % Normal 0.0-0.5 [facility] Comment on above: Performed By: #### C BC #### [facility] [address] [place] [address] Dr. Nette Rios LYMPH # 2.7 103/ul Normal 1.2-3.8 [facility] Comment on above: Performed By: #### C BC #### [facility] [address] [place] [address] Dr. Nette Rios Lymphocytes/100 WBC (Bld) 48.0 % Normal 20.5-60.0 [facility] Comment on above: Performed By: #### C BC #### [facility] [address] [place] [address] Dr. Nette Rios MANUAL DIFF REQ NO Normal [facility] Comment on above: Performed By: #### C BC #### [facility] [address] [place] [address] Dr. Nette Rios MCH (RBC) [Entitic mass] 30.6 pg Normal 26.7-34.0 [facility] Comment on above: Performed By: #### C BC #### [facility] [address] [place] [address] Dr. Nette Rios MCHC (RBC) [Mass/Vol] 32.9 g/dL Normal 29.9-35.2 [facility] Comment on above: Performed By: #### C BC #### [facility] [address] [place] [address] Dr. Nette Rios MCV (RBC) [Entitic vol] 93.2 fL Normal 81.0-99.0 [facility] Comment on above: Performed By: #### C BC #### [facility] [address] [place] [address] Dr. Nette Rios MONO # 0.4 103/ul Normal 0.3-0.8 [facility] Comment on above: Performed By: #### C BC #### [facility] [address] [place] [address] Dr. Nette Rios Monocytes/100 WBC (Bld) 7.4 % Normal 1.7-12.0 [facility] Comment on above: Performed By: #### C BC #### [facility] [address] [place] [address] Dr. Nette Rios NEUT # 2.1 103/ul Normal 1.4-6.5 [facility] Comment on above: Performed By: #### C BC #### [facility] [address] [place] [address] Dr. Nette Rios Neutrophils/100 WBC (Bld) 37.4 % Critically low 43.0-75.0 [facility] Comment on above: Performed By: #### C BC #### [facility] [address] [place] [address] Dr. Nette Rios Platelet mean volume (Bld) [Entitic vol] 10.7 fL Normal 9.5-13.5 [facility] Comment on above: Performed By: #### C BC #### [facility] [address] [place] [address] Dr. Nette Rios PLT 279 103/ul Normal 150-450 [facility] Comment on above: Performed By: #### C BC #### [facility] [address] [place] [address] Dr. Nette Rios RBC 4.57 106/ul Normal 4.20-5.40 [facility] Comment on above: Performed By: #### C BC #### [facility] [address] [address] [address] Nette Rios WBC 5.7 103/ul Normal 4.0-11.0 [facility] Comment on above: Performed By: #### C BC #### [facility] [address] [address] [address] Nette Rios CRPon 12-17-2022 CRP [Mass/Vol] mg/L Normal <=1.0 [facility] Comment on above: Performed By: #### T SH, BNP, T7, CRP, CMP ####[facility] [address] [address]Dr. Nette Rios FREE THYROXINE INDEX T7on FTI 2.85 Normal 1.30-4.50 [facility] Comment on above: Performed By: #### T SH, BNP, T7, CRP, CMP ####[facility] [address] [place] [address]Dr. Nette Rios T3U 31.0 % Normal 30.0-39.0 [facility] Comment on above: Performed By: #### T SH, BNP, T7, CRP, CMP ####[facility] [address] [address]DrNica Rios T4 [Mass/Vol] 9.20 ug/dL Normal 4.80-13.90 [facility] Comment on above: Performed By: #### T SH, BNP, T7, CRP, CMP ####[facility] [address] [address]Dr. Nette Rios GLYCOHEMOGLOBIN A1Con 2022 ADA RECOMMENDATION SEE BELOW Normal [facility] Comment on above: Result Comment: ADA RECOMMENDED LIMIT 4.0 - 6.0 ADA THERAPEUTIC TARGET < 7.0 ACTION SUGGESTED > 7.0 Performed By: #### A 1C ####[facility] [address] [address]Dr. Nette Rios Glucose [Mass/Vol] 97 mg/dL Normal [facility] Comment on above: Performed By: #### A 1C ####[facility] [address] [address]Dr. Nette Rios HbA1c (Bld) [Mass fraction] 5.0 % Normal 4.5-6.2 [facility] Comment on above: Performed By: #### A 1C ####[facility] [address] [address]Dr. Nette Rios IRONon 12-17-2022 Iron [Mass/Vol] 97.0 ug/dL Normal 50.0-170.0 [facility] Comment on above: Performed By: #### V ITAD, IRON #### [facility] [address] [address] [address] Nette Rios PROF 14(COMP METB)on 023 Albumin [Mass/Vol] 4.0 g/dL Normal 3.4-5.0 [facility] Comment on above: Performed By: #### T SH, BNP, T7, CRP, CMP ####[facility] [address] [address]Dr. Nette Rios Albumin/Globulin [Mass ratio] 1.1 {ratio} Normal [facility] Comment on above: Performed By: #### T SH, BNP, T7, CRP, CMP ####[facility] [address] [address]Dr. Nette Rios ALP [Catalytic activity/Vol] 74 U/L Normal 46-116 [facility] Comment on above: Performed By: #### T SH, BNP, T7, CRP, CMP ####[facility] [address] [address]Dr. Nette Rios ALT [Catalytic activity/Vol] 21 U/L Normal 14-59 [facility] Comment on above: Performed By: #### T SH, BNP, T7, CRP, CMP ####[facility] [address] [address]Dr. Nette Rios Anion gap [Moles/Vol] 9.9 mmol/L Normal [facility] Comment on above: Performed By: #### T SH, BNP, T7, CRP, CMP ####[facility] [address] [address]Dr. Nette Rios AST [Catalytic activity/Vol] 16 U/L Normal 15-37 [facility] Comment on above: Performed By: #### T SH, BNP, T7, CRP, CMP ####[facility] [address] [address]Dr. Nette Rios Bilirubin [Mass/Vol] 0.6 mg/dL Normal 0.2-1.0 [facility] Comment on above: Performed By: #### T SH, BNP, T7, CRP, CMP ####[facility] [address] [address]Dr. Nette Rios Calcium [Mass/Vol] 9.3 mg/dL Normal 8.5-10.1 [facility] Comment on above: Performed By: #### T SH, BNP, T7, CRP, CMP ####[facility] [address] [address]Dr. Nette Rios Chloride [Moles/Vol] 104 mmol/L Normal 98-107 [facility] Comment on above: Performed By: #### T SH, BNP, T7, CRP, CMP ####[facility] [address] [place], [place] [address]Dr. Nette Rios CO2 [Moles/Vol] 28.1 mmol/L Normal 21.0-32.0 [facility] Comment on above: Performed By: #### T SH, BNP, T7, CRP, CMP ####[facility] [address] [place], [place] [address]Dr. Nette Rios Creatinine [Mass/Vol] 0.69 mg/dL Normal 0.55-1.02 [facility] Comment on above: Performed By: #### T SH, BNP, T7, CRP, CMP ####[facility] [address] [place], [place] [address]Dr. Nette Rios EGFR-AF FAROESE >60 Normal >=60 [facility] Comment on above: Performed By: #### T SH, BNP, T7, CRP, CMP ####[facility] [address] [place], [place] [address]Dr. Nette Rios EGFR-NON AF FAROESE >60 Normal >=60 [facility] Comment on above: Performed By: #### T SH, BNP, T7, CRP, CMP ####[facility] [address] [address]Dr. Nette Rios Globulin (S) [Mass/Vol] 3.6 g/dL Normal [facility] Comment on above: Performed By: #### T SH, BNP, T7, CRP, CMP ####[facility] [address] [address]Dr. Nette Rios Glucose [Mass/Vol] 100 mg/dL Normal 74-106 [facility] Comment on above: Performed By: #### T SH, BNP, T7, CRP, CMP ####[facility] [address] [address]Dr. Nette Rios Potassium [Moles/Vol] 4.0 mmol/L Normal 3.5-5.1 [facility] Comment on above: Performed By: #### T SH, BNP, T7, CRP, CMP ####[facility] [address] [address]Dr. Nette Rios Protein [Mass/Vol] 7.6 g/dL Normal 6.4-8.2 [facility] Comment on above: Performed By: #### T SH, BNP, T7, CRP, CMP ####[facility] [address] [address]Dr. Nette Rios Sodium [Moles/Vol] 138 mmol/L Normal 136-145 [facility] Comment on above: Performed By: #### T SH, BNP, T7, CRP, CMP ####[facility] [address] [address]Dr. Nette Rios Urea nitrogen [Mass/Vol] 11.0 mg/dL Normal 7.0-18.0 [facility] Comment on above: Performed By: #### T SH, BNP, T7, CRP, CMP ####[facility] [address] [address]Dr. Nette Rios Urea nitrogen/Creatinine [Mass ratio] 15.9 mg/mg Normal [facility] Comment on above: Performed By: #### T SH, BNP, T7, CRP, CMP ####[facility] [address] [place], [place] [address]QiNica Rios TSHon 12-17-2022 TSH 2.485 uIU/mL Normal 0.358-3.740 [facility] Comment on above: Performed By: #### T SH, BNP, T7, CRP, CMP ####[facility] [address] [place], [place] [address]Pq. Nette Rios VITAMIN D 25 OHon 12-17-2022 VIT D 25-OH 53.4 ng/mL Normal [facility] Comment on above: Performed By: #### V ZAIRA, IRON #### [facility] [address] [place], [place] [address] Dr. Nette Rios VIT D RANGES SEE BELOW Normal [facility] Comment on above: Result Comment: <20 ng/mL Vit D deficient 20 - <30 ng/mL Vit D insufficient 30 - 100 ng/mL Vit D sufficient >100 ng/mL Potential Toxicity Performed By: #### V ITAD, IRON #### [facility] [address] [address] [address] Nette Rios [facility]on SARS-CoV-2 (COVID-19) RNA NERY+probe Ql (Unsp spec) Detected Critically abnormal NOT DETECTED [facility] Comment on above: Result Comment: This test is not yet approved or cleared by the [place] FDA. When there are no FDA-approved or cleared tests available, and other criteria are met, FDA can make tests available under an emergency access mechanism called an Emergency Use Authorization (EUA). The EUA for this test is supported by the [place] of Health and Human Service's (HHS's) declaration [...] By: #### C VDTBH #### [facility] [address] [place] [address] Dr. Nette Rios INFLUENZA A AND B AGon 08-18 [facility] SEE BELOW Normal [facility] Comment on above: Result Comment: Nega tive for Flu A protein angiten. Infection due to Flu A cannot be ruled out. Flu A angiten in the sample may be below the detection limit of the test. Performed By: #### I NFLUAB #### [facility] [address] [place] [address] Dr. Nette [facility] Normal [facility] Comment on above: Result Comment: Nega tive for Flu B protein antigen. Infection due to Flu B cannot be ruled out. Flu B antigen in the sample may be below the detection limit of the test. Performed By: #### I NFLUAB #### [facility] [address] [place] [address] Dr. Nette Rios INFLUENZA A AG Negative Normal NEGATIVE SEE COMMENT [facility] Comment on above: Performed By: #### I NFLUAB #### [facility] [address] [place] [address] Dr. Nette Rios INFLUENZA B AG Negative Normal NEGATIVE SEE COMMENT [facility] Comment on above: Performed By: #### I NFLUAB #### [facility] [address] [place] [address] Dr. Nette Rios MG MAMM SCREEN VERONICA W CADon 1 10-13-2021 MG MAMM SCREEN VERONICA W CAD Patient: BRIE ELDRIDGE Exam Date: 08/12/2022 : 1965 Gender:F Ordering : DR NANCY PLATA . Admission #: [id number] Family : Order #: [id number] CLICK HERE TO VIEW EXAM RADIOLOGY REPORT PROCEDURE: MAMMOGRAM BILATERAL SCREENING DIGITAL WITH COMPUTER AIDED DETECTION COMPARISON: MG MAMM SCREEN VERONICA W CAD, 07/04/2021. INDICATIONS: Screening mammography Calculator Name NCI Breast Cancer Risk Assessment Tool 5 Year Breast Cancer Risk 1.40% Lifetime Breast Cancer Risk 8.90% Personal Breast Cancer No Personal Ovarian Cancer No Treatments None Family Cancers None LOCATION: [facility] BREAST COMPOSITION: Scattered areas fibroglandular [...] Ortega MD on 08/13/2022 at 11:36 Normal [facility] Vital Signs Date Time Vital Sign Value Performing Clinician Faci phil 05-02-2024 13:32-0400 Blood Pressure Location Miko PICKERING [facility] 05-02-2024 13:32-0400 Diastolic blood pressure 72 mm[Hg] Miko PICKERING [facility] 05-02-2024 13:32-0400 Heart rate 72 /min Miko PICKERING [facility] 05-02-2024 13:32-0400 Respiratory rate 16 /min Miko PICKERING [facility] 05-02-2024 13:32-0400 Systolic blood pressure 116 mm[Hg] Miko PICKERING [facility] Encounters Encounter Date Encounter Type Care Provider Facility Start: 05-02-2024 End: 05-02-2024 ambulatory Miko PICKERING Facility:[facility] Start: 05-02-2024 End: 05-02-2024 Patient encounter procedure Miko PICKERING [facility] Start: 03-31-2024 ambulatory [facility] Start: 12-17-2022 End: 12-18-[address] NANCY [...] influenza virus vaccine, unspecified formulation Miko PICKERING [facility] Payers Date Payer Category Payer Medicare [id number] 1965 Unknown [id number] 2.16.84 [id number] 1965 Unknown [id number] 2.16.84 [id number] 1965 Unknown [id number] 2.16.84 [id number] 1965 Unknown [id number] 2.16.84 [id number] 1965 Unknown [id number] 2.16.84 [id number] 1965 Unknown [id number] 2.16.8 [id number] 1958 Medicare [id number] Social History Date Type Detail Facility Start: 05-02-2024 Tobacco smoking status Never s moked tobacco (finding) [facility] Tobacco smoking status Never [facility] Sex Assigned At Female [facility] Functional Status Date Assessment Result Facility 05-02-2024 [facility] 05-02-2024 Note Date & [...] Status influenza virus vaccine, inactivated 07/03/2023 Recorded [facility] Comment on above: Result Comment: Elec [...] by: RON ORTEGA Date: 2022-12-17 09:58 [facility] Clinical Note 02-24-2022 Note Date & [...] ORTEGA Date: 2022-02-24 16:38 [facility] Clinical Note 01-07-2022 Note Date & [...] JEWELL Date: 2022-01-07 11:16 [facility] Evaluation + Plan note Note Date & Type Note Facility Evaluation + Plan note No data available for this section [facility] Hospital Discharge instructions Note Date & Type Note Facility Hospital Discharge instructions No data available for this section [facility] Progress note Note Date & Type Note Facility Progress note No data available for this section [facility] Summary Purpose Family History No Family History Records FoundNo Family History Records Found No data available for this section No Family History Records Found Advance Directives No Advanced Directives Records FoundNo Advanced Directives Records FoundNo Advanced Directives Records Found Additional Source Comments INFORMATION SOURCE (unrecogn ized section and content) DATE CREATED AUTHOR 12/24/2022 [facility] DATE CREATED AUTHOR AUTHOR'S ORGANIZ ATION 05/03/2024 [facility] DATE CREATED AUTHOR AUTHOR'S ORGANIZ ATION 04/07/2025 [facility] Patient Care team informatio n (unrecognized section and content) Personnel Name: Nancy Plata MD Address: Address: [address] [place] [address] FOR RECORDS PERTAINING TO PATIENTS WHO ARE [...] BE BASED ON THE PRIMARY CLINICAL RECORDS. [facility] [employer] provides no warranty or guarantee of the accuracy or completeness of information in this document.
== END 2025-05-06 12:52 | disposition home or self-care (01) ==
PROVIDERS: PCP Family Medicine; Visit Provider Family Medicine
DX: Z00.00 Encounter for general adult medical examination without abnormal findings (principal); E78.5 Hyperlipidemia, unspecified; R73.09 Other abnormal glucose; Z12.12 Encounter for screening for malignant neoplasm of rectum; D64.9 Anemia, unspecified; E03.9 Hypothyroidism, unspecified; I10 Essential (primary) hypertension; R53.83 Other fatigue

== ENCOUNTER 2025-05-23 16:22 | Emergency (ER) | payer MEDICARE, SELFPAY ==
[2025-05-23 16:28] VITALS: BP 124/83; PULSE 79; TEMP 36.4; O2SAT 95; BMI 22.2
--- NOTE | 2025-05-23 16:35 | PC.NURSE ---
nonbleeding lac above left eye, hematoma to left upper cheek and left temporal area. Pt alert and appropriate.
--- NOTE | 2025-05-23 16:38 | CT_ITS ---
The [address] [address] Patient Name: BRIE ELDRIDGE MRN: [id number] date: 1965 Sex: F Assigned Patient Location: ER Current Patient Location: ER Accession/Order Number: [id number] Exam Date: 05/23/2025 16:50 Report Date: 05/23/2025 17:24 At the request of: SOLE ROY Procedure: CT head/brain wo con CT BRAIN WITHOUT CONTRAST: CLINICAL HISTORY: Fall COMPARISON: None TECHNIQUE: Contiguous axial unenhanced images were obtained through the brain. This CT exam was performed using one or more following dose reduction techniques: Automated exposure control, adjustment of the mA and/or kV according to patient size, or use of iterative reconstruction technique. FINDINGS: There is no evidence of midline shift, intra or extra-axial fluid collection, hemorrhage or CT evidence of acute large vascular stroke. Central involutional changes and chronic small vessel ischemic disease. There are moderate involutional changes of the cerebellar hemispheres with prominence of the posterior fossa subarachnoid spaces. Encephalomalacia frontal lobes notably involving the superior frontal lobes Visualized intraorbital contents appear unremarkable. Visualized paranasal sinuses are clear. The surrounding soft tissues are normal. CT/CT head/brain wo con IMPRESSION: NO ACUTE INTRACRANIAL ABNORMALITY. CENTRAL INVOLUTIONAL CHANGES AND ENCEPHALOMALACIA IS IDENTIFIED. Impression dictated by: Wilfrid Mae M.D. 05/23/2025 5:24 PM Dictation Location: [place] [address] Electronically authenticated by: [id number] Y Date: 05/23/2025 17:24
--- NOTE | 2025-05-23 16:38 | CT_ITS ---
The [address] [address] Patient Name: BRIE ELDRIDGE MRN: [id number] date: 1965 Sex: F Assigned Patient Location: ER Current Patient Location: ER Accession/Order Number: [id number] Exam Date: 05/23/2025 16:50 Report Date: 05/23/2025 17:27 At the request of: SOLE ROY Procedure: CT cervical spine wo con CT CERVICAL SPINE WITHOUT CONTRAST WITH 3D RECONSTRUCTIONS: CLINICAL HISTORY: Fall COMPARISON: None TECHNIQUE: Spiral axial unenhanced images were obtained through the cervical spine. Sagittal, coronal and 3D volume-rendered reconstructions were also reviewed. This CT exam was performed using one or more following dose reduction techniques: Automated exposure control, adjustment of the mA and/or kV according to patient size, or use of iterative reconstruction technique. FINDINGS: No evidence of acute fracture or malalignment. Multilevel degenerative changes identified with moderate disc space narrowing and endplate osteophytosis C6-7 mild disc space narrowing at osteophytosis identified elsewhere. Levocurvature. Multilevel facet arthropathy, predominantly right-sided. Prevertebral soft tissues are unremarkable. CT/CT cervical spine wo con IMPRESSION: NO CERVICAL SPINE FRACTURE Impression dictated by: Wilfrid Mae M.D. 05/23/2025 5:27 PM Dictation Location: [place] [address] Electronically authenticated by: [id number] Y Date: 05/23/2025 17:27
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
--- OUTSIDE RECORDS SUMMARY | 2025-05-23 16:39 | XMS_ITS | CCD ---
Author Organization [facility] Care Team Providers Care Call Or Contact Centre Operator Name Role Phone BONI Yousif, DR CRUZ [...] Referring Unavailable Nancy Plata Primary Care Physician [phone] Allergies Allergy Classification Reported Allergen(s) Allergy Type Date of Onset Reaction(s) Facility (1 source) No Known Medication Allergies; Translations: [No Known Medication Allergies] Propensity to adverse reactions (disorder) [facility] Repository Medications Current Medications Medication Drug Class(es) [...] Test Name Value Interpretation Reference Range [facility] 04-05-2025 CNCO Letter Text Normal [facility] Ambulatory Visit Summaryon 0 05-02-2024 Ambulatory [...] for choosing us for your care. Normal [facility] BNPon 12-17-2022 Natriuretic peptide B (Bld) [Mass/Vol] 87.0 pg/mL Normal <=900.0 [facility] Comment on above: Performed By: #### T SH, BNP, T7, CRP, CMP #### [facility] [address] [place] [address] Dr. Nette Rios CBC AUTO DIFFon 12-17-2022 BASO # 0.1 103/ul Normal 0.0-0.1 [facility] Comment on above: Performed By: #### C BC #### [facility] [address] [place] [address] Dr. Nette Rios Basophils/100 WBC (Bld) 1.2 % Normal 0.2-2.0 [facility] Comment on above: Performed By: #### C BC #### [facility] [address] [place] [address] Dr. Nette Rios EO # 0.3 103/ul Normal 0.0-0.7 [facility] Comment on above: Performed By: #### C BC #### [facility] [address] [place] [address] Dr. Nette Rios Eosinophils/100 WBC (Bld) 5.8 % Normal 0.9-7.0 [facility] Comment on above: Performed By: #### C BC #### [facility] [address] [place] [address] Dr. Nette Rios Erythrocyte distribution width (RBC) [Ratio] 12.6 % Normal 11.0-15.0 [facility] Comment on above: Performed By: #### C BC #### [facility] [address] [place] [address] Dr. Nette Rios Hematocrit (Bld) [Volume fraction] 42.6 % Normal 36.0-48.0 [facility] Comment on above: Performed By: #### C BC #### [facility] [address] [place] [address] Dr. Nette Rios Hemoglobin (Bld) [Mass/Vol] 14.0 g/dL Normal 12.0-16.0 [facility] Comment on above: Performed By: #### C BC #### [facility] [address] [place] [address] Dr. Nette Rios IG # 0.01 10e3/ul Normal 0.00-0.03 [facility] Comment on above: Performed By: #### C BC #### [facility] [address] [place] [address] Dr. Nette Rios IG % 0.2 % Normal 0.0-0.5 [facility] Comment on above: Performed By: #### C BC #### [facility] [address] [place] [address] Dr. Nette Rios LYMPH # 2.7 103/ul Normal 1.2-3.8 [facility] Comment on above: Performed By: #### C BC #### [facility] [address] [place] [address] Dr. Nette Rios Lymphocytes/100 WBC (Bld) 48.0 % Normal 20.5-60.0 [facility] Comment on above: Performed By: #### C BC #### [facility] [address] [place] [address] Dr. Nette Rios MANUAL DIFF REQ NO Normal [facility] Comment on above: Performed By: #### C BC #### [facility] [address] [place] [address] Dr. Nette Rios MCH (RBC) [Entitic mass] 30.6 pg Normal 26.7-34.0 [facility] Comment on above: Performed By: #### C BC #### [facility] [address] [place] [address] Dr. Nette Rios MCHC (RBC) [Mass/Vol] 32.9 g/dL Normal 29.9-35.2 [facility] Comment on above: Performed By: #### C BC #### [facility] [address] [place] [address] Dr. Nette Rios MCV (RBC) [Entitic vol] 93.2 fL Normal 81.0-99.0 [facility] Comment on above: Performed By: #### C BC #### [facility] [address] [place] [address] Dr. Nette Rios MONO # 0.4 103/ul Normal 0.3-0.8 [facility] Comment on above: Performed By: #### C BC #### [facility] [address] [place] [address] Dr. Nette Rios Monocytes/100 WBC (Bld) 7.4 % Normal 1.7-12.0 [facility] Comment on above: Performed By: #### C BC #### [facility] [address] [place] [address] Dr. Nette Rios NEUT # 2.1 103/ul Normal 1.4-6.5 [facility] Comment on above: Performed By: #### C BC #### [facility] [address] [place] [address] Dr. Nette Rios Neutrophils/100 WBC (Bld) 37.4 % Critically low 43.0-75.0 [facility] Comment on above: Performed By: #### C BC #### [facility] [address] [place] [address] Dr. Nette Rios Platelet mean volume (Bld) [Entitic vol] 10.7 fL Normal 9.5-13.5 [facility] Comment on above: Performed By: #### C BC #### [facility] [address] [place] [address] Dr. Nette Rios PLT 279 103/ul Normal 150-450 [facility] Comment on above: Performed By: #### C BC #### [facility] [address] [place] [address] Dr. Nette Rios RBC 4.57 106/ul Normal 4.20-5.40 [facility] Comment on above: Performed By: #### C BC #### [facility] [address] [address] [address] Nette Rios WBC 5.7 103/ul Normal 4.0-11.0 [facility] Comment on above: Performed By: #### C BC #### [facility] [address] [address] [address] Nette Rios CRPon 12-17-2022 CRP [Mass/Vol] mg/L Normal <=1.0 [facility] Comment on above: Performed By: #### T SH, BNP, T7, CRP, CMP ####[facility] [address] [address]Dr. Nette Rios FREE THYROXINE INDEX T7on FTI 2.85 Normal 1.30-4.50 [facility] Comment on above: Performed By: #### T SH, BNP, T7, CRP, CMP ####[facility] [address] [address]Dr. Nette Rios T3U 31.0 % Normal 30.0-39.0 [facility] Comment on above: Performed By: #### T SH, BNP, T7, CRP, CMP ####[facility] [address] [address]DrNica Rios T4 [Mass/Vol] 9.20 ug/dL Normal 4.80-13.90 [facility] Comment on above: Performed By: #### T SH, BNP, T7, CRP, CMP ####[facility] [address] [address]Dr. Nette iRos GLYCOHEMOGLOBIN A1Con 2022 ADA RECOMMENDATION SEE BELOW Normal [facility] Comment on above: Result Comment: ADA RECOMMENDED LIMIT 4.0 - 6.0 ADA THERAPEUTIC TARGET < 7.0 ACTION SUGGESTED > 7.0 Performed By: #### A 1C ####[facility] [address] [address]Dr. Nette Rios Glucose [Mass/Vol] 97 mg/dL Normal [facility] Comment on above: Performed By: #### A 1C ####[facility] [address] [address]Dr. Nette Rios HbA1c (Bld) [Mass fraction] 5.0 % Normal 4.5-6.2 [facility] Comment on above: Performed By: #### A 1C ####[facility] [address] [address]Dr. Nette Rios IRONon 12-17-2022 Iron [Mass/Vol] 97.0 ug/dL Normal 50.0-170.0 [facility] Comment on above: Performed By: #### V ITAD, IRON #### [facility] [address] [address] [address] Nette Rios PROF 14(COMP METB)on 023 Albumin [Mass/Vol] 4.0 g/dL Normal 3.4-5.0 [facility] Comment on above: Performed By: #### T SH, BNP, T7, CRP, CMP ####[facility] [address] [address]Dr. Nette Rios Albumin/Globulin [Mass ratio] 1.1 {ratio} Normal [facility] Comment on above: Performed By: #### T SH, BNP, T7, CRP, CMP ####[facility] [address] [address]Dr. Nette Rios ALP [Catalytic activity/Vol] 74 U/L Normal 46-116 [facility] Comment on above: Performed By: #### T SH, BNP, T7, CRP, CMP ####[facility] [address] [address]Dr. Nette Rios ALT [Catalytic activity/Vol] 21 U/L Normal 14-59 [facility] Comment on above: Performed By: #### T SH, BNP, T7, CRP, CMP ####[facility] [address] [address]Dr. Nette Rios Anion gap [Moles/Vol] 9.9 mmol/L Normal [facility] Comment on above: Performed By: #### T SH, BNP, T7, CRP, CMP ####[facility] [address] [address]Dr. Nette Rios AST [Catalytic activity/Vol] 16 U/L Normal 15-37 [facility] Comment on above: Performed By: #### T SH, BNP, T7, CRP, CMP ####[facility] [address] [address]Dr. Nette Rios Bilirubin [Mass/Vol] 0.6 mg/dL Normal 0.2-1.0 [facility] Comment on above: Performed By: #### T SH, BNP, T7, CRP, CMP ####[facility] [address] [address]Dr. Nette Rios Calcium [Mass/Vol] 9.3 mg/dL Normal 8.5-10.1 [facility] Comment on above: Performed By: #### T SH, BNP, T7, CRP, CMP ####[facility] [address] [address]Dr. Nette Rios Chloride [Moles/Vol] 104 mmol/L Normal 98-107 [facility] Comment on above: Performed By: #### T SH, BNP, T7, CRP, CMP ####[facility] [address] [place], [place] [address]Dr. Nette Rios CO2 [Moles/Vol] 28.1 mmol/L Normal 21.0-32.0 [facility] Comment on above: Performed By: #### T SH, BNP, T7, CRP, CMP ####[facility] [address] [place], [place] [address]Dr. Nette Rios Creatinine [Mass/Vol] 0.69 mg/dL Normal 0.55-1.02 [facility] Comment on above: Performed By: #### T SH, BNP, T7, CRP, CMP ####[facility] [address] [place], [place] [address]Dr. Nette Rios EGFR-AF BOLIVIAN >60 Normal >=60 [facility] Comment on above: Performed By: #### T SH, BNP, T7, CRP, CMP ####[facility] [address] [place], [place] [address]Dr. Nette Rios EGFR-NON AF BOLIVIAN >60 Normal >=60 [facility] Comment on above: Performed By: #### T SH, BNP, T7, CRP, CMP ####[facility] [address] [address]Dr. Nette Rios Globulin (S) [Mass/Vol] 3.6 g/dL Normal [facility] Comment on above: Performed By: #### T SH, BNP, T7, CRP, CMP ####[facility] [address] [address]Dr. Nette Rios Glucose [Mass/Vol] 100 mg/dL Normal 74-106 [facility] Comment on above: Performed By: #### T SH, BNP, T7, CRP, CMP ####[facility] [address] [address]Dr. Nette Rios Potassium [Moles/Vol] 4.0 mmol/L Normal 3.5-5.1 [facility] Comment on above: Performed By: #### T SH, BNP, T7, CRP, CMP ####[facility] [address] [address]Dr. Nette Rios Protein [Mass/Vol] 7.6 g/dL Normal 6.4-8.2 [facility] Comment on above: Performed By: #### T SH, BNP, T7, CRP, CMP ####[facility] [address] [address]Dr. Nette Rios Sodium [Moles/Vol] 138 mmol/L Normal 136-145 [facility] Comment on above: Performed By: #### T SH, BNP, T7, CRP, CMP ####[facility] [address] [address]Dr. Nette Rios Urea nitrogen [Mass/Vol] 11.0 mg/dL Normal 7.0-18.0 [facility] Comment on above: Performed By: #### T SH, BNP, T7, CRP, CMP ####[facility] [address] [address]Dr. Nette Rios Urea nitrogen/Creatinine [Mass ratio] 15.9 mg/mg Normal [facility] Comment on above: Performed By: #### T SH, BNP, T7, CRP, CMP ####[facility] [address] [place], [place] [address]FsNica Rios TSHon 12-17-2022 TSH 2.485 uIU/mL Normal 0.358-3.740 [facility] Comment on above: Performed By: #### T SH, BNP, T7, CRP, CMP ####[facility] [address] [place], [place] [address]En. Nette Rios VITAMIN D 25 OHon 12-17-2022 VIT D 25-OH 53.4 ng/mL Normal [facility] Comment on above: Performed By: #### V ZAIRA, IRON #### [facility] [address] [place], [place] [address] Dr. Nette Rios VIT D RANGES SEE BELOW Normal [facility] Comment on above: Result Comment: <20 ng/mL Vit D deficient 20 - <30 ng/mL Vit D insufficient 30 - 100 ng/mL Vit D sufficient >100 ng/mL Potential Toxicity Performed By: #### V ITAD, IRON #### [facility] [address] [address] [address] Nette Rios Cov[facility]-19 [facility])on SARS-CoV-2 (COVID-19) RNA NERY+probe Ql (Unsp spec) Detected Critically abnormal NOT DETECTED [facility] Comment on above: Result Comment: This test is not yet approved or cleared by the [place] FDA. When there are no FDA-approved or cleared tests available, and other criteria are met, FDA can make tests available under an emergency access mechanism called an Emergency Use Authorization (EUA). The EUA for this test is supported by the [place] of Health and Human Service's (HHS's) declaration [...] used). Performed By: #### C VDTBH #### [facility] [address] [place] [address] Dr. Nette Rios INFLUENZA A AND B AGon 08-18 [facility] SEE BELOW Normal [facility] Comment on above: Result Comment: Nega tive for Flu A protein angiten. Infection due to Flu A cannot be ruled out. Flu A angiten in the sample may be below the detection limit of the test. Performed By: #### I NFLUAB #### [facility] [address] [place] [address] Dr. Nette R[facility] Normal [facility] Comment on above: Result Comment: Nega tive for Flu B protein antigen. Infection due to Flu B cannot be ruled out. Flu B antigen in the sample may be below the detection limit of the test. Performed By: #### I NFLUAB #### [facility] [address] [place] [address] Dr. Nette Rios INFLUENZA A AG Negative Normal NEGATIVE SEE COMMENT [facility] Comment on above: Performed By: #### I NFLUAB #### [facility] [address] [place] [address] Dr. Nette Rios INFLUENZA B AG Negative Normal NEGATIVE SEE COMMENT The [facility] Comment on above: Performed By: #### I NFLUAB #### [facility] [address] [place] [address] Dr. Nette Rios MG MAMM SCREEN VERONICA W CADon 1 10-13-2021 MG MAMM SCREEN VERONICA W CAD Patient: BRIE ELDRIDGE Exam Date: 08/12/2022 : 1965 Gender:F Ordering : DR NANCY PLATA . Admission #: [id number] Family : Order #: [id number] CLICK HERE TO VIEW EXAM RADIOLOGY REPORT PROCEDURE: MAMMOGRAM BILATERAL SCREENING DIGITAL WITH COMPUTER AIDED DETECTION COMPARISON: MG MAMM SCREEN VERONICA W CAD, 07/04/2021. INDICATIONS: Screening mammography Calculator Name NCI Breast Cancer Risk Assessment Tool 5 Year Breast Cancer Risk 1.40% Lifetime Breast Cancer Risk 8.90% Personal Breast Cancer No Personal Ovarian Cancer No Treatments None Family Cancers None LOCATION: [facility] BREAST COMPOSITION: Scattered areas fibroglandular [...] Ortega MD on 08/13/2022 at 11:36 Normal [facility] Vital Signs Date Time Vital Sign Value Performing Clinician Faci phil 05-02-2024 13:32-0400 Blood Pressure Location Miko PICKERING [facility] 05-02-2024 13:32-0400 Diastolic blood pressure 72 mm[Hg] Miko PICKERING [facility] 05-02-2024 13:32-0400 Heart rate 72 /min Miko PICKERING [facility] 05-02-2024 13:32-0400 Respiratory rate 16 /min Miko PICKERING [facility] 05-02-2024 13:32-0400 Systolic blood pressure 116 mm[Hg] Miko PICKERING [facility] Encounters Encounter Date Encounter Type Care Provider Facility Start: 05-02-2024 End: 05-02-2024 ambulatory Miko PICKERING Facility:[facility] Start: 05-02-2024 End: 05-02-2024 Patient encounter procedure Miko PICKERING [facility] Start: 03-31-2024 ambulatory Miko PICKERING [facility] Start: 12-17-2022 End: 12-18-[address] [...] influenza virus vaccine, unspecified formulation Miko PICKERING [facility] Payers Date Payer Category Payer Medicare [id number] 1965 Unknown [id number] 2.16.84 [id number] 1965 Unknown [id number] 2.16.84 [id number] 1965 Unknown [id number] 2.16.84 [id number] 1965 Unknown [id number] 2.16.84 [id number] 1965 Unknown [id number] 2.16.84 [id number] 1965 Unknown [id number] 2.16.8 [id number] 1958 Medicare [id number] Social History Date Type Detail Facility Start: 05-02-2024 Tobacco smoking status Never s moked tobacco (finding) [facility] Tobacco smoking status Never [facility] Sex Assigned At Female [facility] Functional Status Date Assessment Result Facility 05-02-2024 Functional Status N/A [facility] Clinical Note 05-02-2024 Note Date & [...] Status influenza virus vaccine, inactivated 07/03/2023 Recorded [facility] Comment on above: Result Comment: Elec tronically [...] by: RON ORTEGA Date: 2022-12-17 09:58 [facility] Clinical Note 02-24-2022 Note Date & Type [...] by: RON ORTEGA Date: 2022-02-24 16:38 [facility] Clinical Note 01-07-2022 Note Date & Type [...] by: DEZ JEWELL Date: 2022-01-07 11:16 [facility] Evaluation + Plan note Note Date & Type Note Facility Evaluation + Plan note No data available for this section [facility] Hospital Discharge instructions Note Date & Type Note Facility Hospital Discharge instructions No data available for this section [facility] Progress note Note Date & Type Note Facility Progress note No data available for this section [facility] Summary Purpose Family History No Family History Records FoundNo Family History Records Found No data available for this section No Family History Records Found Advance Directives No Advanced Directives Records FoundNo Advanced Directives Records FoundNo Advanced Directives Records Found Additional Source Comments INFORMATION SOURCE (unrecogn ized section and content) DATE CREATED AUTHOR 12/24/2022 [facility] DATE CREATED AUTHOR AUTHOR'S ORGANIZ ATION 05/03/2024 [facility] DATE CREATED AUTHOR AUTHOR'S ORGANIZ ATION 04/07/2025 [facility] Patient Care team informatio n (unrecognized section and content) Personnel Name: Nancy Plata MD Address: Address: [address] [place] [address] FOR RECORDS PERTAINING TO PATIENTS WHO ARE [...] BE BASED ON THE PRIMARY CLINICAL RECORDS. [facility] [employer] provides no warranty or guarantee of the accuracy or completeness of information in this document.
--- NOTE | 2025-05-23 17:33 | PC.NURSE ---
left upper cheek and lac cleansed with hibiclens and saline. abrasion to cheek and lac above left eye did not open up with cleaning.
== END 2025-05-23 17:54 | disposition home or self-care (01) ==
PROVIDERS: Emergency Provider Student in an Organized Health Care Education/Training Program; PCP Family Medicine
DX: S01.112A Laceration without foreign body of left eyelid and periocular area, initial encounter (principal); S09.90XA Unspecified injury of head, initial encounter; W05.0XXA Fall from non-moving wheelchair, initial encounter; Z87.820 Personal history of traumatic brain injury
CPT/HCPCS: 12011; 70450; 72125; 76376; 99284